=== PATIENT | female | born 1935 | race Caucasian/White ===

== ENCOUNTER → 2016-11-08 | Outpatient (CLI) | payer OTHER, BC ==
[~2016-11-08] MED LIST: ACET325T96 PO; ALBUAER19 INH; ALLO100T PO; AMLO-110 PO; ASPEC81 PO; ERGO500037 PO; FURO-85 PO; IPRASOL4 INH; ISOS30TA35 PO; LISI10TA PO; MAGN400T5 PO; METO25TA56 PO; MULT-506 PO; NITR0.4S UT; OMEP40CA41 PO; OXGN; PANT40TA PO; [UNRECOGNIZED DRUG - OTHER] OTB
[2016-11-08 12:26] LABS: BASO % 0.4 %; BASO ABS # 0.03 K/uL (0-0.2); COMPLETE YES; EOS % 1.2 %; HEMATOCRIT 40.9 % (37-47); IG% 0.4 %; LYMPH % 33.6 %; LYMPH ABS # 2.53 K/uL (1.2-3.4); MEAN CORPUSCULAR HEMOGLOBIN 32.2 pg (25-34); MEAN CORPUSCULAR HGB CONC 33.5 g/dl (32-36); MEAN PLATELET VOLUME 9.4 fL (7.4-10.4); MONO % 6.5 %; NEUT % 57.9 %; PLATELET COUNT 225 K/uL (130-400); RED BLOOD COUNT 4.26 M/uL (4.2-5.4); WHITE BLOOD COUNT 7.54 K/uL (4.8-10.8)
[2016-11-08 12:36] LABS: PROTHROMBIN TIME (PATIENT) 10.6 SECONDS (9.0-12.0)
[2016-11-08 12:55] LABS: BLOOD UREA NITROGEN 41 mg/dl (7-18); BUN/CREATININE RATIO 21.5 (10-20); CALCIUM 8.7 mg/dl (8.5-10.1); CARBON DIOXIDE 29 mmol/L (21-32); CHLORIDE 107 mmol/L (98-107); GLUCOSE 155 mg/dl (70-99); SODIUM 143 mmol/L (136-145)
[2016-11-08 13:06] LABS: ALB/GLOB RATIO 0.9 (0.9-2); ALKALINE PHOSPHATASE 129 U/L (45-117); ALT/SGPT 19 U/L (12-78); AST/SGOT 17 U/L (15-37); TOTAL IRON BINDING CAPACITY 279 mcg/dl (250-450)
== END | disposition home or self-care (01) ==
LOC: C.LABBFT 10:35
PROVIDERS: ATTEND Internal Medicine Pulmonary Disease
DX: L30.9 Dermatitis, unspecified (principal)

== ENCOUNTER → 2016-12-21 | Outpatient (CLI) | payer OTHER, BC ==
--- NOTE | 2016-12-21 12:17 | DIAGNOSTIC IMAGING REPORT ---
LEFT KNEE 1 OR 2 VIEWS ROUTINE CLINICAL HISTORY: Left knee pain COMPARISON: None. DISCUSSION: The bones are osteopenic. There are moderate osteoarthritic changes with medial joint compartment narrowing. There are medial joint compartment osteophytes. There are small lateral joint compartment osteophytes. There are tiny dorsal patellar spurs. No acute fractures are visualized. IMPRESSION: 1. No acute fracture 2. Osteopenia 3. Moderate osteoarthritic changes most pronounced within the medial joint compartment Electronically signed by: Nate Ribeiro M.D. 12/21/2016 12:15 PM Dictated Date/Time: 12/21/2016 12:15 PM
--- NOTE | 2016-12-21 12:18 | DIAGNOSTIC IMAGING REPORT ---
L-SPINE MIN 4 VIEWS ROUTINE CLINICAL HISTORY: M54.9 Back [id number] COMPARISON STUDY: No previous studies for comparison. FINDINGS: There is a mild spinal curvature convex to the right. There are no acute fractures. There are moderate multilevel degenerative changes most pronounced at the L1-2 and L2-3 levels. IMPRESSION: Moderate multilevel degenerative change. No acute fractures are visualized. Electronically signed by: Nate Ribeiro M.D. 12/21/2016 12:17 PM Dictated Date/Time: 12/21/2016 12:16 PM
[2016-12-21 12:23] LABS: BASO % 0.6 %; BASO ABS # 0.05 K/uL (0-0.2); COMPLETE YES; EOS % 0.7 %; HEMATOCRIT 37.9 % (37-47); IG% 0.5 %; LYMPH % 36.4 %; LYMPH ABS # 2.98 K/uL (1.2-3.4); MEAN CELL VOLUME 94.3 fL (80-100); MEAN CORPUSCULAR HEMOGLOBIN 31.6 pg (25-34); MEAN CORPUSCULAR HGB CONC 33.5 g/dl (32-36); MEAN PLATELET VOLUME 9.7 fL (7.4-10.4); MONO % 11.4 %; NEUT % 50.4 %; PLATELET COUNT 197 K/uL (130-400); RED BLOOD COUNT 4.02 M/uL (4.2-5.4); WHITE BLOOD COUNT 8.18 K/uL (4.8-10.8)
[2016-12-21 12:38] LABS: BLOOD UREA NITROGEN 34 mg/dl (7-18); BUN/CREATININE RATIO 17.2 (10-20); CALCIUM 9.1 mg/dl (8.5-10.1); CARBON DIOXIDE 28 mmol/L (21-32); CHLORIDE 106 mmol/L (98-107); GLUCOSE 181 mg/dl (70-99); POTASSIUM 5.2 mmol/L (3.5-5.1); SODIUM 140 mmol/L (136-145); URIC ACID 8.9 mg/dl (2.6-7.2)
== END | disposition home or self-care (01) ==
LOC: C.RAD 11:18
PROVIDERS: ATTEND Physician Assistant
DX: M47.816 Spondylosis without myelopathy or radiculopathy, lumbar region (principal); M25.562 Pain in left knee; M85.862 Other specified disorders of bone density and structure, left lower leg; M1A.00X0 Idiopathic chronic gout, unspecified site, without tophus (tophi)

== ENCOUNTER → 2016-12-29 | Outpatient (CLI) | payer OTHER, BC ==
--- NOTE | 2016-12-29 16:11 | DIAGNOSTIC IMAGING REPORT ---
THORACIC SPINE 3 VIEWS ROUTINE CLINICAL HISTORY: Back pain. COMPARISON STUDY: Chest radiograph February 20, 2013. FINDINGS: Alignment of the thoracic spine is anatomic. Vertebral body heights are maintained. No fracture. There is mild multilevel degenerative disc disease. IMPRESSION: 1. No acute thoracic spine fracture. 2. Mild multilevel degenerative disc disease of the thoracic spine. Electronically signed by: Mahad Ribeiro M.D. 12/29/2016 4:08 PM Dictated Date/Time: 12/29/2016 4:01 PM
== END | disposition home or self-care (01) ==
LOC: C.RAD 15:11
PROVIDERS: ATTEND Physician Assistant
DX: R30.0 Dysuria (principal); M51.34 Other intervertebral disc degeneration, thoracic region

== ENCOUNTER → 2017-01-03 | Outpatient (CLI) | payer OTHER, BC ==
[2017-01-03 18:39] LABS: URINE APPEARANCE CLEAR (CLEAR); URINE BILIRUBIN NEG (NEG); URINE COLOR YELLOW; URINE EPITHELIAL CELL AUTO 20-30 /lpf (0-5); URINE NITRITE NEG (NEG); URINE PH 5.5 (4.5-7.5); URINE SPECIFIC GRAVITY 1.017 (1.000-1.030); UROBILINOGEN NEG (NEG)
[2017-01-03 18:44] LABS: MANUAL MICROSCOPIC REQUIRED? NO; REVIEW REQ? NO
== END | disposition home or self-care (01) ==
LOC: C.LABSPEC 18:11
PROVIDERS: ATTEND Physician Assistant
DX: R30.0 Dysuria (principal)

== ENCOUNTER 2017-01-20 17:21 | Emergency (ER) | payer OTHER, BC ==
[~2017-01-20] VITALS: Ht 162.6 cm; Wt 105.0 kg
[~2017-01-20 17:21] MED LIST changes: -AMLO-110 PO; -ERGO500037 PO; -MULT-506 PO; -OMEP40CA41 PO
[2017-01-20 17:29] VITALS: TEMP 36.6; Ht 162.6 cm; Wt 105.0 kg
[2017-01-20] MEDS ORDERED: SODIUM CHLORIDE 0.9% 1000ML 500 ML IV STA (18:12)
[2017-01-20] MEDS ORDERED: SODIUM CHLORIDE 0.9% 1000ML 1,000 ML IV ONE (18:12)
--- NOTE | 2017-01-20 18:28 | EMERGENCY ROOM VISIT NOTE ---
History Report prepared by Florentino: Ale Anne Under the Supervision of: Dr. Kingston Baker M.D. First contact with patient: 18:00 Chief Complaint: DEHYDRATION Stated Complaint: DR PRESCRIBED FLUIDS & ABDOMEN CHECK Nursing Triage Summary: Triage note: Pt reports she has had abd bloating x 2 weeks and had x-rays done today and was called and told to come to ed for further eval. pt reports "he said it might be a partial blockage." pt reports she had bm last night. pt reports generalized abd pain. History of Present Illness The patient is an 81 year old female who presents to the Emergency Room with complaints of persistent abdominal pain and bloating that started two weeks ago. She rates her pain a 4/10. This pain worsens with eating and drinking. Associated symptoms include decreased urination, burning with urinating, intermittent chest pain, worsening lower back pain, and chronic pain in legs. The patient was examined by [facility] today who recommended she come in to the ED after x ray review showed constipation. The patient states that she was sent here for fluids and constipation. She reports having loose stools and frequent bowel movements. Her last bowel movement was last evening. The patient is currently being treated for a UTI and kidney failure. She denies fevers, numbness/weakness of legs, hematochezia, any any additional associated symptoms. The patient reports undergoing a recent chest x- ray, abdomen/pelvis x-ray, and blood work. Source of History: patient, transfer records, family Onset: Two weeks ago Position: abdomen Symptom Intensity: 4/10 Timing: other (Persistent ) Modifying Factors (Worsening): eating, drinking Associated Symptoms: + back pain, + chest pain, + urinary symptoms, No fevers, No hematochezia, No melena, No numbness, No weakness Review of Systems See HPI for pertinent positives & negatives. A total of 10 systems reviewed and were otherwise negative. 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 Nurse's notes were reviewed and I agree with. Family History FH: kidney disease Social History Smoking Status: Never Smoker Alcohol Use: none Drug Use: none Marital Status: Occupation Status: retired Current/Historical Medications Scheduled Albuterol Inhaler (Ventolin Inhaler), 2 PUFFS INH Q4HR PRN Allopurinol (Zyloprim), 100 MG PO DAILY Amlodipine (Norvasc), 5 MG PO QAM Aspirin Enteric Coated (Ecotrin Or Generic *), 81 MG PO DAILY Dexamethasone (Dexamethasone Sodium Phos), 3 DROP OTB 2XWK Ergocalciferol (Vitamin D 70234 Unit), 50,000 UNIT PO MONTHLY Furosemide (Lasix), 20 MG PO DAILY Isosorbide Mononitrate Ext Rel (Imdur Ext Rel), 60 MG PO QAM Lisinopril (Prinivil), 10 MG PO DAILY Magnesium Oxide (Mag-Ox), 400 MG PO DAILY Metoprolol Tartrate (Lopressor) (Lopressor), 12.5 MG PO BID Multivitamin (Multivitamin), 1 TAB PO DAILY Nitroglycerin (Nitrostat), 0.4 MG UT PRN Omeprazole (Prilosec), 40 MG PO QAM Oxygen (Oxygen), 2 LITERS NA HS Scheduled PRN Ipratropium-Albuterol (Duoneb), 1 TREATMENT INH Q4H PRN for SOB/Wheezing Allergies Coded Allergies: Cortisone (Verified Allergy, Intermediate, SWELLING, CHILLS, SHAKINESS, 01/20/17) Levofloxacin (Verified Allergy, Intermediate, SHORTNESS OF BREATH, 01/20/17) shakiness, flushed Aminoglycosides (Verified Allergy, Mild, 01/20/17) Azithromycin (Verified Allergy, Mild, 01/20/17) Bacitracin (Verified Allergy, Mild, 01/20/17) Benzonatate (Verified Allergy, Mild, 01/20/17) Cephalexin (Verified Allergy, Mild, RASH, 01/20/17) Neomycin (Verified Allergy, Mild, 01/20/17) Polymyxin B (Verified Allergy, Mild, 01/20/17) Acetaminophen (Unverified Allergy, Unknown, UNKNOWN, 01/20/17) Atorvastatin (Unverified Allergy, Unknown, UNKNOWN, 01/20/17) Febuxostat (Unverified Allergy, Unknown, UNKNOWN, 01/20/17) Indomethacin (Unverified Allergy, Unknown, UNKNOWN, 01/20/17) Methylprednisolone (Unverified Allergy, Unknown, UNKNOWN, 01/20/17) Oxycodone (Unverified Allergy, Unknown, UNKNOWN, 01/20/17) Prednisone (Unverified Allergy, Unknown, UNKNOWN, 01/20/17) Rosuvastatin (Unverified Allergy, Unknown, UNKNOWN, 01/20/17) Statins (Unverified Allergy, Unknown, UNKNOWN, 01/20/17) Physical Exam Vital Signs Date Time Temp Pulse Resp B/P Pulse Ox O2 Delivery O2 Flow Rate FiO2 01/20/17 20:53 63 18 177/56 93 01/20/17 20:15 63 18 161/54 95 Room Air 01/20/17 18:25 56 18 156/64 96 Room Air 01/20/17 17:29 36.6 62 18 157/79 96 Room Air Physical Exam General: Non ill appearing, older female, in no acute distress. HEENT: Normal cephalic atraumatic. Pupils are equal round and reactive to light. Extraocular movements are intact. Oropharynx is pink with moist mucous membranes. No swelling of the mouth lips or tongue. Neck: Supple with a midline trachea. No meningeal signs or stiffness, no JVD or bruits. No Stridor. Chest: Clear to auscultation bilaterally. No wheezes or rhonchi. No increased work of breathing. Heart: regular rate and rhythm. Abdomen: Soft nontender, nondistended without rebound guarding or rigidity. Extremities: No cyanosis clubbing or edema. No calf tenderness or assymetry Spine/Back. Tenderness to left lower back. Skin: Good turgor without rashes. Neurologic exam: Cranial nerves two through 12 are intact. Motor and sensation are intact and symmetrical throughout. Medical Decision & Procedures ER Provider Diagnostic Interpretation: Radiology results as stated below per my review and radiologist interpretation: MRI LUMBAR SPINE W/O CONTRAST CLINICAL HISTORY: Back pain with left leg radiculopathy. TECHNIQUE: Sagittal and axial T1, T2 and STIR images were obtained. COMPARISON STUDY: No previous studies for comparison. OBSERVATIONS: There is a 1 cm area of marrow replacement involving the inferior L3 vertebral body abutting the L3-4 disc. This lesion is indeterminate, but possibly represents a Schmorl's node. L1-2: There is a mild circumferential disc bulge. There is facet joint arthropathy. There is very minor spinal canal narrowing. There is no significant foraminal stenosis L2-3: There is a circumferential disc bulge. There is facet joint arthropathy. There is mild spinal canal narrowing. L3-4: There is a mild circumferential disc bulge. There is facet joint arthropathy. There is mild spinal canal narrowing. L4-5: There is a mild circumferential disc bulge. There is facet joint arthropathy. There is no significant spinal or foraminal stenosis. L5-S1: No disc protrusions or extrusions. No evidence of spinal canal or neural foraminal compromise. The conus medullaris and cauda equina appear normal. IMPRESSION: 1. Multilevel spondylitic changes with multilevel disc bulges and multilevel facet joint arthropathy. This results in mild spinal stenosis the L1-2, L2-3, and L3-4 levels. 2. 1 cm area of marrow replacement involving the inferior L2-3 vertebral body. While indeterminate, a Schmorl's node is favored Electronically signed by: Nate Ribeiro M.D. 01/20/2017 7:50 PM Dictated Date/Time: 01/20/2017 7:[address] SCAN OF THE ABDOMEN AND PELVIS WITHOUT CONTRAST CLINICAL HISTORY: Generalized abdominal pain COMPARISON STUDY: 11/24/2014 TECHNIQUE: CT scan of the abdomen and pelvis was performed from the lung bases to the proximal femurs. Images are reviewed in the axial, sagittal, and coronal planes. IV contrast was not administered for this examination. CT DOSE: 1891.80 mGy.cm FINDINGS: Lower chest: There are bibasal atelectatic changes. There is subpleural interstitial thickening. There is a 5 mm left lower lobe pulmonary nodule, unchanged the preceding study. There is a small hiatal hernia Liver: The unenhanced liver is normal in size, contour, and attenuation. There is no intrahepatic biliary ductal dilatation. Gallbladder: Surgically absent Spleen: Normal in size and attenuation. Pancreas: Unremarkable. Adrenal glands: Unremarkable. Kidneys: There is a 15 mm left renal cyst. No renal calculi are visualized. No ureteral or bladder calculi are visualized Bowel: There are no transition zones indicate bowel obstruction. There is no acute diverticulitis. The appendix appears normal. Peritoneum: There is no intraperitoneal free air or abdominal ascites. There is a tiny fat-containing umbilical hernia. There is a tiny fat-containing superior ventral hernia. Vasculature: The abdominal aorta is normal in course and caliber. Adenopathy: None. Pelvic viscera: The uterus appears surgically absent. Skeletal structures: No destructive osseous lesions are seen. IMPRESSION: 1. Stable 5 mm left lower lobe pulmonary nodule 2. No evidence of bowel obstruction. No evidence of free air 3. No renal, ureteral, or bladder calculi identified 4. No evidence of acute diverticulitis. Normal appendix. Electronically signed by: Nate Ribeiro M.D. 01/20/2017 7:13 PM Dictated Date/Time: 01/20/2017 7:09 PM Laboratory Results Test 01/20/17 18:42 Total Bilirubin 0.3 mg/dl (0.2-1) Direct Bilirubin 0.1 mg/dl (0-0.2) Aspartate Amino Transf (AST/SGOT) 22 U/L (15-37) Alanine Aminotransferase (ALT/SGPT) 30 U/L (12-78) Alkaline Phosphatase 124 U/L (45-117) Total Creatine Kinase 20 U/L (26-192) Creatine Kinase MB < 0.5 ng/ml (0.5-3.6) Creatine Kinase MB Ratio (0-3.0) Total Protein 6.8 gm/dl (6.4-8.2) Albumin 3.2 gm/dl (3.4-5.0) Lipase 113 U/L (73-393) Laboratory studies as stated above per my review. Medications Administered Medications (Trade) Dose Ordered Sig/Jabier Route Start Time Stop Time Status Last Admin Dose Admin Sodium Chloride 500 ml @ 999 mls/hr Q31M STAT IV 01/20/17 18:12 01/20/17 18:42 DC 01/20/17 18:12 999 MLS/HR Sodium Chloride (Nss 1000ml) 1,000 ml @ 150 mls/hr Q6H40M ONCE IV 01/20/17 18:12 01/20/17 21:19 DC 01/20/17 20:19 150 MLS/HR ECG Indication: back/shoulder pain Rate (beats per minute): 61 Rhythm: normal sinus Findings: 1st degree AV block, no acute ischemic change Comparison ECG Date: December 02, 2015 Change: no significant change ED Course 1801: Past medical records reviewed. The patient was evaluated in room C7, and a complete history and physical examination were performed. 1903: Upon reevaluation, the patient is doing well. She will be going to CT soon. 1946: Patient is at MRI. 2005: Upon reevaluation, the patient is resting comfortably. 2045: Upon reevaluation, the patient had relief of her symptoms. I discussed the results and treatment plan with the patient. She verbalized agreement of the treatment plan. The patient was discharged home. Medical Decision Differentials include, but are not limited to; Constipation, infection, dehydration, cardiac disease, Cauda Equina syndrome, spinal process, bowel obstruction. This patient was sent over by primary care doctor. She was placed in room C7. She had extensive workup done including blood work which shows baseline renal insufficiency. She was found to have constipation on a x-ray. She's been having back pain rating to her leg she also has a bowel or bladder issues in light of this, I did a a lumbar's MRI. I also did a CAT scan of her abdomen there is no evidence of obstruction. She was gently hydrated and was reassessed frequently. She has remained stable she did receive some hydration. Her EKG and cardiac workup does not suggest acute cardiac event nor do her symptoms. CAT scan of the abdomen shows no acute findings or obstruction. MRI does not reveal any evidence of cauda equina syndrome. She has a some degenerative changes that could be causing her back pain but she has no evidence to suggest acute neurologic or cord compromise. She feels good and would like to go home. She does not use a stool softener or MiraLAX. She should return if : increasing pain, worsening of symptoms, fever or chills, any new problems or concerns. She was happy with the plan and discharged to home. Impression Primary Impression: Back pain Additional Impressions: Constipation Lumbar degenerative disc disease Scribe Attestation The scribe's documentation has been prepared under my direction and personally reviewed by me in its entirety. I confirm that the note above accurately reflects all work, treatment, procedures, and medical decision making performed by me. Departure Information Dispostion Home / Self-Care Referrals Cal Birmingham PA-C (PCP) Forms HOME CARE DOCUMENTATION FORM, IMPORTANT VISIT INFORMATION, WORK / SCHOOL INSTRUCTIONS Patient Instructions My [facility] Additional Instructions Rest Drink plenty of fluids May use a stool softener like MiraLAX if needed Return if: Increasing pain, worsening of symptoms, fever or chills, any new problems or concerns. Follow-up with your doctor Monday for recheck Problem Qualifiers
--- NOTE | 2017-01-20 19:14 | DIAGNOSTIC IMAGING REPORT ---
CT SCAN OF THE ABDOMEN AND PELVIS WITHOUT CONTRAST CLINICAL HISTORY: Generalized abdominal pain COMPARISON STUDY: 11/24/2014 TECHNIQUE: CT scan of the abdomen and pelvis was performed from the lung bases to the proximal femurs. Images are reviewed in the axial, sagittal, and coronal planes. IV contrast was not administered for this examination. CT DOSE: 1891.80 mGy.cm FINDINGS: Lower chest: There are bibasal atelectatic changes. There is subpleural interstitial thickening. There is a 5 mm left lower lobe pulmonary nodule, unchanged the preceding study. There is a small hiatal hernia Liver: The unenhanced liver is normal in size, contour, and attenuation. There is no intrahepatic biliary ductal dilatation. Gallbladder: Surgically absent Spleen: Normal in size and attenuation. Pancreas: Unremarkable. Adrenal glands: Unremarkable. Kidneys: There is a 15 mm left renal cyst. No renal calculi are visualized. No ureteral or bladder calculi are visualized Bowel: There are no transition zones indicate bowel obstruction. There is no acute diverticulitis. The appendix appears normal. Peritoneum: There is no intraperitoneal free air or abdominal ascites. There is a tiny fat-containing umbilical hernia. There is a tiny fat-containing superior ventral hernia. Vasculature: The abdominal aorta is normal in course and caliber. Adenopathy: None. Pelvic viscera: The uterus appears surgically absent. Skeletal structures: No destructive osseous lesions are seen. IMPRESSION: 1. Stable 5 mm left lower lobe pulmonary nodule 2. No evidence of bowel obstruction. No evidence of free air 3. No renal, ureteral, or bladder calculi identified 4. No evidence of acute diverticulitis. Normal appendix. Electronically signed by: Nate Ribeiro M.D. 01/20/2017 7:13 PM Dictated Date/Time: 01/20/2017 7:09 PM
[2017-01-20 19:30] LABS: ALKALINE PHOSPHATASE 124 U/L (45-117); ALT/SGPT 30 U/L (12-78); AST/SGOT 22 U/L (15-37)
--- NOTE | 2017-01-20 19:51 | DIAGNOSTIC IMAGING REPORT ---
MRI LUMBAR SPINE W/O CONTRAST CLINICAL HISTORY: Back pain with left leg radiculopathy. TECHNIQUE: Sagittal and axial T1, T2 and STIR images were obtained. COMPARISON STUDY: No previous studies for comparison. OBSERVATIONS: There is a 1 cm area of marrow replacement involving the inferior L3 vertebral body abutting the L3-4 disc. This lesion is indeterminate, but possibly represents a Schmorl's node. L1-2: There is a mild circumferential disc bulge. There is facet joint arthropathy. There is very minor spinal canal narrowing. There is no significant foraminal stenosis L2-3: There is a circumferential disc bulge. There is facet joint arthropathy. There is mild spinal canal narrowing. L3-4: There is a mild circumferential disc bulge. There is facet joint arthropathy. There is mild spinal canal narrowing. L4-5: There is a mild circumferential disc bulge. There is facet joint arthropathy. There is no significant spinal or foraminal stenosis. L5-S1: No disc protrusions or extrusions. No evidence of spinal canal or neural foraminal compromise. The conus medullaris and cauda equina appear normal. IMPRESSION: 1. Multilevel spondylitic changes with multilevel disc bulges and multilevel facet joint arthropathy. This results in mild spinal stenosis the L1-2, L2-3, and L3-4 levels. 2. 1 cm area of marrow replacement involving the inferior L2-3 vertebral body. While indeterminate, a Schmorl's node is favored Electronically signed by: Nate Ribeiro M.D. 01/20/2017 7:50 PM Dictated Date/Time: 01/20/2017 7:44 PM
[2017-01-20] MEDS ORDERED: MULT-506 PO (20:17)
[2017-01-20] MEDS ORDERED: ERGO500037 PO (20:17)
[2017-01-20] MEDS ORDERED: AMLO-110 PO (20:17)
[2017-01-20] MEDS ORDERED: OMEP40CA41 PO (20:17)
[2017-01-20 20:53] VITALS: BP 177/56; PULSE 63; O2SAT 93
== END 2017-01-20 20:51 | disposition home or self-care (01) ==
LOC: C.EDB 17:23 → C.EDC 20:51
DX: M54.5 Low back pain (principal); K59.00 Constipation, unspecified; M51.26 Other intervertebral disc displacement, lumbar region; I44.0 Atrioventricular block, first degree; I25.10 Atherosclerotic heart disease of native coronary artery without angina pectoris; E11.22 Type 2 diabetes mellitus with diabetic chronic kidney disease; K21.9 Gastro-esophageal reflux disease without esophagitis; E78.5 Hyperlipidemia, unspecified; J45.909 Unspecified asthma, uncomplicated; R19.7 Diarrhea, unspecified; N83.209 Unspecified ovarian cyst, unspecified side; Z86.718 Personal history of other venous thrombosis and embolism; Z90.49 Acquired absence of other specified parts of digestive tract; Z98.890 Other specified postprocedural states; Z79.82 Long term (current) use of aspirin; Z79.899 Other long term (current) drug therapy; Z88.1 Allergy status to other antibiotic agents; Z88.5 Allergy status to narcotic agent; Z88.6 Allergy status to analgesic agent; Z88.8 Allergy status to other drugs, medicaments and biological substances; I12.9 Hypertensive chronic kidney disease with stage 1 through stage 4 chronic kidney disease, or unspecified chronic kidney disease; N18.3 Chronic kidney disease, stage 3 (moderate); E55.9 Vitamin D deficiency, unspecified; R60.9 Edema, unspecified; R30.0 Dysuria; R51 Headache; R06.02 Shortness of breath

== ENCOUNTER → 2017-01-20 | Outpatient (CLI) | payer OTHER, BC ==
[2017-01-20 13:51] LABS: BASO % 0.5 %; BASO ABS # 0.04 K/uL (0-0.2); COMPLETE YES; EOS % 2.1 %; HEMATOCRIT 38.3 % (37-47); IG% 0.6 %; LYMPH ABS # 4.25 K/uL (1.2-3.4); MEAN CELL VOLUME 94.8 fL (80-100); MEAN CORPUSCULAR HEMOGLOBIN 31.4 pg (25-34); MEAN CORPUSCULAR HGB CONC 33.2 g/dl (32-36); MEAN PLATELET VOLUME 8.7 fL (7.4-10.4); MONO % 7.6 %; NEUT % 41.2 %; PLATELET COUNT 242 K/uL (130-400); RED BLOOD COUNT 4.04 M/uL (4.2-5.4); WHITE BLOOD COUNT 8.85 K/uL (4.8-10.8)
--- NOTE | 2017-01-20 14:01 | DIAGNOSTIC IMAGING REPORT ---
PA CHEST WITH ABDOMINAL SERIES CLINICAL HISTORY: Constipation. Bloating. FINDINGS: A PA chest radiograph is compared to study dated 03/17/2016. The examination is degraded by patient rotation. The heart is top normal for projection. There is atherosclerotic calcification of the thoracic aorta. Chronic interstitial thickening is unchanged. No airspace consolidation, large pleural effusion, or pneumothorax is seen. The skeletal structures are osteopenic. Degenerative changes noted throughout the thoracic spine. Supine and erect abdominal radiographs are correlated with abdominal CT dated 11/24/2014 and compared to study dated 12/02/2015. There is a nonobstructed abdominal bowel gas pattern. No evidence of intraperitoneal free air is seen. Cholecystectomy clips are identified in the right upper quadrant. There is moderate colonic fecal retention. Calcified phleboliths are observed in the pelvis. There is moderate lumbosacral spondylosis. The bony pelvis appears intact. IMPRESSION: 1. No active disease in the chest. 2. Moderate constipation. Electronically signed by: Dale Parra M.D. 01/20/2017 1:59 PM Dictated Date/Time: 01/20/2017 1:57 PM
[2017-01-20 14:11] LABS: BLOOD UREA NITROGEN 53 mg/dl (7-18); CALCIUM 8.9 mg/dl (8.5-10.1); CARBON DIOXIDE 31 mmol/L (21-32); CHLORIDE 108 mmol/L (98-107); GLUCOSE 216 mg/dl (70-99); MAGNESIUM 2.1 mg/dl (1.8-2.4); PHOSPHORUS 3.3 mg/dl (2.5-4.9); POTASSIUM 4.7 mmol/L (3.5-5.1); SODIUM 144 mmol/L (136-145)
[2017-01-20 14:29] LABS: ALB/GLOB RATIO 0.9 (0.9-2); ALKALINE PHOSPHATASE 130 U/L (45-117); ALT/SGPT 31 U/L (12-78); AST/SGOT 24 U/L (15-37); BLOOD UREA NITROGEN 52 mg/dl (7-18); BUN/CREATININE RATIO 22.7 (10-20); CARBON DIOXIDE 31 mmol/L (21-32); CHLORIDE 109 mmol/L (98-107); GLUCOSE 211 mg/dl (70-99); POTASSIUM 4.6 mmol/L (3.5-5.1); SODIUM 145 mmol/L (136-145)
[2017-01-20 14:54] LABS: URINE APPEARANCE CLEAR (CLEAR); URINE BILIRUBIN NEG (NEG); URINE COLOR YELLOW; URINE EPITHELIAL CELL AUTO >30 /lpf (0-5); URINE NITRITE NEG (NEG); URINE SPECIFIC GRAVITY 1.015 (1.000-1.030); UROBILINOGEN NEG (NEG)
[2017-01-20 15:01] LABS: URINE PROTIEN/CREAT RATIO 0.1 (0-0.2); URINE TOTAL PROTEIN 11.7 mg/dl (0-11.9)
[2017-01-20 15:05] LABS: MANUAL MICROSCOPIC REQUIRED? NO; REVIEW REQ? NO
== END | disposition home or self-care (01) ==
LOC: C.RAD 13:13
PROVIDERS: ATTEND Physician Assistant
DX: I12.9 Hypertensive chronic kidney disease with stage 1 through stage 4 chronic kidney disease, or unspecified chronic kidney disease (principal); N18.3 Chronic kidney disease, stage 3 (moderate); E55.9 Vitamin D deficiency, unspecified; R60.9 Edema, unspecified; R30.0 Dysuria; R51 Headache; K59.00 Constipation, unspecified; R06.02 Shortness of breath

== ENCOUNTER → 2017-02-02 | Outpatient (CLI) | payer OTHER, BC ==
[~2017-02-02] MED LIST changes: -ACET325T96 PO; +AMLO-110 PO; +ERGO500037 PO; +MULT-506 PO; +OMEP40CA41 PO; -PANT40TA PO
--- NOTE | 2017-02-02 14:17 | DIAGNOSTIC IMAGING REPORT ---
ABDOMEN 2VIEW W/PA CHEST RTN CLINICAL HISTORY: K59.00 [id number] Abdominal [id number] COMPARISON STUDY: 01/20/2017 FINDINGS: The heart is at the upper limits of normal in size. A lower lip paraspinal opacity, likely represents a summation of vascular markings and osteophytes. There is no free air. There is no focal pulmonary consolidation. Erect and supine views the abdomen reveal surgical clips within the right upper quadrant. There are no transition zones indicate bowel obstruction. There is scattered stool within the colon. There is a thoracolumbar scoliosis. There are scattered air-fluid levels present. IMPRESSION: No evidence of bowel obstruction. No evidence of free air. Electronically signed by: Nate Ribeiro M.D. 02/02/2017 2:15 PM Dictated Date/Time: 02/02/2017 2:14 PM
== END | disposition home or self-care (01) ==
LOC: C.RAD 12:55
PROVIDERS: ATTEND Physician Assistant
DX: R14.0 Abdominal distension (gaseous) (principal); K59.00 Constipation, unspecified

== ENCOUNTER → 2017-02-24 | Outpatient (CLI) | payer OTHER, BC ==
[2017-02-24 12:40] LABS: URINE APPEARANCE CLEAR (CLEAR); URINE BILIRUBIN NEG (NEG); URINE COLOR YELLOW; URINE EPITHELIAL CELL AUTO >30 /lpf (0-5); URINE NITRITE NEG (NEG); URINE PH 5.5 (4.5-7.5); URINE SPECIFIC GRAVITY 1.016 (1.000-1.030); UROBILINOGEN NEG (NEG)
[2017-02-24 12:45] LABS: MANUAL MICROSCOPIC REQUIRED? NO; REVIEW REQ? NO
== END | disposition home or self-care (01) ==
LOC: C.LABBFT 10:55
PROVIDERS: ATTEND Physician Assistant
DX: R30.0 Dysuria (principal)

== ENCOUNTER → 2017-03-09 | Outpatient (CLI) | payer OTHER, BC ==
--- NOTE | 2017-03-09 11:42 | DIAGNOSTIC IMAGING REPORT ---
RIGHT KNEE 1 OR 2 VIEWS ROUTINE CLINICAL HISTORY: Right knee pain status post trauma COMPARISON: None. DISCUSSION: No acute fractures are visualized. There are degenerative changes most pronounced involving the medial joint compartment. There is no radiographic evidence of significant joint effusion. Vascular calcifications are evident IMPRESSION: Moderate osteoarthritic change. No acute fractures. Electronically signed by: Nate Ribeiro M.D. 03/09/2017 11:41 AM Dictated Date/Time: 03/09/2017 11:40 AM
== END | disposition home or self-care (01) ==
LOC: C.RAD 11:14
PROVIDERS: ATTEND Physician Assistant
DX: M25.561 Pain in right knee (principal); Z91.81 History of falling; M17.11 Unilateral primary osteoarthritis, right knee

== ENCOUNTER → 2017-03-14 | Outpatient (CLI) | payer OTHER, BC ==
--- NOTE | 2017-03-14 11:46 | DIAGNOSTIC IMAGING REPORT ---
GI W/AIR SMALL BOWEL ROUTINE CLINICAL HISTORY: R14.0 Abdominal [id number] COMPARISON STUDY: Chest and abdominal series 03/08/2017. FLUOROSCOPY TIME: 1.6 minutes. 27 images submitted. FINDINGS: The patient swallowed barium without difficulty. The esophagus is normal and course and caliber. No gastroesophageal reflux. Small sliding hiatal hernia. No gastric ulcerations. The duodenal bulb and duodenal C sweep are within normal limits. Multiple additional fluoroscopic spot and overhead images of the abdomen were performed to evaluate the small bowel. The small bowel is normal in course and caliber. No evidence for bowel obstruction. The terminal ileum is normally distensible. Contrast extended into the colon at 20 minutes. Moderate well-formed stool seen within the colon. IMPRESSION: 1. Small hiatus hernia. 2. Small bowel follow-through is within normal limits. 3. Moderate well-formed stool seen within the colon. Electronically signed by: Tr Velásquez M.D. 03/14/2017 11:17 AM Dictated Date/Time: 03/14/2017 11:12 AM
== END | disposition home or self-care (01) ==
LOC: C.RAD 09:19
PROVIDERS: ATTEND Registered Nurse
DX: R14.0 Abdominal distension (gaseous) (principal); K44.9 Diaphragmatic hernia without obstruction or gangrene

== ENCOUNTER → 2017-04-21 | Outpatient (CLI) | payer OTHER, BC ==
[2017-04-21 12:30] LABS: BASO % 0.4 %; BASO ABS # 0.04 K/uL (0-0.2); COMPLETE YES; EOS % 2.2 %; HEMATOCRIT 42.7 % (37-47); IG% 0.2 %; LYMPH % 36.2 %; LYMPH ABS # 3.31 K/uL (1.2-3.4); MEAN CELL VOLUME 94.5 fL (80-100); MEAN CORPUSCULAR HEMOGLOBIN 31.4 pg (25-34); MEAN CORPUSCULAR HGB CONC 33.3 g/dl (32-36); MEAN PLATELET VOLUME 9.9 fL (7.4-10.4); MONO % 7.8 %; NEUT % 53.2 %; PLATELET COUNT 213 K/uL (130-400); RED BLOOD COUNT 4.52 M/uL (4.2-5.4); WHITE BLOOD COUNT 9.14 K/uL (4.8-10.8)
[2017-04-21 12:48] LABS: ALT/SGPT 24 U/L (12-78); AMYLASE 44 U/L (25-115); AST/SGOT 20 U/L (15-37); BLOOD UREA NITROGEN 53 mg/dl (7-18); CALCIUM 9.1 mg/dl (8.5-10.1); CARBON DIOXIDE 28 mmol/L (21-32); CHLORIDE 108 mmol/L (98-107); GLUCOSE 154 mg/dl (70-99); POTASSIUM 4.7 mmol/L (3.5-5.1); SODIUM 141 mmol/L (136-145)
[2017-04-21 12:51] LABS: ALB/GLOB RATIO 0.9 (0.9-2); ALKALINE PHOSPHATASE 111 U/L (45-117); C-REACTIVE PROTEIN < 0.29 mg/dl (0-0.29)
== END | disposition home or self-care (01) ==
LOC: C.LABBFT 09:45
PROVIDERS: ATTEND Internal Medicine
DX: R14.0 Abdominal distension (gaseous) (principal)

== ENCOUNTER → 2017-05-31 | Outpatient (CLI) | payer OTHER, BC ==
[2017-05-31 17:19] LABS: BASO % 0.4 %; BASO ABS # 0.04 K/uL (0-0.2); COMPLETE YES; EOS % 1.5 %; HEMATOCRIT 42.5 % (37-47); IG% 0.5 %; LYMPH % 38.1 %; LYMPH ABS # 3.95 K/uL (1.2-3.4); MEAN CELL VOLUME 92.4 fL (80-100); MEAN CORPUSCULAR HEMOGLOBIN 31.1 pg (25-34); MEAN CORPUSCULAR HGB CONC 33.6 g/dl (32-36); MEAN PLATELET VOLUME 9.8 fL (7.4-10.4); MONO % 6.7 %; NEUT % 52.8 %; PLATELET COUNT 221 K/uL (130-400); WHITE BLOOD COUNT 10.38 K/uL (4.8-10.8)
[2017-05-31 17:29] LABS: URINE APPEARANCE CLEAR (CLEAR); URINE BILIRUBIN NEG (NEG); URINE COLOR YELLOW; URINE EPITHELIAL CELL AUTO 20-30 /lpf (0-5); URINE NITRITE NEG (NEG); URINE SPECIFIC GRAVITY 1.019 (1.000-1.030); UROBILINOGEN NEG (NEG)
[2017-05-31 17:34] LABS: MANUAL MICROSCOPIC REQUIRED? NO; REVIEW REQ? NO
[2017-05-31 17:44] LABS: ALT/SGPT 20 U/L (12-78); AST/SGOT 16 U/L (15-37); BLOOD UREA NITROGEN 40 mg/dl (7-18); BUN/CREATININE RATIO 23.6 (10-20); CARBON DIOXIDE 33 mmol/L (21-32); CHLORIDE 107 mmol/L (98-107); GLUCOSE 154 mg/dl (70-99); POTASSIUM 5.2 mmol/L (3.5-5.1); SODIUM 144 mmol/L (136-145)
[2017-05-31 17:48] LABS: ALB/GLOB RATIO 0.9 (0.9-2); ALKALINE PHOSPHATASE 122 U/L (45-117); TOTAL IRON BINDING CAPACITY 299 mcg/dl (250-450)
[2017-06-01 06:18] LABS: ESTIMATED AVERAGE GLUCOSE 180 mg/dl; HA1C FLAG Normal (Normal)
--- NOTE | 2017-06-12 12:13 | CODING QUERY MEDICAL NECESSITY ---
CQSUPPORTING DIAGNOSIS NEEDED A supporting diagnosis is required for the test/procedure performed on this patient in order for us to be reimbursed by the patient's insurance. Please provide a supporting diagnosis for the following test/procedure listed below next to the test name along with your signature. *If there is no additional diagnosis for this patient that would support the following test/procedure please document that below next to the test/procedure. Test(s)/Procedure(s) that require a supporting diagnosis: DOS 05/31/17 URINE CULTURE TEST GLYCATED HEMOGLOBIN SERUM IRON TESTS TESTS ORDERED BY AKIN ENGLE Provider Signature: Date: Thank you Radha Scott Health Information Management Once completed, please kindly fax back to [phone] For questions please call [phone]
== END | disposition home or self-care (01) ==
LOC: C.LAB1850 16:03
PROVIDERS: ATTEND Physician Assistant
DX: I95.1 Orthostatic hypotension (principal); G47.33 Obstructive sleep apnea (adult) (pediatric)

== ENCOUNTER → 2017-07-12 | Outpatient (CLI) | payer OTHER, BC ==
[2017-07-12 16:41] LABS: BASO % 0.5 %; BASO ABS # 0.04 K/uL (0-0.2); COMPLETE YES; EOS % 2.1 %; HEMATOCRIT 38.7 % (37-47); IG% 0.2 %; LYMPH % 39.7 %; LYMPH ABS # 3.46 K/uL (1.2-3.4); MEAN CELL VOLUME 92.8 fL (80-100); MEAN CORPUSCULAR HEMOGLOBIN 31.2 pg (25-34); MEAN CORPUSCULAR HGB CONC 33.6 g/dl (32-36); MEAN PLATELET VOLUME 9.5 fL (7.4-10.4); MONO % 6.2 %; NEUT % 51.3 %; PLATELET COUNT 209 K/uL (130-400); RED BLOOD COUNT 4.17 M/uL (4.2-5.4); WHITE BLOOD COUNT 8.72 K/uL (4.8-10.8)
[2017-07-12 17:10] LABS: ALT/SGPT 16 U/L (12-78); AST/SGOT 15 U/L (15-37); BLOOD UREA NITROGEN 41 mg/dl (7-18); CALCIUM 9.2 mg/dl (8.5-10.1); CARBON DIOXIDE 30 mmol/L (21-32); CHLORIDE 107 mmol/L (98-107); CREATININE 1.62 mg/dl (0.60-1.20); GLUCOSE 150 mg/dl (70-99); POTASSIUM 4.6 mmol/L (3.5-5.1); SODIUM 143 mmol/L (136-145)
[2017-07-12 17:14] LABS: ALB/GLOB RATIO 0.9 (0.9-2); ALKALINE PHOSPHATASE 108 U/L (45-117); TOTAL IRON BINDING CAPACITY 286 mcg/dl (250-450)
== END | disposition home or self-care (01) ==
LOC: C.LAB1850 15:03
PROVIDERS: ATTEND Physician Assistant
DX: M62.81 Muscle weakness (generalized) (principal)

== ENCOUNTER 2017-08-01 17:37 | Emergency (ER) | payer OTHER, BC ==
[~2017-08-01] VITALS: Ht 162.6 cm; Wt 103.0 kg
[2017-08-01 17:43] VITALS: TEMP 36.8; Ht 162.6 cm; Wt 103.0 kg
[2017-08-01 18:21] LABS: BASO % 0.7 %; BASO ABS # 0.06 K/uL (0-0.2); COMPLETE YES; EOS % 2.8 %; HEMATOCRIT 38.7 % (37-47); IG% 0.2 %; LYMPH % 44.5 %; LYMPH ABS # 3.86 K/uL (1.2-3.4); MEAN CELL VOLUME 93.3 fL (80-100); MEAN CORPUSCULAR HEMOGLOBIN 31.6 pg (25-34); MEAN CORPUSCULAR HGB CONC 33.9 g/dl (32-36); MEAN PLATELET VOLUME 9.1 fL (7.4-10.4); NEUT % 43.8 %; PLATELET COUNT 198 K/uL (130-400); RED BLOOD COUNT 4.15 M/uL (4.2-5.4); WHITE BLOOD COUNT 8.67 K/uL (4.8-10.8)
[2017-08-01 18:31] LABS: PARTIAL THROMBOPLASTIN RATIO 0.9; PROTHROMBIN TIME (PATIENT) 10.3 SECONDS (9.0-12.0)
[2017-08-01 18:37] LABS: BUN/CREATININE RATIO 23.7 (10-20); CALCIUM 8.9 mg/dl (8.5-10.1); CREATININE 1.64 mg/dl (0.60-1.20); POTASSIUM 4.1 mmol/L (3.5-5.1)
--- NOTE | 2017-08-01 19:46 | DIAGNOSTIC IMAGING REPORT ---
R ART DOP DUP UPPER EXT UNI CLINICAL HISTORY: 82 years-old Female presenting with right first digit dusky. TECHNIQUE: Real-time grayscale and color and spectral Doppler ultrasound imaging of the bilateral carotid arteries was performed. NASCET criteria was used in evaluating this study. COMPARISON: None. FINDINGS: Right: Subclavian artery: Patent. Peak systolic velocity 114 cm/s. Brachial artery: Patent. Peak systolic velocity 215 cm/s. Radial artery: Patent. Peak systolic velocity 78 cm/s. Ulnar artery: Patent. Peak systolic velocity 63 cm/s. Normal peripheral arterial waveforms and color Doppler flow also visualized in the first and second digits in the area of clinical interest. IMPRESSION: No evidence of arterial occlusion in the right upper extremity arteries. Electronically signed by: Byron Mccrary M.D. 08/01/2017 7:44 PM Dictated Date/Time: 08/01/2017 7:42 PM
--- NOTE | 2017-08-01 19:57 | EMERGENCY ROOM VISIT NOTE ---
ED Visit Note First contact with patient: 19:55 I have seen and examined this patient with Josee Ledezma and generally agree with the treatment plan as discussed. 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 (11) Mass of ovary Status: Resolved (12) OVARIAN CYST NEC/NOS Status: Resolved (13) Pneumonia Status: Resolved Surgical Problems: (1) Appendectomy Status: Resolved (2) Cholecystectomy Status: Resolved (3) Removal of ovarian cyst Status: Resolved (4) Tonsillectomy Status: Resolved Current/Historical Medications Scheduled Albuterol Inhaler (Ventolin Inhaler), 2 PUFFS INH Q4HR PRN Allopurinol (Zyloprim), 100 MG PO DAILY Amlodipine (Norvasc), 5 MG PO QAM Aspirin Enteric Coated (Ecotrin Or Generic *), 81 MG PO DAILY Dexamethasone (Dexamethasone Sodium Phos), 3 DROP OTB 2XWK Ergocalciferol (Vitamin D 65880 Unit), 50,000 UNIT PO MONTHLY Furosemide (Lasix), 20 MG PO DAILY Home O2 Therapy (Oxygen), 2 LITERS NA HS Isosorbide Mononitrate Ext Rel (Imdur Ext Rel), 60 MG PO QAM Lisinopril (Prinivil), 10 MG PO DAILY Magnesium Oxide (Mag-Ox), 400 MG PO DAILY Metoprolol Tartrate (Lopressor) (Lopressor), 12.5 MG PO BID Multivitamin (Multivitamin), 1 TAB PO DAILY Nitroglycerin (Nitrostat), 0.4 MG UT PRN Omeprazole (Prilosec), 40 MG PO QAM Scheduled PRN Ipratropium-Albuterol (Duoneb), 1 TREATMENT INH Q4H PRN for SOB/Wheezing Allergies Coded Allergies: Cortisone (Verified Allergy, Intermediate, SWELLING, CHILLS, SHAKINESS, 01/20/17) Levofloxacin (Verified Allergy, Intermediate, SHORTNESS OF BREATH, 01/20/17) shakiness, flushed Aminoglycosides (Verified Allergy, Mild, 01/20/17) Azithromycin (Verified Allergy, Mild, 01/20/17) Bacitracin (Verified Allergy, Mild, 01/20/17) Benzonatate (Verified Allergy, Mild, 01/20/17) Cephalexin (Verified Allergy, Mild, RASH, 01/20/17) Neomycin (Verified Allergy, Mild, 01/20/17) Polymyxin B (Verified Allergy, Mild, 01/20/17) Acetaminophen (Unverified Allergy, Unknown, UNKNOWN, 01/20/17) Atorvastatin (Unverified Allergy, Unknown, UNKNOWN, 01/20/17) Febuxostat (Unverified Allergy, Unknown, UNKNOWN, 01/20/17) Indomethacin (Unverified Allergy, Unknown, UNKNOWN, 01/20/17) Methylprednisolone (Unverified Allergy, Unknown, UNKNOWN, 01/20/17) Oxycodone (Unverified Allergy, Unknown, UNKNOWN, 01/20/17) Prednisone (Unverified Allergy, Unknown, UNKNOWN, 01/20/17) Rosuvastatin (Unverified Allergy, Unknown, UNKNOWN, 01/20/17) Statins (Unverified Allergy, Unknown, UNKNOWN, 01/20/17) Vital Signs Date Time Temp Pulse Resp B/P (MAP) Pulse Ox O2 Delivery O2 Flow Rate FiO2 08/01/17 17:43 36.8 70 16 165/85 96 Room Air Laboratory Results 08/01/17 18:02 Red Blood Count 4.15, Mean Corpuscular Volume 93.3, Mean Corpuscular Hemoglobin 31.6, Mean Corpuscular Hemoglobin Concent 33.9, Mean Platelet Volume 9.1, Neutrophils (%) (Auto) 43.8, Lymphocytes (%) (Auto) 44.5, Monocytes (%) (Auto) 8.0, Eosinophils (%) (Auto) 2.8, Basophils (%) (Auto) 0.7, Neutrophils # (Auto) 3.80, Lymphocytes # (Auto) 3.86, Monocytes # (Auto) 0.69, Eosinophils # (Auto) 0.24, Basophils # (Auto) 0.06 08/01/17 18:02 Test 08/01/17 18:02 White Blood Count 8.67 K/uL (4.8-10.8) Red Blood Count 4.15 M/uL (4.2-5.4) Hemoglobin 13.1 g/dL (12.0-16.0) Hematocrit 38.7 % (37-47) Mean Corpuscular Volume 93.3 fL (80-100) Mean Corpuscular Hemoglobin 31.6 pg (25-34) Mean Corpuscular Hemoglobin Concent 33.9 g/dl (32-36) Platelet Count 198 K/uL (130-400) Mean Platelet Volume 9.1 fL (7.4-10.4) Neutrophils (%) (Auto) 43.8 % Lymphocytes (%) (Auto) 44.5 % Monocytes (%) (Auto) 8.0 % Eosinophils (%) (Auto) 2.8 % Basophils (%) (Auto) 0.7 % Neutrophils # (Auto) 3.80 K/uL (1.4-6.5) Lymphocytes # (Auto) 3.86 K/uL (1.2-3.4) Monocytes # (Auto) 0.69 K/uL (0.11-0.59) Eosinophils # (Auto) 0.24 K/uL (0-0.5) Basophils # (Auto) 0.06 K/uL (0-0.2) RDW Standard Deviation 45.6 fL (36.4-46.3) RDW Coefficient of Variation 13.5 % (11.5-14.5) Immature Granulocyte % (Auto) 0.2 % Immature Granulocyte # (Auto) 0.02 K/uL (0.00-0.02) Prothrombin Time 10.3 SECONDS (9.0-12.0) Prothromb Time International Ratio 1.0 (0.9-1.1) Activated Partial Thromboplast Time 23.8 SECONDS (21.0-31.0) Partial Thromboplastin Ratio 0.9 Anion Gap 5.0 mmol/L (3-11) Est Creatinine Clear Calc Drug Dose 30.4 ml/min Estimated GFR () 33.2 Estimated GFR (Non- 28.6 BUN/Creatinine Ratio 23.7 (10-20) Calcium Level 8.9 mg/dl (8.5-10.1) Departure Information Referrals Cal Birmingham PA-C (PCP) Patient Instructions [facility]
--- NOTE | 2017-08-01 20:07 | EMERGENCY ROOM VISIT NOTE ---
History First contact with patient: 17:49 Chief Complaint: FINGER PAIN Stated Complaint: RT HAND, BLACK 2ND DIGIT History of Present Illness The patient is a 82 year old female who presents to the Emergency Room with complaints of discoloration of her right second digit. The patient states that she woke up yesterday morning and noticed that the finger was dark in color. She denies any numbness or pain in the finger. She denies any known trauma to the finger. She denies any history of similar symptoms. The patient is not a smoker. She denies any history of VTE. She denies history of atrial fibrillation. Review of Systems A complete 10 point review of systems was reviewed with the patient with pertinent positives and negatives as per history of present illness. All else were negative. 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 (11) Mass of ovary (12) OVARIAN CYST NEC/NOS (13) Pneumonia Surgical Problems: (1) Appendectomy (2) Cholecystectomy (3) Removal of ovarian cyst (4) Tonsillectomy Family History FH: kidney disease Social History Smoking Status: Never Smoker Alcohol Use: none Drug Use: none Marital Status: Occupation Status: retired Current/Historical Medications Scheduled Albuterol Inhaler (Ventolin Inhaler), 2 PUFFS INH Q4HR PRN Allopurinol (Zyloprim), 100 MG PO DAILY Amlodipine (Norvasc), 5 MG PO QAM Aspirin Enteric Coated (Ecotrin Or Generic *), 81 MG PO DAILY Dexamethasone (Dexamethasone Sodium Phos), 3 DROP OTB 2XWK Ergocalciferol (Vitamin D 80159 Unit), 50,000 UNIT PO MONTHLY Furosemide (Lasix), 20 MG PO DAILY Home O2 Therapy (Oxygen), 2 LITERS NA HS Isosorbide Mononitrate Ext Rel (Imdur Ext Rel), 60 MG PO QAM Lisinopril (Prinivil), 10 MG PO DAILY Magnesium Oxide (Mag-Ox), 400 MG PO DAILY Metoprolol Tartrate (Lopressor) (Lopressor), 12.5 MG PO BID Multivitamin (Multivitamin), 1 TAB PO DAILY Nitroglycerin (Nitrostat), 0.4 MG UT PRN Omeprazole (Prilosec), 40 MG PO QAM Scheduled PRN Ipratropium-Albuterol (Duoneb), 1 TREATMENT INH Q4H PRN for SOB/Wheezing Physical Exam Vital Signs Date Time Temp Pulse Resp B/P (MAP) Pulse Ox O2 Delivery O2 Flow Rate FiO2 08/01/17 20:24 66 18 132/62 97 08/01/17 19:50 66 18 132/62 97 Room Air 08/01/17 17:43 36.8 70 16 165/85 96 Room Air Physical Exam VITALS: Vitals are noted on the nurse's note and reviewed by myself. Vital signs stable. GENERAL: This is an 82-year-old female, in no acute distress, nondiaphoretic, well-developed well-nourished. SKIN: The second finger of the right hand is slightly dusky in color compared to the other fingers. Normal temperature. No tenderness to palpation. Capillary refill within 2 seconds. HEART: Regular rate and rhythm without murmurs gallops or rubs. LUNGS: Clear to auscultation bilaterally without wheezes, rales or rhonchi. NEURO: Patient was alert and oriented to person place and time. Normal sensation to light and sharp touch. Medical Decision & Procedures ER Provider Diagnostic Interpretation: R ART DOP DUP UPPER EXT UNI CLINICAL HISTORY: 82 years-old Female presenting with right first digit dusky. TECHNIQUE: Real-time grayscale and color and spectral Doppler ultrasound imaging of the bilateral carotid arteries was performed. NASCET criteria was used in evaluating this study. COMPARISON: None. FINDINGS: Right: Subclavian artery: Patent. Peak systolic velocity 114 cm/s. Brachial artery: Patent. Peak systolic velocity 215 cm/s. Radial artery: Patent. Peak systolic velocity 78 cm/s. Ulnar artery: Patent. Peak systolic velocity 63 cm/s. Normal peripheral arterial waveforms and color Doppler flow also visualized in the first and second digits in the area of clinical interest. IMPRESSION: No evidence of arterial occlusion in the right upper extremity arteries. Laboratory Results 08/01/17 18:02 Red Blood Count 4.15, Mean Corpuscular Volume 93.3, Mean Corpuscular Hemoglobin 31.6, Mean Corpuscular Hemoglobin Concent 33.9, Mean Platelet Volume 9.1, Neutrophils (%) (Auto) 43.8, Lymphocytes (%) (Auto) 44.5, Monocytes (%) (Auto) 8.0, Eosinophils (%) (Auto) 2.8, Basophils (%) (Auto) 0.7, Neutrophils # (Auto) 3.80, Lymphocytes # (Auto) 3.86, Monocytes # (Auto) 0.69, Eosinophils # (Auto) 0.24, Basophils # (Auto) 0.06 08/01/17 18:02 Test 08/01/17 18:02 White Blood Count 8.67 K/uL (4.8-10.8) Red Blood Count 4.15 M/uL (4.2-5.4) Hemoglobin 13.1 g/dL (12.0-16.0) Hematocrit 38.7 % (37-47) Mean Corpuscular Volume 93.3 fL (80-100) Mean Corpuscular Hemoglobin 31.6 pg (25-34) Mean Corpuscular Hemoglobin Concent 33.9 g/dl (32-36) Platelet Count 198 K/uL (130-400) Mean Platelet Volume 9.1 fL (7.4-10.4) Neutrophils (%) (Auto) 43.8 % Lymphocytes (%) (Auto) 44.5 % Monocytes (%) (Auto) 8.0 % Eosinophils (%) (Auto) 2.8 % Basophils (%) (Auto) 0.7 % Neutrophils # (Auto) 3.80 K/uL (1.4-6.5) Lymphocytes # (Auto) 3.86 K/uL (1.2-3.4) Monocytes # (Auto) 0.69 K/uL (0.11-0.59) Eosinophils # (Auto) 0.24 K/uL (0-0.5) Basophils # (Auto) 0.06 K/uL (0-0.2) RDW Standard Deviation 45.6 fL (36.4-46.3) RDW Coefficient of Variation 13.5 % (11.5-14.5) Immature Granulocyte % (Auto) 0.2 % Immature Granulocyte # (Auto) 0.02 K/uL (0.00-0.02) Prothrombin Time 10.3 SECONDS (9.0-12.0) Prothromb Time International Ratio 1.0 (0.9-1.1) Activated Partial Thromboplast Time 23.8 SECONDS (21.0-31.0) Partial Thromboplastin Ratio 0.9 Anion Gap 5.0 mmol/L (3-11) Est Creatinine Clear Calc Drug Dose 30.4 ml/min Estimated GFR () 33.2 Estimated GFR (Non- 28.6 BUN/Creatinine Ratio 23.7 (10-20) Calcium Level 8.9 mg/dl (8.5-10.1) ECG Rate (beats per minute): 71 Rhythm: normal sinus Findings: no acute ischemic change, no ectopy Medical Decision The patient was evaluated as above. The finger is slightly dusky compared to the other fingers. There is normal capillary refill. There is no pain or numbness of the finger. Labs are unremarkable. No evidence of infection. Arterial ultrasound was performed and does not show any blood clots. The patient is not in atrial fibrillation. She may need further workup for this, however I do feel this can safely be performed as an outpatient. Her symptoms may be secondary to Raynaud syndrome. She was advised to follow-up closely with her primary care provider. She verbalized understanding of my assessment and treatment plan and was discharged home in good condition. The patient was independently evaluated by Dr. Koch, ED attending physician , who agreed with my assessment and treatment plan. Medication Reconcilliation Current Medication List: was personally reviewed by me Blood Pressure Screening Patient's blood pressure: Normal blood pressure Impression Primary Impression: Discoloration of skin of finger Departure Information Dispostion Home / Self-Care Condition GOOD Referrals Cal Birmingham PA-C (PCP) Patient Instructions My [facility] [employer] Additional Instructions Follow-up with your primary care provider within 48 hours for a recheck. He may need more testing as an outpatient. Return here for any worsening symptoms or any pain of the finger.
[2017-08-01 20:24] VITALS: BP 132/62; PULSE 66; O2SAT 97
== END 2017-08-01 20:20 | disposition home or self-care (01) ==
LOC: C.EDB 17:38 → C.EDD 20:20
DX: R23.8 Other skin changes (principal); J45.909 Unspecified asthma, uncomplicated; I25.10 Atherosclerotic heart disease of native coronary artery without angina pectoris; I12.9 Hypertensive chronic kidney disease with stage 1 through stage 4 chronic kidney disease, or unspecified chronic kidney disease; E11.22 Type 2 diabetes mellitus with diabetic chronic kidney disease; N18.9 Chronic kidney disease, unspecified; K21.9 Gastro-esophageal reflux disease without esophagitis; Z87.01 Personal history of pneumonia (recurrent); Z86.718 Personal history of other venous thrombosis and embolism; Z90.49 Acquired absence of other specified parts of digestive tract; Z90.89 Acquired absence of other organs; Z98.890 Other specified postprocedural states; Z79.82 Long term (current) use of aspirin; Z79.899 Other long term (current) drug therapy

== ENCOUNTER → 2017-08-14 | Outpatient (CLI) | payer OTHER, BC ==
[2017-08-14 12:11] LABS: HEMATOCRIT 40.5 % (37-47); MEAN CELL VOLUME 95.7 fL (80-100); MEAN CORPUSCULAR HGB CONC 32.3 g/dl (32-36); MEAN PLATELET VOLUME 9.9 fL (7.4-10.4); PLATELET COUNT 212 K/uL (130-400); RED BLOOD COUNT 4.23 M/uL (4.2-5.4)
[2017-08-14 12:22] LABS: BLOOD UREA NITROGEN 48 mg/dl (7-18); BUN/CREATININE RATIO 24.7 (10-20); CALCIUM 8.8 mg/dl (8.5-10.1); CARBON DIOXIDE 27 mmol/L (21-32); CHLORIDE 106 mmol/L (98-107); CREATININE 1.95 mg/dl (0.60-1.20); GLUCOSE 222 mg/dl (70-99); POTASSIUM 4.5 mmol/L (3.5-5.1); SODIUM 142 mmol/L (136-145)
[2017-08-14 12:23] LABS: PHOSPHORUS 3.2 mg/dl (2.5-4.9)
[2017-08-14 17:39] LABS: URINE APPEARANCE CLEAR (CLEAR); URINE BILIRUBIN NEG (NEG); URINE COLOR YELLOW; URINE EPITHELIAL CELL AUTO >30 /lpf (0-5); URINE NITRITE NEG (NEG); UROBILINOGEN NEG (NEG)
[2017-08-14 17:53] LABS: MANUAL MICROSCOPIC REQUIRED? NO; REVIEW REQ? NO
[2017-08-14 17:57] LABS: URINE PROTIEN/CREAT RATIO 0.1 (0-0.2); URINE TOTAL PROTEIN 8.1 mg/dl (0-11.9)
== END | disposition home or self-care (01) ==
LOC: C.LABBFT 10:25
PROVIDERS: ATTEND Internal Medicine Nephrology
DX: I10 Essential (primary) hypertension (principal); N18.3 Chronic kidney disease, stage 3 (moderate); E55.9 Vitamin D deficiency, unspecified

== ENCOUNTER → 2017-12-11 | Outpatient (CLI) | payer OTHER, BC ==
[~2017-12-11] MED LIST changes: -ALLO100T PO; -AMLO-110 PO; -MAGN400T5 PO; -OMEP40CA41 PO; +RANI150T3 PO
[2017-12-11 16:33] LABS: HEMATOCRIT 40.9 % (37-47); MEAN CELL VOLUME 95.8 fL (80-100); MEAN CORPUSCULAR HEMOGLOBIN 30.4 pg (25-34); MEAN CORPUSCULAR HGB CONC 31.8 g/dl (32-36); MEAN PLATELET VOLUME 9.8 fL (7.4-10.4); PLATELET COUNT 256 K/uL (130-400); RED CELL DISTRIBUTION WIDTH CV 13.5 % (11.5-14.5); RED CELL DISTRIBUTION WIDTH SD 46.3 fL (36.4-46.3); WHITE BLOOD COUNT 10.09 K/uL (4.8-10.8)
[2017-12-11 16:50] LABS: ALBUMIN 3.5 gm/dl (3.4-5.0); BLOOD UREA NITROGEN 52 mg/dl (7-18); CALCIUM 9.4 mg/dl (8.5-10.1); CARBON DIOXIDE 29 mmol/L (21-32); CREATININE 1.78 mg/dl (0.60-1.20); GLUCOSE 169 mg/dl (70-99); PHOSPHORUS 3.2 mg/dl (2.5-4.9); SODIUM 143 mmol/L (136-145)
== END | disposition home or self-care (01) ==
LOC: C.LABBFT 12:27
PROVIDERS: ATTEND Internal Medicine Nephrology
DX: I10 Essential (primary) hypertension (principal); R60.9 Edema, unspecified; E55.9 Vitamin D deficiency, unspecified; N18.3 Chronic kidney disease, stage 3 (moderate)

== ENCOUNTER → 2018-04-12 | Outpatient (CLI) | payer OTHER, BC ==
[~2018-04-12] MED LIST changes: +IPRA-64 INH; -IPRASOL4 INH
[2018-04-12 12:29] LABS: HEMATOCRIT 39.4 % (37-47); MEAN CELL VOLUME 95.2 fL (80-100); MEAN CORPUSCULAR HEMOGLOBIN 31.4 pg (25-34); MEAN PLATELET VOLUME 9.7 fL (7.4-10.4); PLATELET COUNT 233 K/uL (130-400); RED CELL DISTRIBUTION WIDTH CV 13.1 % (11.5-14.5); RED CELL DISTRIBUTION WIDTH SD 45.5 fL (36.4-46.3); WHITE BLOOD COUNT 8.36 K/uL (4.8-10.8)
[2018-04-12 12:40] LABS: ALBUMIN 3.4 gm/dl (3.4-5.0); BLOOD UREA NITROGEN 51 mg/dl (7-18); CALCIUM 9.1 mg/dl (8.5-10.1); CARBON DIOXIDE 29 mmol/L (21-32); GLUCOSE 197 mg/dl (70-99); PHOSPHORUS 3.7 mg/dl (2.5-4.9); POTASSIUM 5.6 mmol/L (3.5-5.1); SODIUM 141 mmol/L (136-145)
== END | disposition home or self-care (01) ==
LOC: C.LABBFT 10:23
PROVIDERS: ATTEND Internal Medicine Nephrology
DX: I12.9 Hypertensive chronic kidney disease with stage 1 through stage 4 chronic kidney disease, or unspecified chronic kidney disease (principal); R60.9 Edema, unspecified; N18.3 Chronic kidney disease, stage 3 (moderate); E55.9 Vitamin D deficiency, unspecified

== ENCOUNTER → 2018-04-18 | Outpatient (CLI) | payer OTHER, BC ==
[2018-04-18 13:00] LABS: ALBUMIN 3.5 gm/dl (3.4-5.0); BLOOD UREA NITROGEN 48 mg/dl (7-18); CARBON DIOXIDE 27 mmol/L (21-32); CREATININE 2.03 mg/dl (0.60-1.20); GLUCOSE 177 mg/dl (70-99); PHOSPHORUS 3.2 mg/dl (2.5-4.9); POTASSIUM 4.6 mmol/L (3.5-5.1); SODIUM 143 mmol/L (136-145)
== END | disposition home or self-care (01) ==
LOC: C.LABBFT 11:07
PROVIDERS: ATTEND Internal Medicine Nephrology
DX: N18.3 Chronic kidney disease, stage 3 (moderate) (principal)

== ENCOUNTER 2019-07-16 16:23 | Inpatient (IN) ==
[2019-07-16 17:08] LABS: Basophils # (auto) 0.02 K/uL (0-0.2); Basophils % (auto) 0.2 %; Eosinophils # (auto) 0.13 K/uL (0-0.5); Eosinophils % (auto) 1.4 %; Hematocrit (blood only) 37.9 % (37-47); Immature Granulocytes # (auto) 0.02 K/uL (0.00-0.02); Immature Granulocytes % (auto) 0.2 %; Lymphocytes # (auto) 2.89 K/uL (1.2-3.4); Lymphocytes % (auto) 31.4 %; Mean Corpuscular Hemoglobin 31.2 pg (25-34); Mean Corpuscular Hgb Conc 34.3 g/dL (32-36); Mean Corpuscular Volume 90.9 fL (80-100); Monocytes % (auto) 6.5 %; Neutrophils # (auto) 5.55 K/uL (1.4-6.5); Neutrophils % (auto) 60.3 %; Platelet Count 247 K/uL (130-400); RDW Coefficient of Variation 13.2 % (11.5-14.5); RDW Standard Deviation 43.7 fL (36.4-46.3); Red Blood Count 4.17 M/uL (4.2-5.4); White Blood Count 9.21 K/uL (4.8-10.8)
[2019-07-16 17:25] LABS: Alanine Aminotransferase 19 U/L (12-78); Albumin Level 3.4 gm/dl (3.4-5.0); Aspartate Aminotransferase 19 U/L (15-37); BUN Creatinine Ratio 19.3 (10-20); Blood Urea Nitrogen 44 mg/dl (7-18); Calcium 9.5 mg/dl (8.5-10.1); Carbon Dioxide 26 mmol/L (21-32); Chloride 106 mmol/L (98-107); Est GFR (African American) 22.1; Est GFR (Non-African American) 19.1; Glucose 191 mg/dl (70-99); Magnesium 1.9 mg/dl (1.8-2.4); Potassium 4.4 mmol/L (3.5-5.1); Sodium 139 mmol/L (136-145)
[2019-07-16 17:26] LABS: Partial Thromboplastin Ratio 0.9; Partial Thromboplastin Time 23.9 Seconds (21.0-31.0); Prothrombin Time 10.2 Seconds (9.0-12.0)
[2019-07-16 17:28] LABS: Albumin Globulin Ratio 0.8 (0.9-2); Alkaline Phosphatase 133 U/L (45-117); Bilirubin,Total 0.5 mg/dl (0.2-1); Globulin 4.3 gm/dl (2.5-4.0); Total Protein 7.7 gm/dl (6.4-8.2)
--- NOTE | 2019-07-16 18:48 | History & Physical Report ---
Date of Service July 16, 2019 Assessment & Plan (1) CVA (cerebral vascular accident): Admit telemetry CT head in ED showed subacute infarct Will follow up with MR brain, MRA brain, carotid doppler, LE US ASA suppository - npo until seen by speech due to dysphagia Consult neurology Trop, echo with bubble study CBC, prp am PT/OT (2) Hypertension: hold antihypertensives for permissive hypertension (3) GERD (gastroesophageal reflux disease): change po pantoprazole to famotine IV bid until no longer npo (4) Chronic kidney disease, stage 4 (severe): baseline creat around 2.5 avoid nephrotoxins where possible (5) Osteoarthritis: Patient lumbar MRI 07/14 showing moderate multilevel degenerative disc disease and facet arthrosis. Mild multilevel central canal and neural foraminal stenosis. (6) Chronic obstructive pulmonary disease: wears 2L NC at night does not appear to be on inhalers (7) DVT prophylaxis: heparin subq bid SCDs Code: DNR History of Present Illness Ms Olvera presents today for weakness, slurred speech and facial droop. She initially presented to the ED on 07/14 due to fall following sudden weakness in her legs. She was discharged to [facility] for rehab from the ED. Per patient's son who is bedside, he noticed some slurred speech at that time in the ED which appeared to be worsening yesterday along with some facial droop. She noticed during therapy at [facility] yesterday that she was having a difficult time holding herself up with the walker with the right arm. Today her son felt she should come back to the emergency department for worsening symptoms. She reports some baseline sob, lower back pain, and dizziness at times. She denies, chest pain, palpitations, nausea, vomiting, changes in bowels, dysuria or frequency. Ms. Olvera has been having ongoing lower back pain. She denies any loss of bowel or bladder or saddle anesthesia. Pmhx: [place], CAD, htn, GI bleed due to ulcer, hyperlipidemia Social: lives alone, no alcohol, never smoker, has two children Family: stroke Primary Care Provider: Elbert Birmingham PA-C Allergies Allergy/AdvReac Type Severity Reaction Status Date / Time adhesive tape Allergy Severe BLISTER Verified 07/16/19 18:53 SKIN doxycycline Allergy Severe trouble Verified 07/16/19 18:53 breathing Iodinated Contrast Media Allergy Severe ON PT LIST Verified 07/16/19 18:53 [Iodinated Contrast- Oral and IV Dye] cortisone Allergy Intermediate SWELLING, Verified 07/16/19 18:53 CHILLS, SHAKINESS levofloxacin Allergy Intermediate SHORTNESS Verified 07/16/19 18:53 OF BREATH cephalexin Allergy Mild RASH Verified 07/16/19 18:53 latex Allergy Mild Redness of Verified 07/16/19 18:53 Skin acetaminophen Allergy Unknown UNKNOWN Verified 07/16/19 18:53 Aminoglycosides Allergy Unknown ON PT LIST Verified 07/16/19 18:53 atorvastatin Allergy Unknown ON PT LIST Verified 07/16/19 18:53 bacitracin Allergy Unknown ON PT LIST Verified 07/16/19 18:53 benzonatate Allergy Unknown ON PT LIST Verified 07/16/19 18:53 febuxostat Allergy Unknown ON PT LIST Verified 07/16/19 18:53 indomethacin Allergy Unknown ON PT LIST Verified 07/16/19 18:53 methylprednisolone Allergy Unknown ON PT LIST Verified 07/16/19 18:53 mivacurium Allergy Unknown Unknown Verified 07/16/19 18:53 neomycin Allergy Unknown ON PT LIST Verified 07/16/19 18:53 oxycodone Allergy Unknown ON PT LIST Verified 07/16/19 18:53 polymyxin B Allergy Unknown ON PT LIST Verified 07/16/19 18:53 prednisone Allergy Unknown ON PT LIST Verified 07/16/19 18:53 rosuvastatin Allergy Unknown ON PT LIST Verified 07/16/19 18:53 Dzkbffb-Edi-Igl Reductase Allergy Unknown ON PT LIST Verified 07/16/19 18:53 Inhibitor azithromycin AdvReac Intermediate Flushed Verified 07/16/19 18:53 Skin diphenhydramine AdvReac Intermediate Short of Verified 07/16/19 18:53 [From Benadryl] Breath, Puffiness, Redness Home Medications Home Medications Medication Instructions Recorded Confirmed Type amlodipine 2.5 mg PO QAM 01/29/19 07/16/19 History aspirin 81 mg PO QAM 01/29/19 07/16/19 History isosorbide mononitrate 60 mg PO QAM 01/29/19 07/16/19 History nitroglycerin [Nitrostat] 0.4 mg SUBLINGUAL DIRECTED PRN 01/29/19 07/16/19 History lisinopril 10 mg tablet 10 mg PO QAM #30 tab 05/16/19 07/16/19 Rx metoprolol tartrate 25 mg tablet 12.5 mg PO BID #60 tab 05/16/19 07/16/19 Rx pantoprazole 40 mg tablet,delayed 40 mg PO QAM #90 tab 07/01/19 07/16/19 Rx release [id number]-wcp-CX-lycopen-lutein 1 tab PO DAILY 07/14/19 07/16/19 History [Centrum Silver] acetaminophen [Tylenol Extra 500 mg PO Q4 PRN 07/16/19 07/16/19 History Strength] bisacodyl 10 mg [place] DAILY PRN 07/16/19 07/16/19 History docusate sodium 100 mg PO BID 07/16/19 07/16/19 History duloxetine [Cymbalta] 20 mg PO DAILY 07/16/19 07/16/19 History polyethylene glycol 3350 [Miralax] 17 g PO DAILYBL PRN 07/16/19 07/16/19 History sennosides-docusate sodium [Senna 1 tab-cap PO DAILYBL PRN 07/16/19 07/16/19 History with Docusate Sodium] Past Med/Surg History Social History Preferred Language: Tajik Communication Ability: Effective 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 Beliefs That Will Affect Care: None marital status: / Current Living Situation: Alone Current Living Situation Comment: family checks in on pt daily current occupational status: retired Feels Safe at Home: Yes Smoking Status: Never smoker Second Hand Exposure: No ; Hx Alcohol Use: No Hx Substance Use: No Review of Systems Review of Systems: All systems reviewed & are unremarkable except as noted in HPI & below Physical Exam Physical Exam: General: no distress Eyes: normal inspection, PERLL Respiratory: chest non tender, clear to auscultation, normal breath sounds, no respiratory distress, no accessory muscle use Cardiac: regular rate and rhythm, no rub or gallop, no murmur, no edema, no jvd GI/: active bowel sounds, no abd pain or tenderness, soft, non distended Extremities: normal range of motion, lower extremity weakness Neuro/Psych: alert and oriented x 3, normal mood and affect, dysarthric, right facial droop, right arm drift and weakness, unable to lift either leg off of bed Skin: normal color, dry, small area of erythema right lang Results & Data Vital Signs (Past 12 Hours) Vital Signs Temp Pulse Pulse Resp BP BP Pulse Ox 07/16/19 18:25 64 20 179/59 H 97 07/16/19 16:26 36.2 C L 70 20 178/111 H 94 Code Status & VTE Plan Code Status DNR Supervising Physician Co-Signing Physician Notes I have seen and examined pt with RAJAT Brian and I agree with the assessment and plan. PG Care Time/CCT Total # of Minutes Spent Total Time Spent with Patient: Total time spent is greater than 50% in coordination of care (as documented) at patient's floor/unit and/or counseling patient:
[2019-07-16] MEDS ORDERED: NITROGLYCERIN SL 0.4 MG/TAB TAB SL PRN (21:20)
[2019-07-16] MEDS ORDERED: POLYETHYLENE (MIRALAX) 17 GM PACK PO PRN (21:20)
[2019-07-16] MEDS ORDERED: ERGOCALCIFEROL 50,000 UNITS CAP PO SCH (21:20)
[2019-07-16] MEDS ORDERED: PHARMACIST DISCHARGE MED REC CONSULT PRN (21:20)
[2019-07-16] MEDS ORDERED: BISACODYL 10 MG SUPP PR PRN (21:20)
[2019-07-16] MEDS ORDERED: ASPIRIN 300 MG SUPP PR ONE (21:20)
[2019-07-16] MEDS ORDERED: ONDANSETRON INJ 2 MG/ML 2 ML VIAL IV PRN (21:20)
[2019-07-16] MEDS ORDERED: DOCUSATE SODIUM/SENNA 50/8.6MG TAB PO PRN (21:20)
--- NOTE | 2019-07-16 21:54 | Emergency Department Note ---
Entered by Jennifer Abel acting as a scribe for History of Present Illness General Chief complaint: Stroke/CVA Symptoms Stated complaint: STROKE LIKE SX History of Present Illness Provider complaint: stroke like symptoms Onset (ago): hour(s) 7 Pain Consistency: + other (episode) Maximum Pain Intensity: 10 Quality: + other (stroke like symptoms) Associated symptoms: + other (woke up with right sided numbness this morning which she believe started during the night, severe back pain, fell 2 days ago secondary to weakness in legs, slurred speech, more emotional than usual) Treatments prior to arrival: none The patient is an 84 year old female who presents to the ED with complaints of an episode of stroke-like symptoms that started 7 hours ago. The patient states that she was scheduled for a CT today, but woke up with right-sided numbness. The patient states that she believes these symptoms started during the night. The patient states that she also has severe back pain. Per daughter, the patient fell 2 days ago secondary to weakness in her legs. The patient states that she came to the ED following this episode and was discharged home afterwards. Per daughter, the patients speech is more slurred and she is more emotional than usual. The patient denies receiving any treatments prior to arrival. Home Medications Home Medications Medication Instructions Recorded Confirmed Type amlodipine 2.5 mg PO QAM 01/29/19 07/16/19 History aspirin 81 mg PO QAM 01/29/19 07/16/19 History isosorbide mononitrate 60 mg PO QAM 01/29/19 07/16/19 History nitroglycerin [Nitrostat] 0.4 mg SUBLINGUAL DIRECTED PRN 01/29/19 07/16/19 History lisinopril 10 mg tablet 10 mg PO QAM #30 tab 05/16/19 07/16/19 Rx metoprolol tartrate 25 mg tablet 12.5 mg PO BID #60 tab 05/16/19 07/16/19 Rx pantoprazole 40 mg tablet,delayed 40 mg PO QAM #90 tab 07/01/19 07/16/19 Rx release igcdfyot-vei-LD-lycopen-lutein 1 tab PO DAILY 07/14/19 07/16/19 History [Centrum Silver] acetaminophen [Tylenol Extra 500 mg PO Q4 PRN 07/16/19 07/16/19 History Strength] bisacodyl 10 mg AL DAILY PRN 07/16/19 07/16/19 History docusate sodium 100 mg PO BID 07/16/19 07/16/19 History duloxetine [Cymbalta] 20 mg PO DAILY 07/16/19 07/16/19 History polyethylene glycol 3350 [Miralax] 17 g PO DAILYBL PRN 07/16/19 07/16/19 History sennosides-docusate sodium [Senna 1 tab-cap PO DAILYBL PRN 07/16/19 07/16/19 History with Docusate Sodium] Allergies Allergy/AdvReac Type Severity Reaction Status Date / Time adhesive tape Allergy Severe BLISTER Verified 07/16/19 18:53 SKIN doxycycline Allergy Severe trouble Verified 07/16/19 18:53 breathing Iodinated Contrast Media Allergy Severe ON PT LIST Verified 07/16/19 18:53 [Iodinated Contrast- Oral and IV Dye] cortisone Allergy Intermediate SWELLING, Verified 07/16/19 18:53 CHILLS, SHAKINESS levofloxacin Allergy Intermediate SHORTNESS Verified 07/16/19 18:53 OF BREATH cephalexin Allergy Mild RASH Verified 07/16/19 18:53 latex Allergy Mild Redness of Verified 07/16/19 18:53 Skin acetaminophen Allergy Unknown UNKNOWN Verified 07/16/19 18:53 Aminoglycosides Allergy Unknown ON PT LIST Verified 07/16/19 18:53 atorvastatin Allergy Unknown ON PT LIST Verified 07/16/19 18:53 bacitracin Allergy Unknown ON PT LIST Verified 07/16/19 18:53 benzonatate Allergy Unknown ON PT LIST Verified 07/16/19 18:53 febuxostat Allergy Unknown ON PT LIST Verified 07/16/19 18:53 indomethacin Allergy Unknown ON PT LIST Verified 07/16/19 18:53 methylprednisolone Allergy Unknown ON PT LIST Verified 07/16/19 18:53 mivacurium Allergy Unknown Unknown Verified 07/16/19 18:53 neomycin Allergy Unknown ON PT LIST Verified 07/16/19 18:53 oxycodone Allergy Unknown ON PT LIST Verified 07/16/19 18:53 polymyxin B Allergy Unknown ON PT LIST Verified 07/16/19 18:53 prednisone Allergy Unknown ON PT LIST Verified 07/16/19 18:53 rosuvastatin Allergy Unknown ON PT LIST Verified 07/16/19 18:53 Huyrian-Mru-Mfo Reductase Allergy Unknown ON PT LIST Verified 07/16/19 18:53 Inhibitor azithromycin AdvReac Intermediate Flushed Verified 07/16/19 18:53 Skin diphenhydramine AdvReac Intermediate Short of Verified 07/16/19 18:53 [From Benadryl] Breath, Puffiness, Redness Past Med/Surg History Social History Preferred Language: Wolof Communication Ability: Effective Candlemaker Required: No Beliefs That Will Affect Care: None marital status: / Current Living Situation: Alone Current Living Situation Comment: family checks in on pt daily current occupational status: retired Feels Safe at Home: Yes Smoking Status: Never smoker Second Hand Exposure: No ; Hx Alcohol Use: No Hx Substance Use: No Review of Systems See HPI for pertinent positives & negatives. and A total of 10 systems reviewed and were otherwise negative Physical Exam Vital Signs Vital Signs - 24 hr 07/16/19 16:26 07/16/19 17:14 07/16/19 18:00 Temperature 36.2 C L Temperature Source Oral Sepsis Recent Fever Within 48 Hours No Sepsis New/Unexplained Change in Mental Status No Sepsis Action Taken by Nursing No Action Required Pulse Rate 70 65 61 Pulse Rate [Apical] Pulse Rhythm Regular Pulse Rhythm [Apical] Pulse Strength Normal Respiratory Rate 20 14 20 Respiratory Effort / Characteristics Non-Labored Spontaneous Respiratory Depth Normal Respiratory Pattern Regular Blood Pressure 178/111 H Blood Pressure [Right Radial Artery] Blood Pressure Mean 133 Blood Pressure Mean [Right Radial Artery] Blood Pressure Position Sitting Pulse Oximetry 94 Oxygen Delivery Method Room Air 07/16/19 18:24 07/16/19 18:25 Temperature Temperature Source Sepsis Recent Fever Within 48 Hours Sepsis New/Unexplained Change in Mental Status Sepsis Action Taken by Nursing Pulse Rate 62 Pulse Rate [Apical] 64 Pulse Rhythm Pulse Rhythm [Apical] Regular Pulse Strength Respiratory Rate 20 20 Respiratory Effort / Characteristics Non-Labored Spontaneous Respiratory Depth Normal Respiratory Pattern Regular Blood Pressure 179/59 H Blood Pressure [Right Radial Artery] 179/59 H Blood Pressure Mean 99 Blood Pressure Mean [Right Radial Artery] 99 Blood Pressure Position Pulse Oximetry 97 Oxygen Delivery Method Room Air GENERAL: Awake, alert, well-appearing, tearful HENT: Normocephalic, atraumatic. EYES: Normal conjunctiva. Sclera non-icteric. PERRL. NECK: Supple. No nuchal rigidity. RESPIRATORY: Clear to auscultation. No wheezes. Normal respiratory effort. CARDIAC: Normal rate. Irregular rhythm. Extremities warm and well perfused. GI: Soft, non-distended. No tenderness to palpation. LOWER EXTREMITIES: Calves are equal size bilaterally and non-tender. No edema NEURO: No slurred speech but speech is somewhat slow, no aphasia. Perhaps a mild facial droop. No significant pronator drift. 4/5 right hand drawer in hand compared to 5/5 on left. Difficulty with straight leg raise bilaterally secondary to back pain. SKIN: Warm and dry. No rash or jaundice noted. Course 163: Past medical records reviewed. The patient was evaluated in room A12A. A complete history and physical exam was performed. 1738: I discussed the patient's case with Dr. Oates [facility] Hospitalist. He will evaluate the patient for further management. Consultations Consultation #1: I discussed the patient's case with Dr. Oates [facility] Hospitalist. He will evaluate the patient for further management. Time: 17:38 Medical Decision Making Differential Diagnosis Differential diagnosis: Etiologies such as muscular strain, fracture, metastatic disease, disc hernia tion, sciatica, epidural abscess, vertebral osteomyelitis, discitis, spinal epidural hematoma, cord compression, cauda equina/conus medullaris syndrome, aortic disease, infection, shingles, renal colic, gastrointestinal, acute exacerbation of chronic back pain, as well as others were entertained. Medical Records Attestation: I reviewed the patient's medical records. Home Medications Current Medication List: was personally reviewed by me Laboratory Data Attestation: I reviewed the patient's lab results. Result diagrams: 07/16/19 16:54 07/16/19 16:54 Lab Results 07/16/19 07/16/19 07/16/19 Range/Units 16:53 16:54 16:54 WBC 9.21 (4.8-10.8) K/uL RBC 4.17 L (4.2-5.4) M/uL Hgb 13.0 (12.0-16.0) g/dL Hct 37.9 (37-47) % MCV 90.9 (80-100) fL MCH 31.2 (25-34) pg MCHC 34.3 (32-36) g/dL RDW Std Deviation 43.7 (36.4-46.3) fL RDW Coeff of Ramiro 13.2 (11.5-14.5) % Plt Count 247 (130-400) K/uL MPV 9.0 (7.4-10.4) fL Immature Gran % (Auto) 0.2 % Neut % (Auto) 60.3 % Lymph % (Auto) 31.4 % [facility] % (Auto) 6.5 % Eos % (Auto) 1.4 % Baso % (Auto) 0.2 % Immature Gran # (Auto) 0.02 (0.00-0.02) K/uL Neut # (Auto) 5.55 (1.4-6.5) K/uL Lymph # (Auto) 2.89 (1.2-3.4) K/uL [facility] # (Auto) 0.60 H (0.11-0.59) K/uL Eos # (Auto) 0.13 (0-0.5) K/uL Baso # (Auto) 0.02 (0-0.2) K/uL PT 10.2 (9.0-12.0) Seconds INR 1.0 (0.9-1.1) APTT 23.9 (21.0-31.0) Seconds PTT Ratio 0.9 Sodium (136-145) mmol/L Potassium (3.5-5.1) mmol/L Chloride (98-107) mmol/L Carbon Dioxide (21-32) mmol/L Anion Gap (3-11) BUN (7-18) mg/dl Creatinine (0.6-1.2) mg/dl Est Cr Clr Drug Dosing Est GFR ( Amer) Est GFR (Non-Af Amer) BUN/Creatinine Ratio (10-20) Glucose (70-99) mg/dl POC Glucose 194 H (70-99) Calcium (8.5-10.1) mg/dl Magnesium (1.8-2.4) mg/dl Total Bilirubin (0.2-1) mg/dl AST (15-37) U/L ALT (12-78) U/L Alkaline Phosphatase (45-117) U/L Total Protein (6.4-8.2) gm/dl Albumin (3.4-5.0) gm/dl Globulin (2.5-4.0) gm/dl Albumin/Globulin Ratio (0.9-2) 07/16/19 Range/Units 16:54 WBC (4.8-10.8) K/uL RBC (4.2-5.4) M/uL Hgb (12.0-16.0) g/dL Hct (37-47) % MCV (80-100) fL MCH (25-34) pg MCHC (32-36) g/dL RDW Std Deviation (36.4-46.3) fL RDW Coeff of Ramiro (11.5-14.5) % Plt Count (130-400) K/uL MPV (7.4-10.4) fL Immature Gran % (Auto) % Neut % (Auto) % Lymph % (Auto) % [facility] % (Auto) % Eos % (Auto) % Baso % (Auto) % Immature Gran # (Auto) (0.00-0.02) K/uL Neut # (Auto) (1.4-6.5) K/uL Lymph # (Auto) (1.2-3.4) K/uL [facility] # (Auto) (0.11-0.59) K/uL Eos # (Auto) (0-0.5) K/uL Baso # (Auto) (0-0.2) K/uL PT (9.0-12.0) Seconds INR (0.9-1.1) APTT (21.0-31.0) Seconds PTT Ratio Sodium 139 (136-145) mmol/L Potassium 4.4 (3.5-5.1) mmol/L Chloride 106 (98-107) mmol/L Carbon Dioxide 26 (21-32) mmol/L Anion Gap 7.0 (3-11) BUN 44 H (7-18) mg/dl Creatinine 2.27 H (0.6-1.2) mg/dl Est Cr Clr Drug Dosing Not Reportable Est GFR ( Amer) 22.1 Est GFR (Non-Af Amer) 19.1 BUN/Creatinine Ratio 19.3 (10-20) Glucose 191 H (70-99) mg/dl POC Glucose (70-99) Calcium 9.5 (8.5-10.1) mg/dl Magnesium 1.9 (1.8-2.4) mg/dl Total Bilirubin 0.5 (0.2-1) mg/dl AST 19 (15-37) U/L ALT 19 (12-78) U/L Alkaline Phosphatase 133 H (45-117) U/L Total Protein 7.7 (6.4-8.2) gm/dl Albumin 3.4 (3.4-5.0) gm/dl Globulin 4.3 H (2.5-4.0) gm/dl Albumin/Globulin Ratio 0.8 L (0.9-2) ECG Data Attestation: I personally reviewed and interpreted this ECG as follows: Indication: back/shoulder pain Rate (beats per minute): 63 Rhythm: sinus rhythm ECG Intervals/blocks: First degree AV block ECG ST segments: Normal ST segments ECG Findings: Other (No ischemic changes) Comparison ECG Date: from (07/14/2019) Change: the following changes noted (more ectopy) Blood Pressure Blood Pressure Findings: Elevated blood pressure Blood Pressure Disposition: further management by hospitalist [facility] Narrative Patient is a 84-year-old female with a history of COPD, hyperlipidemia, CHF, GERD, lumbar pain presenting from [facility] today after an outpatient CT showed concerning findings for possible subacute stroke. The patient developed o vernight right-sided weakness per the patient. Noted by staff at 9am. Had some worsening slurring and worsening with the right upper extremity although better than in earlier in the day. Debilitating lower extremity secondary to back issues so hard to evaluate here. Does have some objective decrease in strength in right hand drawer in hand. According to family members things were worse earlier in the day. Outside of any window for TPA at this point. Given her chronic kidney disease no indication for CT angiograms. Lower suspicion this represents acute LVO. Given her multiple comorbidities and chronic kidney disease I doubt should be an acute thrombectomy candidate even if I were to believe this. Basic labs and EKG were obtained. Discussed with the hospitalist for admission for concerns for stroke. Impression & Plan Stroke, Acute right-sided weakness Discharge Plan Visit Data *Final* Discharge Date/Time: 07/16/19 21:08 Chief Complaint: Stroke/CVA Symptoms Stated Complaint: STROKE LIKE SX ED Provider: Jacek Minor Discharge Problem: Stroke, Acute right-sided weakness Patient Disposition: Admitted As Inpatient Discharge Instructions Interventions: ED Discharge Assessment Last Done: 07/16/19 21:08 Discharge Problem: Stroke Qualifiers: CVA mechanism: unspecified Qualified Code(s): I63.9 - Cerebral infarction, unspecified The scribe's documentation has been prepared under my direction and personally reviewed by me in its entirety. I confirm that the note above accurately reflects all work, treatment, procedures, and medical decision making performed by me.
[2019-07-16] MEDS: METOPROLOL TARTRATE 25 MG TAB PO SCH (23:11)
[2019-07-16] MEDS: SODIUM CHLORIDE 0.9% 1000ML 1,000 ML IV SCH (23:11)
[2019-07-16] MEDS: FAMOTIDINE 20 MG in SYRINGE 3 ML IV SCH (23:12)
[2019-07-16] MEDS: DOCUSATE SODIUM 100 MG CAP PO SCH (23:12)
[2019-07-16] MEDS: HEPARIN SOD 5,000 UNIT/0.5 ML VIAL SQ SCH (23:12)
[2019-07-16] MEDS ORDERED: ASPIRIN 81 MG ECTAB PO STA (23:43)
[2019-07-17 00:53] LABS: Appearance Urine Cloudy (Clear); Bilirubin Urine Negative (Negative); Blood Urine Negative (Negative); Color Urine Yellow; Epithelial Cell Urine Auto >30 /lpf (0-5); Glucose Urine UA Negative (Negative); Ketones Urine Negative (Negative); Leukocyte Esterase Urine 1+ (Negative); Nitrite Urine Negative (Negative); Protein Urine Negative (Negative); Specific Gravity Urine 1.014 (1.000-1.030); Urobilinogen Urine Negative (Negative); pH Urine 5.5 (4.5-7.5)
[2019-07-17 02:29] LABS: RBC Urine Automated 0-4 /hpf (0-4)
[2019-07-17 02:31] LABS: Bacteria Urine Automated 1+ (Negative)
[2019-07-17] MEDS ORDERED: CLOPIDOGREL BISULFATE 75 MG TAB PO ONE (04:12)
[2019-07-17 06:11] LABS: Estimated Average Glucose 169 mg/dl; Hemoglobin A1C 7.5 % (4.5-5.6)
--- NOTE | 2019-07-17 06:32 | Ultrasound Report ---
BILATERAL LOWER EXTREMITY VENOUS DOPPLER HISTORY: Acute pain and swelling of the lower extremities rule out dvt COMPARISON STUDY: None. FINDINGS: Limited exam secondary to patient unable to tolerate compression due to lower extremity nimo n and tenderness. Limited evaluation of the calf vessels. There is normal flow and augmentation withi n the bilateral lower extremity deep venous systems. IMPRESSION: No DVT within the right or left lower extremity. Electronically signed by: Micky Gooden M.D. 07/17/2019 6:31 AM
--- NOTE | 2019-07-17 06:35 | Magnetic Resonance Report ---
MRA OF THE INTRACRANIAL CIRCULATION WITHOUT CONTRAST CLINICAL HISTORY: Cerebrovascular accident. COMPARISON STUDY: CT of the head July 16, 2019. TECHNIQUE: Utilizing a 1.5 Nicolasa magnet and 3-D [id number] technique, unenhanced MRA of the intra cranial circulation was obtained. FINDINGS: The bilateral M1, M2, A1 and A2 segments are patent. The intracranial portion of left verte bral artery is patent. There are severe multifocal stenoses of the right vertebral artery as well as severe multifocal stenoses within the left posterior cerebral artery. There are moderate multifocal s tenoses within the right posterior cerebral artery. No abrupt vessel cut off is identified. There is no intracranial aneurysm. There is no evidence for dissection. IMPRESSION: 1. 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 2. No abrupt vessel cutoff. Electronically signed by: Mahad Ribeiro M.D. 07/17/2019 6:34 AM
--- NOTE | 2019-07-17 06:53 | Magnetic Resonance Report ---
MRI OF THE BRAIN WITHOUT CONTRAST CLINICAL HISTORY: Acute stroke. COMPARISON STUDY: 01/21/2011 FINDINGS: Sagittal T1, axial diffusion, proton density and T2 weighted axial, coronal FLAIR, and axial T1-weigh rae images were acquired. No intra or extra-axial mass lesions are visualized There is a 16 mm focus of restricted water diffusion within the left central raphael. The findings are i ndicative of acute/subacute infarct. There is no evidence of ventricular dilatation. Proton density T2-weighted and FLAIR images reveal scattered foci of increased T2 signal within the w gopi matter, likely on a small vessel basis. There is also a focus of increased T2 signal within the left central raphael consistent with the above-described infarct. There are no abnormal flow voids. There are foci of increased T2 signal within the mastoids consistent with an inflammatory etiology IMPRESSION: 1. Acute/subacute left central pontine infarct measuring approximately 16 mm. Electronically signed by: Nate Ribeiro M.D. 07/17/2019 6:52 AM
--- NOTE | 2019-07-17 06:59 | Ultrasound Report ---
ULTRASOUND OF THE CAROTID ARTERIES CLINICAL HISTORY: Acute stroke COMPARISON STUDY: None. TECHNIQUE: Real-time, grayscale, and color Doppler sonography of the carotid arteries was performed. Imaging reviewed in the transverse and longitudinal planes. NASCET criteria was utilized for stenosis calcification. FINDINGS: There is mild to moderate atherosclerotic plaque present . The peak systolic velocity within the right internal carotid artery is 81 cm/sec. The systolic velocity ratio of right internal to common carotid artery is 0.8. The peak systolic velocity within the left internal carotid artery is 109 cm/sec. The systolic velocity ratio left internal to common carotid artery is 1.0. Antegrade flow is seen in the vertebral arteries. The external carotid arteries are patent. IMPRESSION: No evidence of hemodynamically significant carotid stenosis. Electronically signed by: Nate Ribeiro M.D. 07/17/2019 6:58 AM
[2019-07-17 07:58] LABS: Basophils # (auto) 0.03 K/uL (0-0.2); Basophils % (auto) 0.4 %; Eosinophils # (auto) 0.31 K/uL (0-0.5); Eosinophils % (auto) 3.7 %; Hematocrit (blood only) 33.8 % (37-47); Hemoglobin 11.6 g/dL (12.0-16.0); Immature Granulocytes # (auto) 0.02 K/uL (0.00-0.02); Immature Granulocytes % (auto) 0.2 %; Lymphocytes # (auto) 3.17 K/uL (1.2-3.4); Lymphocytes % (auto) 37.5 %; Mean Corpuscular Hgb Conc 34.3 g/dL (32-36); Mean Corpuscular Volume 90.4 fL (80-100); Mean Platelet Volume 8.8 fL (7.4-10.4); Monocytes % (auto) 8.3 %; Neutrophils # (auto) 4.22 K/uL (1.4-6.5); Neutrophils % (auto) 49.9 %; Platelet Count 221 K/uL (130-400); RDW Coefficient of Variation 13.1 % (11.5-14.5); RDW Standard Deviation 43.1 fL (36.4-46.3); Red Blood Count 3.74 M/uL (4.2-5.4); White Blood Count 8.45 K/uL (4.8-10.8)
[2019-07-17] MEDS: METOPROLOL TARTRATE 25 MG TAB PO SCH ×2 (08:01→20:25)
[2019-07-17] MEDS: CLOPIDOGREL BISULFATE 75 MG TAB PO SCH (08:02)
[2019-07-17] MEDS: FUROSEMIDE 20 MG TAB PO SCH (08:02)
[2019-07-17] MEDS: DULOXETINE HCL 20 MG CAP PO SCH (08:02)
[2019-07-17] MEDS: CEROVITE ADV FORMULA TAB PO SCH (08:02)
[2019-07-17] MEDS: DOCUSATE SODIUM 100 MG CAP PO SCH ×2 (08:02→20:25)
[2019-07-17 08:15] LABS: BUN Creatinine Ratio 20.5 (10-20); Blood Urea Nitrogen 41 mg/dl (7-18); Calcium 9.3 mg/dl (8.5-10.1); Carbon Dioxide 26 mmol/L (21-32); Chloride 109 mmol/L (98-107); Creatinine Clr Calc Pharmacy 23.1 ml/min; Est GFR (African American) 25.9; Est GFR (Non-African American) 22.3; Glucose 159 mg/dl (70-99); Potassium 4.3 mmol/L (3.5-5.1); Sodium 142 mmol/L (136-145)
[2019-07-17 08:20] LABS: Chol HDL Ratio 6; Cholesterol 225 mg/dl (0-200); HDL Cholesterol 37 mg/dl; LDL Cholesterol Calculated 140 mg/dl; Triglycerides 238 mg/dl (0-150); Troponin I < 0.015 ng/ml (0-0.045); VLDL Cholesterol 48 mg/dl
[2019-07-17] MEDS: FAMOTIDINE 20 MG in SYRINGE 3 ML IV SCH (09:11)
[2019-07-17] MEDS: ASPIRIN 81 MG ECTAB PO SCH (09:11)
[2019-07-17] MEDS: HEPARIN SOD 5,000 UNIT/0.5 ML VIAL SQ SCH ×2 (10:09→20:27)
--- NOTE | 2019-07-17 10:40 | Neurology Consultation ---
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 The timing of the stroke is possibly the evening of July 14, but perhaps more likely sometime during the morning or afternoon of July 15. Clinically she has dysarthria, right hand greater than leg weakness and left facial droop on presentation (not current presently). Etiology of the stroke is likely hypertensive small vessel ischemic disease. Her blood pressure is not been adequately controlled on admission. She has a history of dyslipidemia as well (and can't take statins due to allergies). The patient has chronic cerebral ischemia, as well as multifocal stenoses in major vessels as noted in the MRA of the head, as well as the new stroke, despite being on aspirin long-term. Patient has a history of lumbar spinal stenosis diffusely with radicular symptoms left greater than right leg improved with recent lumbar injection procedure 1 week ago. She has chronic lower extremity weakness and gait problems because of this. The right lower extremities likely little bit worse because of her stroke compared to baseline. Recommendations: 1. Continue clopidogrel 75 milligrams daily +80 1 milligram aspirin tablet daily for 3 weeks then drop the aspirin and stay on clopidogrel alone. 2. Control blood pressure a meeting for a mean arterial pressure of 95-100. 3. Treat the patient's dyslipidemia with another medication besides statin (in lieu of her allergies). 4. PT, OT, and speech therapy consults. She would be a rehabilitation hospital candidate when she is stable medically. 5. There is no need for additional neurologic testing or treatment at this time. I could do EMG and nerve conduction studies of the legs, if necessary/indicated, as an outpatient Overall, I spent a total of 110 minutes with this case including review of records, review of MRI films, direct evaluation patient bedside, discussion the case with the patient at bedside, her son and daughter at bedside, the RN, and Dr. Wilson, and Agueda EARL, including differential diagnosis and treatment options. History of Present Illness Reason for Consultation: patient is a 84 year old who I was asked to see at the request of Agueda EARL Requesting Physician: Agueda EARL Attending Physician: Junaid Wilson MD History of Present Illness This patient has a history of hypertension for over 20 years as well as some dyslipidemia and coronary artery disease. She has chronic kidney disease stage 4 for at least 5 years. The patient has been on 81 milligram aspirin tablet daily for many years. She has had problems with her lumbar spine with radicular symptomatology left greater than right leg, occurring for at least a year. She has received nerve ablation is an injections from [facility]. One week ago she had a left sided lumbar spine procedure which really helped decrease the pain down her left leg. On July 14, around 7 o'clock in the evening she was walking with her walker in the house when her legs buckled and she fell. She landed on her knees. There was no head trauma or loss of consciousness. She called her son and daughter who noticed some slurred speech and trouble getting up off the ground but she did not have hand or arm weakness or a facial droop. She read the emergency room on July 14 with a blood pressure of 183/113. An MRI of the lumbar spine was performed because of her bilateral lower extremity weakness and inability to walk. There was no acute process and was not changed compared to the previous MRI of May 31. There was moderate multilevel degenerative changes of disc and bone with mild multilevel canal and foraminal stenosis. After discussion and the inability to go home she was sent to the rehabilitation hospital early in the morning of July 15. At the rehab hospital she felt that she had leg weakness and was tired in general. Her speech was still slurred and she had the onset of right hand weakness sometime in the late morning or early afternoon that day. She participated in therapy and family members noted her speech problem, right hand problem, some left face weakness and her leg weakness. The next morning she had some trouble swallowing but she was not choking. She had the same symptoms as the day before. She was sent to the emergency room. On July 16 she arrived at 1626 with a temperature of 36.2, pulse 70, blood pressure 178/111, respiratory rate 70, and O2 saturation 94 percent. She was described as having slow speech and right-sided weakness. There is a questionable facial weakness. CBC was unremarkable as was a urinalysis. BUN was elevated at 44 and creatinine 2.2. Glucose was 191 and hemoglobin A1c was 7.5. Alk-phos was 133. CT scan of the head showed no acute changes. MRI of the brain showed a 1.6 centimeter left pontine ischemic infarct. There was mild diffuse old small vessel ischemic changes and atrophy noted in general. I reviewed these films. MR angiography of the head revealed right vertebral, left [facility] [employer], and right [facility] [employer] [facility] moderate stenoses. Carotid ultrasound was largely unremarkable bilaterally. Total cholesterol was 225 and triglycerides 238. Echocardiogram was largely unremarkable. This morning, blood pressure is 201/64. She has mild anemia on CBC. She feels that her speech is a little bit better as is her right hand but is still not normal. She has no pain in her legs or arms today. Allergies Allergy/AdvReac Type Severity Reaction Status Date / Time adhesive tape Allergy Severe BLISTER Verified 07/16/19 18:53 SKIN doxycycline Allergy Severe trouble Verified 07/16/19 18:53 breathing Iodinated Contrast Media Allergy Severe ON PT LIST Verified 07/16/19 18:53 [Iodinated Contrast- Oral and IV Dye] cortisone Allergy Intermediate SWELLING, Verified 07/16/19 18:53 CHILLS, SHAKINESS levofloxacin Allergy Intermediate SHORTNESS Verified 07/16/19 18:53 OF BREATH cephalexin Allergy Mild RASH Verified 07/16/19 18:53 latex Allergy Mild Redness of Verified 07/16/19 18:53 Skin acetaminophen Allergy Unknown UNKNOWN Verified 07/16/19 18:53 Aminoglycosides Allergy Unknown ON PT LIST Verified 07/16/19 18:53 atorvastatin Allergy Unknown ON PT LIST Verified 07/16/19 18:53 bacitracin Allergy Unknown ON PT LIST Verified 07/16/19 18:53 benzonatate Allergy Unknown ON PT LIST Verified 07/16/19 18:53 febuxostat Allergy Unknown ON PT LIST Verified 07/16/19 18:53 indomethacin Allergy Unknown ON PT LIST Verified 07/16/19 18:53 methylprednisolone Allergy Unknown ON PT LIST Verified 07/16/19 18:53 mivacurium Allergy Unknown Unknown Verified 07/16/19 18:53 neomycin Allergy Unknown ON PT LIST Verified 07/16/19 18:53 oxycodone Allergy Unknown ON PT LIST Verified 07/16/19 18:53 polymyxin B Allergy Unknown ON PT LIST Verified 07/16/19 18:53 prednisone Allergy Unknown ON PT LIST Verified 07/16/19 18:53 rosuvastatin Allergy Unknown ON PT LIST Verified 07/16/19 18:53 Hshcadu-Mli-Nja Reductase Allergy Unknown ON PT LIST Verified 07/16/19 18:53 Inhibitor azithromycin AdvReac Intermediate Flushed Verified 07/16/19 18:53 Skin diphenhydramine AdvReac Intermediate Short of Verified 07/16/19 18:53 [From [facility]] Breath, Puffiness, Redness Home Medications Home Medications Medication Instructions Recorded Confirmed Type amlodipine 2.5 mg PO QAM 01/29/19 07/16/19 History aspirin 81 mg PO QAM 01/29/19 07/16/19 History isosorbide mononitrate 60 mg PO QAM 01/29/19 07/16/19 History nitroglycerin [Nitrostat] 0.4 mg SUBLINGUAL DIRECTED PRN 01/29/19 07/16/19 History lisinopril 10 mg tablet 10 mg PO QAM #30 tab 05/16/19 07/16/19 Rx metoprolol tartrate 25 mg tablet 12.5 mg PO BID #60 tab 05/16/19 07/16/19 Rx pantoprazole 40 mg tablet,delayed 40 mg PO QAM #90 tab 07/01/19 07/16/19 Rx release betuzccg-cpm-JF-lycopen-lutein 1 tab PO DAILY 07/14/19 07/16/19 History [Centrum Silver] acetaminophen [Tylenol Extra 500 mg PO Q4 PRN 07/16/19 07/16/19 History Strength] bisacodyl 10 mg WI DAILY PRN 07/16/19 07/16/19 History docusate sodium 100 mg PO BID 07/16/19 07/16/19 History duloxetine [Cymbalta] 20 mg PO DAILY 07/16/19 07/16/19 History polyethylene glycol 3350 [Miralax] 17 g PO DAILYBL PRN 07/16/19 07/16/19 History sennosides-docusate sodium [Senna 1 tab-cap PO DAILYBL PRN 07/16/19 07/16/19 History with Docusate Sodium] Patient History Medical History Chronic obstructive pulmonary disease Sleep apnea does not tolerate CPAP - wears oxygen at night 2 lpm Hypertension Hyperlipidemia Deep vein thrombosis (Resolved) > 10 years ago - LLE after injury - treated w/ AC therapy Congestive heart failure History of depression History of anxiety Hearing deficit [place] History of stomach ulcers Borderline diabetes GERD (gastroesophageal reflux disease) Diverticular disease Chronic kidney disease, stage 4 (severe) follows w/ dr. mosley History of benign breast biopsy Osteoarthritis Osteoporosis On home oxygen therapy 2 lpm @ night. daytime PRN. Lumbar degenerative disc disease (Chronic) Surgical History History of cardiac cath 10 years ago - [facility] - - no stents/angioplasty - follows w/ Dr. Rodriguez History of tonsillectomy History of cholecystectomy History of tooth extraction History of colonoscopy History of esophagogastroduodenoscopy (EGD) History of total abdominal hysterectomy and bilateral salpingo-oophorectomy History of cataract surgery LEFT on 02/18/19: was given 1mg of Versed Removal of ovarian cyst (Resolved 08/01/12) Family History Mother , of liver disease Family history of diabetes mellitus Brother Family history of diabetes mellitus Daughter Family history of diabetes mellitus Sister Family history of diabetes mellitus Father , of an PA Myocardial infarction Social History Preferred Language: Romanian Communication Ability: Effective Bottom Turning Lathe Turner Required: No Beliefs That Will Affect Care: None marital status: / Current Living Situation: Family Current Living Situation Comment: family checks in on pt daily current occupational status: retired current occupation: Retired in the late 80s Other Information That Helps Us Care for You: No other: 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 [employer] Feels Safe at Home: Yes Safety Concerns: Feels Safe At This Time Smoking Status: Never smoker Second Hand Exposure: No ; Hx Alcohol Use: No Hx Substance Use: No Review of Systems Constitutional: + fatigue and + weakness; no fever Eyes: no diplopia, no eye pain and no worsening vision Ear, Nose, Mouth, Throat: + hearing loss; no ear pain, no tinnitus, no dizziness, no snoring, no hoarseness and no dysphagia Respiratory: no cough and no dyspnea Cardiovascular: no chest pain, no palpitations and no lightheadedness Gastrointestinal: no abdominal pain, no nausea and no vomiting Genitourinary: no dysuria, no urinary frequency and no urinary incontinence Musculoskeletal: + back pain; no neck pain, no radicular pain, no joint pain and no myalgia Integumentary: no rash and no lesions Neurologic: + gait abnormality, + localized weakness and + abnormal speech; no generalized weakness, no tingling, no numbness, no tremor(s), no abnormal movements, no headache(s), no confusion and no memory loss Psychiatric: no depression, no irritability, no anxiety, no difficulty concentrating, no confusion and no hallucinations Endocrine: + fatigue; no flushing Hematologic / Lymphatic: no easy bleeding and no easy bruising Allergy / Immunological: no urticaria and no problem reported Physical Exam Physical Exam: The patient is right-handed. The patient is awake, alert, and attentive. Speech is normal without any aphasia but she does have a mild dysarthria. She can name objects, repeat phrases, and has normal spontaneous speech. Mentation and thought processes are intact, with orientation to person, place and time, and normal fund of knowledge. Attention and concentration are normal. Mood and affect are normal and appropriate. General appearance and grooming are normal. Short and long-term memory are basically intact to conversation. The discs are sharp with positive venous pulsations bilaterally. There are no exudates, hemorrhages, or blood vessel changes seen. Pupils are 3 mm bilaterally and reactive to light. Extraocular eye muscles are intact without nystagmus. Visual acuity and visual mclain seem normal grossly to confrontation. There are no deficits to sensation in the face in all 3 distributions of the fifth cranial nerve bilaterally. Corneal reflexes are positive bilaterally. Facial strength and symmetry was normal bilaterally. Cannot appreciate a facial droop bilaterally. Hearing seems mildly decreased to conversation bilaterally. Palate moves well without asymmetry. There is normal sternocleidomastoid and trapezius (shoulder shrug) strength bilaterally. Tongue is midline with good strength bilaterally. Neck has a full range of motion without discomfort. There are no cervical bruits bilaterally. There are no cranial or ocular bruits. Heart is without murmur. There is a regular rhythm and rate. Cervical, thoracic, and lumbar spine are nontender to palpation. Gait was not tested but stance sitting up in bed is good With outstretched arms there is a drift on the right. There are no resting, postural, or action tremors. There is no ataxia with finger to nose testing. There is decreased facility in the right hand compared to the left. No other abnormal involuntary movements are noted. Motor strength is 4/5 diffusely in the right upper extremity both proximally distally and closer to 5/5 in the left upper extremity diffusely. Leg strength is 4/5 in the hip flexors, quadriceps, and hamstring muscles bilaterally. Strength is 4+/5 in the tibialis anterior and gastrocnemius muscles bilaterally. The right foot may be a little clumsier than the left. The limbs have good tone without rigidity or spasticity. There is no atrophy noted in the muscles. Muscle bulk is normal, there is no tenderness to palpation, no myotonia to percussion, and no fasciculations seen. Sensory examination is intact to touch and pin throughout all 4 limbs diffusely. Reflexes are 1/4 in the biceps, triceps, brachioradialis, quadriceps, and Achilles tendons bilaterally. There is no clonus bilaterally. Toes are downgoing with plantar stimulation bilaterally. Peripheral pulses are present and of normal quality distally in all 4 limbs. There is no peripheral edema noted in the limbs. Results & Data Vital Signs (Past 12 Hours) Vital Signs Temp Pulse Pulse Resp BP BP Pulse Ox 07/17/19 09:31 201/64 H 95 07/17/19 08:00 36.8 C 71 16 203/75 H 94 07/17/19 07:31 70 07/17/19 03:19 36.7 C 59 L 20 171/68 H 96 07/17/19 00:00 70 07/16/19 23:50 36.7 C 61 20 154/55 H 96 Diagnostic Findings MRI OF THE BRAIN WITHOUT CONTRAST CLINICAL HISTORY: Acute stroke. COMPARISON STUDY: 01/21/2011 FINDINGS: Sagittal T1, axial diffusion, proton density and T2 weighted axial, coronal FLAIR, and axial T1-weighted images were acquired. No intra or extra-axial mass lesions are visualized There is a 16 mm focus of restricted water diffusion within the left central raphael. The findings are indicative of acute/subacute infarct. There is no evidence of ventricular dilatation. Proton density T2-weighted and FLAIR images reveal scattered foci of increased T2 signal within the white matter, likely on a small vessel basis. There is also a focus of increased T2 signal within the left central raphael consistent with the above-described infarct. There are no abnormal flow voids. There are foci of increased T2 signal within the mastoids consistent with an inflammatory etiology IMPRESSION: 1. Acute/subacute left central pontine infarct measuring approximately 16 mm. Electronically signed by: Nate Ribeiro M.D. 07/17/2019 6:52 AM PG Care Time/CCT Total # of Minutes Spent Total Time Spent with Patient: Total time spent is greater than 50% in coordination of care (as documented) at patient's floor/unit and/or counseling patient:
--- NOTE | 2019-07-17 13:13 | Hospitalist Progress Note ---
Date of Service July 17, 2019 Assessment & Plan (1) CVA (cerebral vascular accident): MRI showing left central pontine acute/subacute infarct 16mm. Neurology feels this most likely began 07/15 as that was when patient developed right arm weakness MRA with severe multifocal stenosis of the right vertebral and left posterior cerebral arteries Carotid doppler without significant stenosis Trop wnl, echo with normal EF, no WMA, no shunt PT/OT, speech A1c 7.5% Consulted neurology, they recommend: -Continue clopidogrel 75 milligrams daily +80 1 milligram aspirin tablet daily for 3 weeks then drop the aspirin and stay on clopidogrel alone. - Control blood pressure a meeting for a mean arterial pressure of 95-100. - Treat the patient's dyslipidemia with another medication besides statin (in lieu of her allergies). -There is no need for additional neurologic testing or treatment at this time. Could do EMG and nerve conduction studies of the legs, if necessary/indicated, as an outpatient (2) Hypertension: resume olmesartan, amlodipine, continue metoprolol and furosemide (3) GERD (gastroesophageal reflux disease): resume pantoprazole (4) Chronic kidney disease, stage 4 (severe): baseline creat around 2.5 avoid nephrotoxins where possible (5) Osteoarthritis: Patient lumbar MRI 07/14 showing moderate multilevel degenerative disc disease and facet arthrosis. Mild multilevel central canal and neural foraminal stenosis. PT/OT (6) Chronic obstructive pulmonary disease: wears 2L NC at night does not appear to be on inhalers (7) Hyperlipidemia: Triglycerides 238, LDL 140, HDL 37 allergies to statins Will start on Zetia and check pricing of Repatha with nurse navigator (8) DVT prophylaxis: heparin subq bid SCDs Code: DNR Supervising Physician Co-Signing Physician Notes I have seen and examined pt with RAJAT Brian and I agree with the assessment and plan. Subjective Ms. Olvera's dysarthria has improved but is still present. She has some back pain at times. Continues to have right arm weakness and weakness in both legs. ROS Constitutional: no chills, aches, sweats or fever Respiratory: no sob,cough, sputum, or wheezing Cardiac: no chest pain, palpitations, edema, orthopnea or lightheadedness GI: no abdominal pain, nausea, vomiting, diarrhea or constipation : no dysuria or hesitancy Extremities: see HPI Skin: no rash All other systems reviewed and negative Physical Exam Physical Exam: General: no distress Eyes: normal inspection, PERLL Respiratory: chest non tender, clear to auscultation, normal breath sounds, no respiratory distress, no accessory muscle use Cardiac: regular rate and rhythm, no rub or gallop, no murmur, no edema, no jvd GI/: active bowel sounds, no abd pain or tenderness, soft, non distended Extremities: normal range of motion, right arm and bilateral leg weakness, right leg weaker than left , non tender Neuro/Psych: alert and oriented x 3, normal mood and affect, dysarthric, right arm drift/weakness, Skin: normal color, dry Results & Data Vital Signs (Past 12 Hours) Vital Signs Temp Pulse Pulse Resp BP BP Pulse Ox 07/17/19 11:48 36.8 C 59 L 20 167/69 H 94 07/17/19 09:31 201/64 H 95 07/17/19 08:00 36.8 C 71 16 203/75 H 94 07/17/19 07:31 70 07/17/19 03:19 36.7 C 59 L 20 171/68 H 96 PG Care Time/CCT Total # of Minutes Spent Total Time Spent with Patient: Total time spent is greater than 50% in coordination of care (as documented) at patient's floor/unit and/or counseling patient:
[2019-07-17] MEDS: OMEGA-3 (PURIFIED FISH OIL) 1 GM CAP PO SCH ×2 (13:35→20:26)
[2019-07-17] MEDS: SODIUM CHLORIDE 0.9% 1000ML 1,000 ML IV SCH (14:33)
--- NOTE | 2019-07-17 16:02 | Pharmacy Report ---
Pharmacy Progress Note - Date of Service July 17, 2019 - Progress Note Stroke Medications Background * CT and MRI both with acute/subacute infarct * Patient is a who lives alone, but with family who checks on her daily. Prior to this visit, she was at [facility] since 07/14 for fall 2nd weakness * PMH: LA, CAD, HTN, HLD, CKD IV, GERD, GIB 2nd culer Home stroke medications * Aspirin 81 mg po daily Inpatient/possible discharge medications * Antiplatelet agent(s) * Clopidogrel added to home aspirin * Anticoagulation * On heparin prophylaxis * No noted history of Afib * Recent fall noted * Cholesterol * Despite hx of HLD, patient not on any medications for cholesterol at home, per outpatient medication list * LDL 140 this admission * Allergy to rosuvastatin/Statins noted (reaction unknown) - likely the reason patient not currently receiving * Diabetes * No documented history of diabetes, but A1c this admission 7.5% and admitting BSG >180 mg/dL * Goal A1c may be either <8% or <7%. Although some patients with CVA may benefit from more rigid goal, sometimes less aggressive goals are indicated in elderly patients. Therefore A1c may or may not be at goal and therefore intervention may or may not be indicated * CKD IV complicates initiation of diabetes medication - cannot use metformin or SGLT2 inhibitors * Thiazolidinediones (pioglitazone specifically) - while administered orally, this increases risk for heart failure which is not desirable especially for a patient with hx LA/CAD/HTN. * GLP-1 agonist may be best option for this patient, but there are also multiple possible limitations. This is administered SQ (dulaglutide = wee kly admin) which patient/family may or may not be able to accommodate. Tolerability (nausea especially) may be an issue. Cost may also be an issue depending on insurance coverage * While there are other medications for diabetes, no other medications/classes have demonstrated proven decrease in major adverse cardiovascular events (including stroke) Recommendations * Await neurology recommendations * Follow-up on reaction to rosuvastatin, and consider risk/benefit of initiation of statin. If initiation of statin is desired, consider high-intensity atorvastatin (40 mg po daily) * Consider risk/benefit of initiating antihyperglycemic medication. If outpatient medication for diabetes is desired, best choice is likely dulaglutide 0.75 mg SC weekly Please let us know if we can be of further assistance.
[2019-07-17] MEDS ORDERED: PHARMACY GLYCEMIC MGMT CONSULT PRN (17:47)
[2019-07-17] MEDS ORDERED: AMLODIPINE BESYLATE 5 MG TAB PO ONE (18:16)
[2019-07-17] MEDS: INSULIN ASPART 100 UNITS/ML 3 ML PEN SC SCH ×2 (18:19→21:15)
[2019-07-17] MEDS: HydrALAZINE 10 MG TAB PO PRN ×2 (18:23→20:26)
[2019-07-18 06:01] LABS: Basophils # (auto) 0.07 K/uL (0-0.2); Eosinophils # (auto) 0.19 K/uL (0-0.5); Eosinophils % (auto) 2.6 %; Hematocrit (blood only) 33.9 % (37-47); Hemoglobin 11.4 g/dL (12.0-16.0); Immature Granulocytes # (auto) 0.01 K/uL (0.00-0.02); Immature Granulocytes % (auto) 0.1 %; Lymphocytes # (auto) 2.78 K/uL (1.2-3.4); Lymphocytes % (auto) 38.1 %; Mean Corpuscular Hemoglobin 30.7 pg (25-34); Mean Corpuscular Hgb Conc 33.6 g/dL (32-36); Mean Corpuscular Volume 91.4 fL (80-100); Monocytes # (auto) 0.67 K/uL (0.11-0.59); Monocytes % (auto) 9.2 %; Neutrophils # (auto) 3.58 K/uL (1.4-6.5); Platelet Count 241 K/uL (130-400); RDW Coefficient of Variation 13.3 % (11.5-14.5); RDW Standard Deviation 44.4 fL (36.4-46.3); Red Blood Count 3.71 M/uL (4.2-5.4)
[2019-07-18 06:28] LABS: BUN Creatinine Ratio 17.8 (10-20); Creatinine Clr Calc Pharmacy 23.3 ml/min; Est GFR (African American) 25.7; Est GFR (Non-African American) 22.2; Potassium 4.1 mmol/L (3.5-5.1)
[2019-07-18] MEDS ORDERED: PANTOprazole 40 MG TAB PO SCH (09:00)
[2019-07-18] MEDS ORDERED: CLOPIDOGREL BISULFATE 75 MG TAB PO SCH (09:00)
[2019-07-18] MEDS ORDERED: AMLODIPINE BESYLATE 5 MG TAB PO SCH (09:00)
[2019-07-18] MEDS: INSULIN ASPART 100 UNITS/ML 3 ML PEN SC SCH ×4 (09:19→21:31)
--- NOTE | 2019-07-18 09:41 | Pharmacy Report ---
Pharmacy Glycemic Short Note 2 - Date of Service July 18, 2019 - Glycemic Short BSG Results (Last 24 hours): 07/17/19 07/17/19 07/18/19 17:50 20:37 05:34 Glucose 144 H POC Glucose 129 H 141 H OUTPATIENT ANTIDIABETIC REGIMEN: * None * A1c = 7.5% ASSESSMENT: * Patient admitted for weakness, slurred speech and facial droop on 07/16, dx with CVA. * A1c and observed BSGs this admission suggest possible new dx of DM * BSGs have been well controlled thus far and patient has only received 2 units of correctional insulin * Fasting BSG elevated this AM (FBS 163), basal insulin may be needed. Will initiate per scale this evening * Will add prandial insulin to current Novolog order should pt's diet advance today. PLAN FOR INPATIENT GLYCEMIC CONTROL: * Basal insulin * Lantus Q HS per the following scale: * 0 units if BSG less than 120 * 10 units if BSG 120-180 * 15 units if BSG above 180 * Bolus insulin * NovoLog per scale ACHS or Q6hrs while NPO * Goal Range: Low 110 mg/dL - High 140 mg/dL * Correction Factor: 25 mg/dL/unit * Nutritional / Prandial insulin per carb ratio of 1 unit per 10 grams CHO consumed PLAN FOR DISCHARGE: * A1c of 7.5% may be acceptable for this patient given comorbidities. Given her h/o CKD4 her outpt treatment options are limited. One option my be sitagliptin 25mg po daily (renally dosed) as this carries a low risk of hypoglycemia and her A1c is not greatly elevated.
[2019-07-18] MEDS: DULOXETINE HCL 20 MG CAP PO SCH (10:17)
[2019-07-18] MEDS: ASPIRIN 81 MG ECTAB PO SCH (10:17)
[2019-07-18] MEDS: DOCUSATE SODIUM 100 MG CAP PO SCH ×2 (10:17→21:33)
[2019-07-18] MEDS: ISOSORBIDE MONO EXTENDED REL 60 MG TABCR PO SCH (10:17)
[2019-07-18] MEDS: FUROSEMIDE 20 MG TAB PO SCH (10:18)
[2019-07-18] MEDS: METOPROLOL TARTRATE 25 MG TAB PO SCH ×2 (10:18→23:48)
[2019-07-18] MEDS: CEROVITE ADV FORMULA TAB PO SCH (10:19)
[2019-07-18] MEDS: OMEGA-3 (PURIFIED FISH OIL) 1 GM CAP PO SCH ×2 (10:20→21:30)
[2019-07-18] MEDS: FAMOTIDINE 20 MG TAB PO SCH (10:21)
[2019-07-18] MEDS: HEPARIN SOD 5,000 UNIT/0.5 ML VIAL SQ SCH ×2 (10:21→21:30)
[2019-07-18] MEDS: CLOPIDOGREL BISULFATE 75 MG TAB PO SCH (10:21)
[2019-07-18] MEDS: LISINOPRIL 10 MG TAB PO SCH (10:21)
[2019-07-18] MEDS: EZETIMIBE 10 MG TABLET PO SCH (10:21)
[2019-07-18] MEDS ORDERED: ACETAMINOPHEN 500 MG TAB ONE (13:28)
--- NOTE | 2019-07-18 15:15 | Hospitalist Progress Note ---
Date of Service July 18, 2019 Assessment & Plan (1) CVA (cerebral vascular accident): MRI showing left central pontine acute/subacute infarct 16mm. Likely began 07/15 as that was when patient developed right arm weakness MRA with severe multifocal stenosis of the right vertebral and left posterior cerebral arteries Carotid doppler without significant stenosis Trop wnl, echo with normal EF, no WMA, no shunt PT/OT, speech A1c 7.5% Consulted neurology, they recommend: -Continue clopidogrel 75 milligrams daily +80 1 milligram aspirin tablet daily for 3 weeks then drop the aspirin and stay on clopidogrel alone. - Control blood pressure a meeting for a mean arterial pressure of 95-100. - Treat the patient's dyslipidemia with another medication besides statin (in lieu of her allergies). -There is no need for additional neurologic testing or treatment at this time. Could do EMG and nerve conduction studies of the legs, if necessary/indicated, as an outpatient 07/18 - worsening right arm weakness and dysarthria. Will have patient repeat MRI. Will re-involve neurology if any concerning findings (2) Hypertension: continue olmesartan, amlodipine, metoprolol and furosemide Will increase amlodipine 5 mg as patient's pressures are elevated at times (3) GERD (gastroesophageal reflux disease): resume pantoprazole (4) Chronic kidney disease, stage 4 (severe): baseline creat around 2.5 avoid nephrotoxins where possible (5) Osteoarthritis: Patient lumbar MRI 07/14 showing moderate multilevel degenerative disc disease and facet arthrosis. Mild multilevel central canal and neural foraminal stenosis. PT/OT (6) Chronic obstructive pulmonary disease: wears 2L NC at night does not appear to be on inhalers (7) Hyperlipidemia: Triglycerides 238, LDL 140, HDL 37 allergies to statins - anaphylactic reaction Initiated Zetia. Repatha pricing checked - will be quite expensive for patient. Advised her to discuss with her pcp in follow up. (8) DVT prophylaxis: heparin subq bid SCDs Code: DNR Supervising Physician Co-Signing Physician Notes I have seen and examined pt with RAJAT Brian and I agree with the assessment and plan. Subjective Ms. Olvera's symptoms were worse today with increased right arm weakness and dysarthria. She is also feeling very tearful and cries easily. She has continued pain in her back and foot. She was unable to participate much in therapy ROS Constitutional: no chills, aches, sweats or fever Respiratory: no sob,cough, sputum, or wheezing Cardiac: no chest pain, palpitations, edema, orthopnea or lightheadedness GI: no abdominal pain, nausea, vomiting, diarrhea or constipation : no dysuria or hesitancy Extremities: see HPI Skin: no rash All other systems reviewed and negative Results & Data Vital Signs (Past 12 Hours) Vital Signs Temp Pulse Resp BP BP Pulse Ox 07/18/19 11:00 37.0 C 93 H 16 148/66 H 96 07/18/19 07:01 36.5 C 59 L 22 188/68 H 96 07/18/19 04:40 36.4 C L 61 18 105/68 97 PG Care Time/CCT Total # of Minutes Spent Total Time Spent with Patient: Total time spent is greater than 50% in coordination of care (as documented) at patient's floor/unit and/or counseling patient:
[2019-07-18] MEDS: ACETAMINOPHEN 500 MG TAB PO PRN (18:30)
--- NOTE | 2019-07-18 20:45 | Magnetic Resonance Report ---
MR brain wo con HISTORY: 84 years-old Female worsening CVA symptoms follow-up study in a patient with acute strokeli ke symptoms COMPARISON: Brain MRI 07/17/2019 TECHNIQUE: Multiplanar multisequence MRI of the brain was obtained without the use of IV contrast. FINDINGS: Acute/subacute left-sided central pontine infarction is redemonstrated which measures up to approxima tely 2.1 x 1.1 cm on image 8 of series 4, previously measuring 1.9 x 1.1 cm. The degree of cytotoxic edema within this distribution has not significantly changed. No additional restricted diffusion to s uggest new area of acute or subacute infarction. Corpus callosum, optic chiasm, pituitary and pineal glands appear unremarkable sagittal T1 series. There is no cerebellar tonsillar herniation. Degenerat linda changes noted about the imaged cervical spine. No acute intracranial hemorrhage, midline shift, abnormal extra-axial collection, hydrocephalus or in tracranial mass. Age-related involutional changes. Moderate scattered T2/FLAIR hyperintensities sugge st chronic microvascular ischemic disease. Major flow voids at the level of the skull base appear pat ent. Small bilateral mastoid effusions. Mild mucosal thickening of the nasal turbinates and ethmoid s inuses. Prior bilateral cataract repair. The skull and soft tissues are unremarkable. IMPRESSION: 1. Unchanged size and appearance of the acute/subacute left central pontine infarction. 2. No acute intracranial hemorrhage, midline shift or hydrocephalus. The above report was generated using voice recognition software. It may contain grammatical, syntax o r spelling errors. Electronically signed by: Micky Gooden M.D. 07/18/2019 8:44 PM
[2019-07-18] MEDS ORDERED: LANTUS PER UNIT CHARGE SQ SCH (21:00)
[2019-07-19] MEDS: HydrALAZINE 10 MG TAB PO PRN (04:04)
[2019-07-19 07:44] LABS: Basophils # (auto) 0.04 K/uL (0-0.2); Basophils % (auto) 0.5 %; Eosinophils % (auto) 2.7 %; Hematocrit (blood only) 34.4 % (37-47); Hemoglobin 11.6 g/dL (12.0-16.0); Immature Granulocytes # (auto) 0.02 K/uL (0.00-0.02); Immature Granulocytes % (auto) 0.3 %; Lymphocytes # (auto) 2.83 K/uL (1.2-3.4); Lymphocytes % (auto) 37.9 %; Mean Corpuscular Hemoglobin 31.3 pg (25-34); Mean Corpuscular Hgb Conc 33.7 g/dL (32-36); Mean Corpuscular Volume 92.7 fL (80-100); Mean Platelet Volume 8.8 fL (7.4-10.4); Monocytes # (auto) 0.62 K/uL (0.11-0.59); Monocytes % (auto) 8.3 %; Neutrophils # (auto) 3.75 K/uL (1.4-6.5); Neutrophils % (auto) 50.3 %; Platelet Count 232 K/uL (130-400); RDW Coefficient of Variation 13.4 % (11.5-14.5); RDW Standard Deviation 45.1 fL (36.4-46.3); Red Blood Count 3.71 M/uL (4.2-5.4); White Blood Count 7.46 K/uL (4.8-10.8)
[2019-07-19] MEDS: DULOXETINE HCL 20 MG CAP PO SCH (08:12)
[2019-07-19] MEDS: ASPIRIN 81 MG ECTAB PO SCH (08:14)
[2019-07-19] MEDS: FUROSEMIDE 20 MG TAB PO SCH (08:14)
[2019-07-19] MEDS: FAMOTIDINE 20 MG TAB PO SCH (08:16)
[2019-07-19] MEDS: HEPARIN SOD 5,000 UNIT/0.5 ML VIAL SQ SCH (08:17)
[2019-07-19 08:18] LABS: BUN Creatinine Ratio 18.6 (10-20); Calcium 8.9 mg/dl (8.5-10.1); Creatinine Clr Calc Pharmacy 22.6 ml/min; Est GFR (African American) 26.4; Est GFR (Non-African American) 22.8; Potassium 4.2 mmol/L (3.5-5.1)
[2019-07-19] MEDS: CLOPIDOGREL BISULFATE 75 MG TAB PO SCH (08:21)
[2019-07-19] MEDS: METOPROLOL TARTRATE 25 MG TAB PO SCH (08:23)
[2019-07-19] MEDS: ISOSORBIDE MONO EXTENDED REL 60 MG TABCR PO SCH (08:23)
[2019-07-19] MEDS: LISINOPRIL 10 MG TAB PO SCH (08:25)
[2019-07-19] MEDS: EZETIMIBE 10 MG TABLET PO SCH (08:25)
[2019-07-19] MEDS: OMEGA-3 (PURIFIED FISH OIL) 1 GM CAP PO SCH (08:26)
[2019-07-19] MEDS: DOCUSATE SODIUM 100 MG CAP PO SCH (08:26)
[2019-07-19] MEDS: CEROVITE ADV FORMULA TAB PO SCH (08:27)
[2019-07-19] MEDS: INSULIN ASPART 100 UNITS/ML 3 ML PEN SC SCH ×2 (08:33→12:48)
[2019-07-19] MEDS ORDERED: AMLODIPINE BESYLATE 5 MG TAB PO ONE (08:38)
[2019-07-19] MEDS ORDERED: AMLODIPINE BESYLATE 5 MG TAB PO SCH ×2 (09:00)
--- NOTE | 2019-07-19 09:51 | Neurology Progress Note ---
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 The timing of the stroke is possibly the evening of July 14, but perhaps more likely sometime during the morning or afternoon of July 15. Clinically she had dysarthria, right hand greater than leg weakness and left facial droop on presentation. She was noted by EMS to be flaccid on the right side. When I saw her on July 17, she had mild right tommy paresis arm greater than leg and no significant left facial droop but she did have some dysarthria. Today she is back to a flaccid plegic right upper extremity and severely paretic right lower extremity. She has a facial droop on the left and dysarthria. Repeat MRI of the brain yesterday did not show any change in her stroke. There was no hemorrhage. I suspect edema within the infarct area creating her worsening presentation. Etiology of the stroke is likely hypertensive, small vessel ischemic disease. Her blood pressure was not adequately controlled on admission. She has a history of dyslipidemia as well (and can't take statins due to allergies). The patient has chronic cerebral ischemia, as well as multifocal stenoses in major vessels as noted in the MRA of the head, as well as the new stroke, despite being on aspirin long-term. Patient has a history of lumbar spinal stenosis diffusely with radicular symptoms left greater than right leg improved with recent lumbar injection procedure 1 week ago. She has chronic lower extremity weakness and gait problems because of this. The right lower extremities likely little bit worse because of her stroke compared to baseline. Patient has developed a depression secondary to her realization that she is worse today. This is very appropriate and I do not see any pseudobulbar affect. Recommendations: 1. Continue clopidogrel 75 milligrams daily +81 milligram aspirin tablet daily for 3 weeks, then drop the aspirin and stay on clopidogrel alone. 2. Control blood pressure aiming for a mean arterial pressure of 95-100. 3. Continue Zetia for dyslipidemia 4. PT, OT, and speech therapy consults. She would be a rehabilitation hospital candidate when she is stable medically. 5. There is no need for additional neurologic testing or treatment at this time. I could do EMG and nerve conduction studies of the legs, if necessary/indicated, as an outpatient to evaluate her lumbar spinal stenosis. Overall, I spent a total of 35 minutes with this case including review of records, review of MRI films, direct evaluation patient bedside, discussion the case with the patient at bedside, Dr. Correia, and Agueda EARL, including differential diagnosis and treatment options. Subjective Patient is doing worse today compared to yesterday and the day before. She is weaker on the right side and has a left facial droop as well. She does not have pain or headache. Echocardiogram was unremarkable. CBC showed mild anemia. Chem profile showed elevated BUN and creatinine but these are improved compared to previous studies. MRI of the brain July 18 showed no change with the previous pontine stroke. I reviewed these films. Blood pressure is 151/82. Physical Exam Physical Exam: She is awake and alert. Speech is very dysarthric. She can read and name easily. She does not have an expressive or receptive aphasia. Mood is down and she is tearful. Affect is appropriate. She seems oriented head is otherwise pleasant and cooperative. She has a left facial droop at the corner of the mouth. Extraocular eye muscles are intact without nystagmus. Tongue is midline although the tip points a little bit to the right. She is flaccid in the right upper extremity with no voluntary movement. The right lower extremity is weak at 2-3/5 proximally and 0-1-5 distally. The left side is 5/5 diffusely. Toes are upgoing to plantar stimulation on the right and downgoing on the left. Results & Data Vital Signs (Past 12 Hours) Vital Signs Temp Pulse Resp BP Pulse Ox 07/19/19 08:13 37.1 C 60 19 151/82 H 96 07/19/19 03:35 36.8 C 60 18 180/72 H 97 07/18/19 23:11 37 C 65 18 185/71 H 95 PG Care Time/CCT Total # of Minutes Spent Total Time Spent with Patient: Total time spent is greater than 50% in coordination of care (as documented) at patient's floor/unit and/or counseling patient:
[2019-07-19] MEDS ORDERED: BISACODYL 10 MG SUPP PR STA (10:06)
--- NOTE | 2019-07-19 11:11 | Discharge Summary ---
Date of Service July 19, 2019 Admission Exam Per Admitting Provider Ms Olvera presents today for weakness, slurred speech and facial droop. She initially presented to the ED on 07/14 due to fall following sudden weakness in her legs. She was discharged to [facility] for rehab from the ED. Per patient's son who is bedside, he noticed some slurred speech at that time in the ED which appeared to be worsening yesterday along with some facial droop. She noticed during therapy at [facility] yesterday that she was having a difficult time holding herself up with the walker with the right arm. Today her son felt she should come back to the emergency department for worsening symptoms. She reports some baseline sob, lower back pain, and dizziness at times. She denies, chest pain, palpitations, nausea, vomiting, changes in bowels, dysuria or frequency. Ms. Olvera has been having ongoing lower back pain. She denies any loss of bowel or bladder or saddle anesthesia. Principal Diagnosis CVA Discharge Exam Constitutional WD/WN, vitals as above Respiratory normal respiratory effort, lungs clear to auscultation Cardiovascular RRR, no murmur, no edema Gastrointestinal (Abdomen) Inspection/Auscultation: abdomen normal to inspection and normal bowel sounds; abdomen not distended Percussion/Palpation: abdomen soft; abdomen nontender Musculoskeletal right arm weakness, bilateral lower extremity weakness, normal strength left arm Skin no rashes, warm and dry Neurologic awake weakness as above, right facial droop, right tongue deviation, other breeder service technician intact, dysarthria worsening over the last two days re Psychiatric Orientation: alert and oriented x 3 Affect: + tearful affect Discharge Data Allergies Allergy/AdvReac Type Severity Reaction Status Date / Time adhesive tape Allergy Severe BLISTER Verified 07/16/19 18:53 SKIN doxycycline Allergy Severe trouble Verified 07/16/19 18:53 breathing Iodinated Contrast Media Allergy Severe ON PT LIST Verified 07/16/19 18:53 [Iodinated Contrast- Oral and IV Dye] cortisone Allergy Intermediate SWELLING, Verified 07/16/19 18:53 CHILLS, SHAKINESS levofloxacin Allergy Intermediate SHORTNESS Verified 07/16/19 18:53 OF BREATH cephalexin Allergy Mild RASH Verified 07/16/19 18:53 latex Allergy Mild Redness of Verified 07/16/19 18:53 Skin acetaminophen Allergy Unknown UNKNOWN Verified 07/16/19 18:53 Aminoglycosides Allergy Unknown ON PT LIST Verified 07/16/19 18:53 atorvastatin Allergy Unknown ON PT LIST Verified 07/16/19 18:53 bacitracin Allergy Unknown ON PT LIST Verified 07/16/19 18:53 benzonatate Allergy Unknown ON PT LIST Verified 07/16/19 18:53 febuxostat Allergy Unknown ON PT LIST Verified 07/16/19 18:53 indomethacin Allergy Unknown ON PT LIST Verified 07/16/19 18:53 methylprednisolone Allergy Unknown ON PT LIST Verified 07/16/19 18:53 neomycin Allergy Unknown ON PT LIST Verified 07/16/19 18:53 oxycodone Allergy Unknown ON PT LIST Verified 07/16/19 18:53 polymyxin B Allergy Unknown ON PT LIST Verified 07/16/19 18:53 prednisone Allergy Unknown ON PT LIST Verified 07/16/19 18:53 rosuvastatin Allergy Unknown ON PT LIST Verified 07/16/19 18:53 [id number]-[id number]-Ixz Reductase Allergy Unknown ON PT LIST Verified 07/16/19 18:53 Inhibitor azithromycin AdvReac Intermediate Flushed Verified 07/16/19 18:53 Skin diphenhydramine AdvReac Intermediate Short of Verified 07/16/19 18:53 [From Benadryl] Breath, Puffiness, Redness Consultations 07/16/19 17:38 ED Decision to Admit Stat 07/16/19 21:20 Consult Case Management - Discharge Planning Routine Consult Neurology Routine Ordered Studies 07/17/19 00:00 US carotid doppler BI Routine US venous doppler LE BI Routine 07/17/19 01:23 MR angio head wo con Routine MR brain wo con Routine 07/18/19 12:51 MR brain wo con Routine Hospital Course (1) CVA (cerebral vascular accident): MRI showing left central pontine acute/subacute infarct 16mm. Likely began 07/15 as that was when patient developed right arm weakness MRA with severe multifocal stenosis of the right vertebral and left posterior cerebral arteries Carotid doppler without significant stenosis Trop wnl, echo with normal EF, no WMA, no shunt PT/OT, speech A1c 7.5% Consulted neurology, they recommend: -Continue clopidogrel 75 milligrams daily +80 1 milligram aspirin tablet da ochoa for 3 weeks then drop the aspirin and stay on clopidogrel alone. - Control blood pressure a meeting for a mean arterial pressure of 95-100. - Treat the patient's dyslipidemia with another medication besides statin (in lieu of her allergies). -There is no need for additional neurologic testing or treatment at this time. Could do EMG and nerve conduction studies of the legs, if necessary/ivania cated, as an outpatient 07/18 - worsening right arm weakness and dysarthria. Repeat MRI - no change to stroke, no bleeding or midline shift. Likely worsening symptoms are due to edema. Discussed with Dr. Duffy - agrees with getting patient to rehab today. No steroids - patient is allergic to them and there is not much evidence for their usefulness in ischemic stroke (2) Hypertension: continue olmesartan, amlodipine, metoprolol and furosemide Increased amlodipine to 10 mg as patient's pressures are elevated - sbp 180s at times. Will need to continue adjusting her medication regimen to better control her blood pressures (3) GERD (gastroesophageal reflux disease): continue pantoprazole (4) Chronic kidney disease, stage 4 (severe): baseline creat around 2 - 2.5 avoid nephrotoxins where possible (5) Osteoarthritis: Patient lumbar MRI 07/14 showing moderate multilevel degenerative disc disease and facet arthrosis. Mild multilevel central canal and neural foraminal stenosis. PT/OT (6) Chronic obstructive pulmonary disease: wears 2L NC at night does not appear to be on inhalers (7) Hyperlipidemia: Triglycerides 238, LDL 140, HDL 37 allergies to statins - anaphylactic reaction Initiated Zetia and fish oil. Repatha pricing checked - will be quite expensive for patient. Advised her to discuss with her pcp in follow up. (8) DVT prophylaxis: heparin subq bid SCDs Code: DNR Total Time Total Time Spent Total Time Spent (In Minutes): greater than 30 minutes Discharge Plan Discharge Items Patient Disposition: Transfer Inpatient Rehab Fac Reason For Visit: CVA Discharge Diagnosis: CVA Activity: Resume your previous activity Non-emergency contact: Primary Care Provider Call non-emergency contact if: you have any medication questions and your symptoms worsen Follow-up/Referrals: Elbert Birmingham PA-C [Primary Care Provider] - Diet: Heart Healthy Addtl Attending Provider Instructions: Stroke: An MRI showed a left central pontine acute/subacute infarct measuring 16mm at the time of your admission that had likely started the day or two beforehand based on your description of symptoms. Imaging of the blood vessels of your brain (MRA) showed severe multifocal stenosis of the right vertebral and left posterior cerebral arteries. Carotid (major arteries in the neck) doppler was without significant stenosis. An echo cardiogram showed a normal ejection fracti on (an indication of how well the heart is pumping blood out to the body) and no sign of injury to the heart muscle such as a heart attack, or opening between heart chambers that would be a source for clot to form that could lead to stroke. -Continue clopidogrel 75 milligrams daily and 81 milligram aspirin tablet daily for 3 weeks then drop the aspirin and stay on clopidogrel alone. - Control blood pressure - your amlodipine has been increased to 10 mg daily. You will likely need further adjustments to find the right medication balance to keep your blood pressures under better control. Please work with [facility] and then your primary care provider on this. - Because you are allergic to statins you have been started on Zetia for your cholesterol. Elevated cholesterol plays a role in stroke risk. Please work with your primary care provider on ongoing lipid management -There is no need for additional neurologic testing or treatment at this time. Consider making an appointment with Dr. Duffy for an EMG and nerve conduction studies of the legs as an outpatient Your A1c was 7.5% - This is an indication of your average blood sugars for 3 months. This is an acceptable value for your age range. You should follow up with your primary care provider Hypertension: - continue olmesartan, amlodipine increased to 10 mg from 2.5, metoprolol and furosemide - please continue working with your providers to adjust the medications to better control your blood pressure GERD (gastroesophageal reflux disease): -continue pantoprazole Chronic kidney disease, stage 4: baseline creatinine is 2- 2.5 Osteoarthritis: You had a lumbar spine MRI 07/14 showing arthritis and mild narrowing of the canals that your spinal cord runs through. You may want to consider seeing pain management if you have not in the past if you are not finding relief of your back pain with therapy - continue physical therapy Chronic obstructive pulmonary disease: - continue wearing 2 liters nasal cannula at night Hyperlipidemia: Triglycerides 238, LDL 140, HDL 37 - as discussed above, initiated on Zetia and fish oil Depression and pain - Continue duloxetine - this medication can take 3 weeks or so to start having an effect. You can titrate the dosage up with your primary care provider if you need to. Pending Studies at Discharge: No Stand-Alone Forms: My [facility] Skilled Items Patient informed of condition?: Yes DNR: Yes Discharge Level of Care: Acute rehab Communicable Disease: No Discharge Prognosis: Stable Lines: None Urinary Catheter: No Medications and DC Order Prescriptions: New clopidogrel 75 mg Tablet 75 mg PO QAM Qty: 30 RF: 0 furosemide 20 mg Tablet 20 mg PO QAM Qty: 30 RF: 0 Fish Oil 340-1,000 mg Capsule 1 g PO BID Qty: 60 RF: 0 ezetimibe [Zetia] 10 mg Tablet 10 mg PO QAM Qty: 30 RF: 0 Continued pantoprazole 40 mg tablet,delayed release (DR/EC) 40 mg PO QAM Qty: 90 RF: 1 metoprolol tartrate 25 mg tablet 12.5 mg PO BID Qty: 60 RF: 5 lisinopril 10 mg tablet 10 mg PO QAM Qty: 30 RF: 5 Centrum Silver 0.4-300-250 mg-mcg-mcg Tablet 1 tab PO DAILY RF: 0 polyethylene glycol 3350 [Miralax] 17 gram Powder In Packet 17 g PO DAILYBL PRN (Reason: Constipation) RF: 0 sennosides-docusate sodium [Senna with Docusate Sodium] 8.6-50 mg Tablet 1 tab-cap PO DAILYBL PRN (Reason: Constipation) RF: 0 acetaminophen [Tylenol Extra Strength] 500 mg Tablet 500 mg PO Q4 PRN (Reason: Pain) RF: 0 bisacodyl 10 mg Suppository 10 mg SC DAILY PRN (Reason: Constipation) RF: 0 docusate sodium 100 mg Tablet 100 mg PO BID RF: 0 duloxetine [Cymbalta] 20 mg capsule,delayed release(DR/EC) 20 mg PO DAILY RF: 0 isosorbide mononitrate 30 mg Tablet Extended Release 24 Hr 60 mg PO QAM RF: 0 aspirin 81 mg Tablet,Delayed Release (Dr/Ec) 81 mg PO QAM RF: 0 nitroglycerin [Nitrostat] 0.4 mg Tablet, Sublingual 0.4 mg sublingual DIRECTED PRN (Reason: Chest Pain) RF: 0 Changed amlodipine 2.5 mg Tablet 10 mg PO QAM Qty: 0 RF: 0 Discharge Orders: Discharge Order (Routine); Ordered 07/19/19 Ordered By: Agueda Manning Admission Data Admit Date/Time: 07/16/19 18:46 Attending Provider: Raf Correia Admit Provider: Junaid Wilson Primary Care Provider: Elbert Birmingham Other Providers: Agueda Manning ; Danilo Duffy III ; [facility]
[2019-07-19] MEDS ORDERED: STROKE PATIENT DISCHARGE STA (11:48)
[2019-07-19] MEDS: ACETAMINOPHEN 500 MG TAB PO PRN (12:52)
== END 2019-07-19 13:20 | DRG 65 ==
LOC: ED 16:23 → SUATTDRO 18:46 → 2S 18:46

== ENCOUNTER 2019-10-27 02:04 | Inpatient (IN) ==
[2019-10-27 02:32] LABS: Basophils # (auto) 0.07 K/uL (0-0.2); Basophils % (auto) 0.8 %; Eosinophils # (auto) 0.63 K/uL (0-0.5); Eosinophils % (auto) 6.8 %; Hematocrit (blood only) 38.6 % (37-47); Hemoglobin 13.1 g/dL (12.0-16.0); Immature Granulocytes # (auto) 0.03 K/uL (0.00-0.02); Immature Granulocytes % (auto) 0.3 %; Lymphocytes # (auto) 4.01 K/uL (1.2-3.4); Mean Corpuscular Hgb Conc 33.9 g/dL (32-36); Mean Corpuscular Volume 91.3 fL (80-100); Mean Platelet Volume 8.7 fL (7.4-10.4); Monocytes # (auto) 0.74 K/uL (0.11-0.59); Monocytes % (auto) 7.9 %; Neutrophils # (auto) 3.84 K/uL (1.4-6.5); Neutrophils % (auto) 41.2 %; Platelet Count 380 K/uL (130-400); RDW Coefficient of Variation 15.4 % (11.5-14.5); Red Blood Count 4.23 M/uL (4.2-5.4); White Blood Count 9.32 K/uL (4.8-10.8)
[2019-10-27 02:40] LABS: Albumin Level 2.4 gm/dl (3.4-5.0); BUN Creatinine Ratio 37.5 (10-20); Calcium 9.2 mg/dl (8.5-10.1); Creatinine Clr Calc Pharmacy 23.8 ml/min; Est GFR (African American) 28.3; Est GFR (Non-African American) 24.4; Potassium 3.1 mmol/L (3.5-5.1)
[2019-10-27 02:43] LABS: INR 1.1 (0.9-1.1); Partial Thromboplastin Ratio 0.8; Partial Thromboplastin Time 22.8 Seconds (21.0-31.0); Prothrombin Time 10.9 Seconds (9.0-12.0)
[2019-10-27 02:44] LABS: Albumin Globulin Ratio 0.5 (0.9-2); Bilirubin,Total 0.6 mg/dl (0.2-1); Globulin 4.5 gm/dl (2.5-4.0); Total Protein 6.9 gm/dl (6.4-8.2); Troponin I 0.025 ng/ml (0-0.045)
--- NOTE | 2019-10-27 04:13 | History & Physical Report ---
Date of Service October 27, 2019 Assessment & Plan (1) Substernal chest pain: Anastasia is a 84-year-old female with a past medical history of chronic kidney disease, glucose intolerance without diabetes, chronic cerebral ischemia, CVA, hyperlipidemia, CHF, GERD, osteoarthritis, and depression who is a resident of [facility] who presented with approximately 12 hours of sternal chest pain and several days of right shoulder pain after falling in his bed multiple times. Substernal chest pain ST changes appreciated in leads I, aVL, III. Similar changes were noted from 16 July 2019 EKG in leads III and possibly I, morphology in aVL is new. Right bundle becca block appreciated on both. No improvement following aspirin and nitro x4 administration. Patient is prominently tender to sternal palpation with detectable but negative initial troponin Trend troponin every 6 hours x2 additional. TTE pending. Morphine 2 mg IV every 30 minutes as needed Nitropaste 1 inch every 6 hours Anticoagulation deferred Continue metoprolol 12.5 mg p.o. twice daily Admit to PCU Follow clinically. Patient and her daughter report they would not want "heroic interventions "but would like more information before deciding what to do if her symptoms were cardiac in origin Hypokalemia IVF M LR +20 K at 70 cc/h Potassium p.o. 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 Titrate if needed. Hyperlipidemia Continue Zetia 10 mg every morning Statin intolerant Type 2 diabetes mellitus Medical history reports patient on sliding scale insulin at [facility], patient and her daughter deny this. 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: (3) Stroke: (4) Chronic obstructive pulmonary disease: (5) Sleep apnea: (6) Hypertension: (7) Hyperlipidemia: (8) Congestive heart failure: (9) History of depression: (10) Borderline diabetes: (11) GERD (gastroesophageal reflux disease): (12) Chronic kidney disease, stage 4 (severe): History of Present Illness Chief Complaint: Shoulder pain, substernal chest pain Primary Care Provider: [facility] Anastasia is a 84-year-old female with a past medical history of chronic kidney disease, glucose intolerance without diabetes, chronic cerebral ischemia, CVA, hyperlipidemia, CHF, GERD, osteoarthritis, and depression who is a resident of [facility] who presented with approximately 12 hours of sternal chest pain and several days of right shoulder pain after falling in his bed multiple times. She reports her shoulder pain has been going on for 3 days after she sustained multiple falls when she rolled out of bed. She is paralyzed on her right side from her stroke. This afternoon around 4-5 o'clock she also developed substernal chest pain which was not associated with diaphoresis or shortness of breath. She has had intermittent lightheadedness and dizziness for 1 week. Her chest pain was not improved with aspirin or 4 doses of nitro. She has had mild nausea for the past week, few episodes of emesis. She is currently breathing on 2 L of nasal cannula and is not short of breath, she is on baseline 2 L. She reports she has congestive heart failure which causes swelling in her extremities and for which she is on Lasix, last echo in 06/2019 showed an EF of 55 to 60% with mild to moderate aortic regurgitation and mild concentric LVH. Allergies: Extensive. See EMR Past medical history: Reviewed. Includes prediabetes, CKD, chronic cerebral ischemia, HLD, CVA, CHF, GERD, OA, depression Past surgical history: Cholecystectomy, dental extraction, hysterectomy with concepción pingo-oophorectomy Family history: Diabetes, PR in her father. EMR reviewed. Social history: No current or former tobacco use. No current or former alcohol use. No recreational drug use. Presents from [facility]. CODE STATUS: DNR/DNI Allergies Allergy/AdvReac Type Severity Reaction Status Date / Time adhesive tape Allergy Severe BLISTER Verified 10/27/19 03:21 SKIN doxycycline Allergy Severe trouble Verified 10/27/19 03:21 breathing Iodinated Contrast Media Allergy Severe ON PT LIST Verified 10/27/19 03:21 [Iodinated Contrast- Oral and IV Dye] cortisone Allergy Intermediate SWELLING, Verified 10/27/19 03:21 CHILLS, SHAKINESS levofloxacin Allergy Intermediate SHORTNESS Verified 10/27/19 03:21 OF BREATH cephalexin Allergy Mild RASH Verified 10/27/19 03:21 latex Allergy Mild Redness of Verified 10/27/19 03:21 Skin acetaminophen Allergy Unknown UNKNOWN Verified 10/27/19 03:21 Aminoglycosides Allergy Unknown ON PT LIST Verified 10/27/19 03:21 atorvastatin Allergy Unknown ON PT LIST Verified 10/27/19 03:21 bacitracin Allergy Unknown ON PT LIST Verified 10/27/19 03:21 benzonatate Allergy Unknown ON PT LIST Verified 10/27/19 03:21 febuxostat Allergy Unknown ON PT LIST Verified 10/27/19 03:21 indomethacin Allergy Unknown ON PT LIST Verified 10/27/19 03:21 methylprednisolone Allergy Unknown ON PT LIST Verified 10/27/19 03:21 neomycin Allergy Unknown ON PT LIST Verified 10/27/19 03:21 oxycodone Allergy Unknown ON PT LIST Verified 10/27/19 03:21 polymyxin B Allergy Unknown ON PT LIST Verified 10/27/19 03:21 prednisone Allergy Unknown ON PT LIST Verified 10/27/19 03:21 rosuvastatin Allergy Unknown ON PT LIST Verified 10/27/19 03:21 Caxwkrf-Egr-Mrd Reductase Allergy Unknown ON PT LIST Verified 10/27/19 03:21 Inhibitor azithromycin AdvReac Intermediate Flushed Verified 10/27/19 03:21 Skin diphenhydramine AdvReac Intermediate Short of Verified 10/27/19 03:21 [From Benadryl] Breath, Puffiness, Redness Home Medications Home Medications Medication Instructions Recorded Confirmed Type isosorbide mononitrate 60 mg PO QAM 01/29/19 10/27/19 History nitroglycerin [Nitrostat] 0.4 mg SUBLINGUAL DIRECTED PRN 01/29/19 10/27/19 History metoprolol tartrate 25 mg tablet 12.5 mg PO BID #60 tab 05/16/19 10/27/19 Rx acetaminophen [Tylenol Extra 1,000 mg PO Q12 07/16/19 10/27/19 History Strength] bisacodyl 10 mg W[place] DAILY PRN 07/16/19 10/27/19 History clopidogrel 75 mg PO QAM #30 tab 07/19/19 10/27/19 Rx ezetimibe [Zetia] 10 mg PO QAM #30 tab 07/19/19 10/27/19 Rx omega-3 fatty acids-fish oil [Fish 1 g PO BID #60 cap 07/19/19 10/27/19 Rx Oil] acetaminophen 1,000 mg PO UD PRN MDD 3gm/24hr 10/27/19 10/27/19 History amlodipine 10 mg PO DAILY 10/27/19 10/27/19 History carboxymethylcellulose sodium 2 drp OPHTHALMIC (EYE) BID PRN 10/27/19 10/27/19 History [Refresh Tears] furosemide [Lasix] 40 mg PO 3XWK 10/27/19 10/27/19 History gabapentin 100 mg PO TID 10/27/19 10/27/19 History hydromorphone [Dilaudid] 2 mg PO Q12 PRN 10/27/19 10/27/19 History insulin lispro [Humalog U-100 1 sliding scale dose SUBCUT 10/27/19 10/27/19 History Insulin] USEASDIRECTD menthol-zinc oxide [Calmoseptine] 1 applic TOPICAL BID 10/27/19 10/27/19 History metolazone 5 mg PO 3XWK 10/27/19 10/27/19 History potassium chloride 20 meq PO DAILY 10/27/19 10/27/19 History tramadol 50 mg PO Q12 PRN 10/27/19 10/27/19 History Past Med/Surg History Medical History Borderline diabetes Chronic kidney disease, stage 4 (severe) follows w/ dr. mosley Chronic obstructive pulmonary disease Congestive heart failure Deep vein thrombosis (Resolved) > 10 years ago - LLE after injury - treated w/ AC therapy Diverticular disease GERD (gastroesophageal reflux disease) Hearing deficit EKWOK History of anxiety History of benign breast biopsy History of depression History of stomach ulcers Hyperlipidemia Hypertension Lumbar degenerative disc disease (Chronic) On home oxygen therapy 2 lpm @ night. daytime PRN. Osteoarthritis Osteoporosis Sleep apnea does not tolerate CPAP - wears oxygen at night 2 lpm Surgical History History of cardiac cath 10 years ago - [facility] - - no stents/angioplasty - follows w/ Dr. Rodriguez History of cataract surgery LEFT on 02/18/19: was given 1mg of Versed History of cholecystectomy History of colonoscopy History of esophagogastroduodenoscopy (EGD) History of tonsillectomy History of tooth extraction History of total abdominal hysterectomy and bilateral salpingo-oophorectomy Removal of ovarian cyst (Resolved 08/01/12) Family History Mother , of liver disease Family history of diabetes mellitus Brother Family history of diabetes mellitus Daughter Family history of diabetes mellitus Sister Family history of diabetes mellitus Father , of an PR Myocardial infarction Social History Preferred Language: Occitan Communication Ability: Effective Buttonhole Maker Required: No Beliefs That Will Affect Care: None marital status: / Current Living Situation: Longterm Current Living Situation Comment: family checks in on pt daily current occupational status: retired current occupation: Retired in the late 80s Other Information That Helps Us Care for You: No other: 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 NAD. Cooperative. HEENT: Atraumatic, normocephalic. Oral mucosa very dry, dental caries present Pulm: CTAB A&P. Trace bibasilar crackles,-wheezes, -rales, -rhonchi. Symmetrical chest rise. No increase in work of breathing. No respiratory distress. Cardiac: Trace systolic murmur, -rg. Radial pulses intact and symmetrical. Abdominal: Nontender, nondistended, soft. BS present. CN II: Visual mclain are full to confrontation. Pupils are equal and react to light and accomidation. Visual acuity grossly intact. No diplopia elicited on right or left gaze. CN III, IV, : At primary gaze, there is no eye deviation. EoM intact without nystagmus. No visual field cuts. CN V: Facial sensation is intact to soft touch in all 3 divisions bilaterally. CN VII: Mild resting facial asymmetry CN VII: Hearing is grossly intact. CN IX, X: Palate elevates symmetrically. some dysarthria, at normal baseline per patient and her daughter. CN XI: Head turning and shoulder shrug are intact CN XII: Patient is unable to protrude tongue very far, appears to protrudes midline. Sensory: Light touch, pinprick intact in upper and lower extremities, qualitatively decreased on the right Strength: RUE: Shoulder flexion/extension/internal rotation/external rotation, elbow flexion/extension, finger flexion/extension, financial center manager strength, interosseous 0/5. Flaccid. LUE: Shoulder flexion/extension/internal rotation/external rotation, elbow flexion/extension, finger flexion/extension, financial center manager strength, interosseous 4/5 RLE: Hip flexion, knee flexion/extension, ankle plantar flexion/dorsiflexion 0/5. Flaccid. LLE: Hip flexion, knee flexion/extension, ankle plantar flexion/[id number] Results & Data Vital Signs (Past 12 Hours) Vital Signs Temp Pulse Pulse Resp BP BP Pulse Ox 10/27/19 03:43 77 20 153/84 H 98 10/27/19 02:32 98 10/27/19 02:31 98 10/27/19 02:12 36.4 C L 80 20 167/77 H 96 Supervising Physician Co-Signing Physician Notes Attending addendum: I have physically seen this patient, have supervised the medical residents activities, and agree with the H&P unless as otherwise noted. Assessment and Plan: Substernal chest pain- The patient will be admitted to telemetry for serial cardiac enzymes, serial EKG's, cardiac rhythm monitoring and a 2-D echocardiogram with Dopplers. EKG as noted. Metoprolol tartrate 12.5 mg p.o. twice daily Nitropaste 1 inch to anterior chest wall every 6 hours On clopidogrel 75 mg daily. Morphine sulfate 2 mg IV every 30 minutes as needed. Potassium 3.1 upon admission, replaced orally as noted. Consult cardiology Remainder orders and notations as noted. Resident Activity Tracking Resident Involvement: Resident Care Provided Care Provided: Adult [facility] (1) Stroke CVA mechanism: unspecified Qualified Code(s): I63.9 - Cerebral infarction, unspecified
[2019-10-27] MEDS: MoRPHine SULFATE 2 MG/ML CARP IV PRN ×2 (04:59→07:49)
[2019-10-27] MEDS: NITROGLYCERIN 2% OINTMENT 30GM TUBE EXT SCH ×4 (05:03→23:41)
[2019-10-27] MEDS ORDERED: ONDANSETRON INJ 2 MG/ML 2 ML VIAL IV STA (05:35)
[2019-10-27] MEDS ORDERED: bisacodyL 10 MG SUPP PR PRN (06:49)
[2019-10-27] MEDS ORDERED: NITROGLYCERIN SL 0.4 MG/TAB TAB SL PRN (06:49)
[2019-10-27] MEDS ORDERED: ACETAMINOPHEN 500 MG TAB PO PRN (06:49)
[2019-10-27] MEDS ORDERED: FAMOTIDINE 20MG/5ML IV PUSH IV STA (06:49)
[2019-10-27] MEDS ORDERED: FAMOTIDINE 20 MG in SYRINGE 3 ML IV ONE (07:00)
--- NOTE | 2019-10-27 07:23 | XRay Report ---
XR chest 1V portable CLINICAL HISTORY: Chest Pain COMPARISON STUDY: Chest radiograph July 14, 2019. FINDINGS: Lung volumes are normal. Lungs are clear. There is no pneumothorax or pleural effusion. Car diac size is normal. Mediastinal contours are normal. There is no evidence for pulmonary edema. IMPRESSION: No acute cardiopulmonary findings. ACT 112: Negative or not required by law. Electronically signed by: Mahad Ribeiro M.D. 10/27/2019 7:22 AM
[2019-10-27] MEDS: NSS + 20MEQ KCL 20 MEQ/1,000 ML BAG IV SCH ×2 (07:28→20:35)
[2019-10-27] MEDS: HEPARIN SOD 5,000 UNIT/0.5 ML VIAL SQ SCH ×2 (07:37→20:34)
[2019-10-27] MEDS: PANTOprazole 40 MG TAB PO SCH (07:38)
[2019-10-27] MEDS: ACETAMINOPHEN 500 MG TAB PO SCH ×2 (07:38→20:34)
[2019-10-27] MEDS: CLOPIDOGREL BISULFATE 75 MG TAB PO SCH (07:39)
[2019-10-27] MEDS: METOPROLOL TARTRATE 25 MG TAB PO SCH ×2 (07:39→20:34)
[2019-10-27] MEDS: POTASSIUM CHLORIDE 20 MEQ TABCR PO SCH (07:39)
[2019-10-27] MEDS: GABAPENTIN 100 MG CAP PO SCH ×3 (07:39→20:34)
[2019-10-27] MEDS: ISOSORBIDE MONO EXTENDED REL 60 MG TABCR PO SCH (07:40)
[2019-10-27] MEDS: EZETIMIBE 10 MG TABLET PO SCH (07:40)
[2019-10-27] MEDS: AMLODIPINE BESYLATE 5 MG TAB PO SCH (07:40)
--- NOTE | 2019-10-27 08:10 | Electrocardiogram Report ---
Test Reason : Blood Pressure : / mmHG Vent. Rate : 081 BPM Atrial Rate : 081 BPM P-R Int : 206 ms QRS Dur : 122 ms QT Int : 456 ms P-R-T Axes : 076 -27 023 degrees QTc Int : 529 ms Normal sinus rhythm Right bundle branch block Possible Old Inferior infarct Abnormal ECG When compared with ECG of 16-JUL-2019 17:02, Right bundle branch block is no longer intermittent Borderline criteria for Anterior infarct are no longer Present Confirmed by William Arteaga ([id number]) on 10/27/2019 8:10:03 AM Referred By: [facility] Confirmed By:William Arteaga
--- NOTE | 2019-10-27 09:59 | XRay Report ---
XR shoulder RT min 2V routine CLINICAL HISTORY: Pain, fell out of bed 4 times COMPARISON: Chest radiograph July 14, 2019. FINDINGS: Alignment of the right shoulder is anatomic. There is no acute fracture. There is severe o steoarthritis of the acromioclavicular joint and moderate osteoarthritis of the femoral joint. IMPRESSION: 1. No acute fracture or dislocation within the right shoulder. 2. Moderate to severe right shoulder osteoarthritis. ACT 112: Negative or not required by law. Electronically signed by: Mahad Ribeiro M.D. 10/27/2019 9:58 AM
--- NOTE | 2019-10-27 14:03 | History & Physical Bridge Note ---
Date of Service October 27, 2019 History & Physical Bridge Note I have examined the patient, reviewed the History & Physical and in the interval since the performance of the History & Physical I have noted the following changes of clinical significance: troponin negative x 3 sets no longer has chest pain echo with EF of 65% and no wall motion abnormalities c/o pain in right shoulder, ordered x-ray right shoulder, shows osteoarthritis, no acute fracture or dislocation she has hemiplegia on right side which is chronic from prior stroke recommend keeping patient for today, just admitted early this morning check morning labs, can likely return to [facility] tomorrow since she is a resident there
--- NOTE | 2019-10-27 23:12 | Emergency Department Note ---
Entered by Christen Blake acting as a scribe for History of Present Illness General Chief complaint: Chest Pain Stated complaint: CHEST PAIN Time Seen by Provider: 10/27/19 02:07 Source: patient History of Present Illness Onset (ago): hour(s) less than 1 Location: chest Pain Consistency: + constant Maximum Pain Intensity: 10 Current Pain Intensity: 10 Relieved By: + none Exacerbated By: + none Associated symptoms: + denies other symptoms (denies abdominal pain and bowel issues ), + chest pain and + shortness of breath Treatments prior to arrival: aspirin and other (Nitro, Fentanyl) The patient is a 84 year old female who presents to the Emergency Room with complaints of chest pain that occurred tonight. The patient initially complained of chest pain radiating down her right arm. She was given 3 nitro at [facility] which gave no relief. EMS gave 1 additional nitro with no change. She was then given 50 micrograms of Fentanyl and 324 mg of Aspirin. The patient has never had pain like this before, and states that it woke her up from her sleep. The patient notes that she felt short of breath as well. She was feeling at baseline before she went to bed tonight. The patient denies abdominal pain and bowel issues. The patient suffered from a stroke a few months ago. Home Medications Home Medications Medication Instructions Recorded Confirmed Type isosorbide mononitrate 60 mg PO QAM 01/29/19 10/27/19 History nitroglycerin [Nitrostat] 0.4 mg SUBLINGUAL DIRECTED PRN 01/29/19 10/27/19 History metoprolol tartrate 25 mg tablet 12.5 mg PO BID #60 tab 05/16/19 10/27/19 Rx acetaminophen [Tylenol Extra 1,000 mg PO Q12 07/16/19 10/27/19 History Strength] bisacodyl 10 mg RI DAILY PRN 07/16/19 10/27/19 History clopidogrel 75 mg PO QAM #30 tab 07/19/19 10/27/19 Rx ezetimibe [Zetia] 10 mg PO QAM #30 tab 07/19/19 10/27/19 Rx omega-3 fatty acids-fish oil [Fish 1 g PO BID #60 cap 07/19/19 10/27/19 Rx Oil] acetaminophen 1,000 mg PO UD PRN MDD 3gm/24hr 10/27/19 10/27/19 History amlodipine 10 mg PO DAILY 10/27/19 10/27/19 History carboxymethylcellulose sodium 2 drp OPHTHALMIC (EYE) BID PRN 10/27/19 10/27/19 History [Refresh Tears] furosemide [Lasix] 40 mg PO 3XWK 10/27/19 10/27/19 History gabapentin 100 mg PO TID 10/27/19 10/27/19 History hydromorphone [Dilaudid] 2 mg PO Q12 PRN 10/27/19 10/27/19 History insulin lispro [Humalog U-100 1 sliding scale dose SUBCUT 10/27/19 10/27/19 History Insulin] USEASDIRECTD menthol-zinc oxide [Calmoseptine] 1 applic TOPICAL BID 10/27/19 10/27/19 History metolazone 5 mg PO 3XWK 10/27/19 10/27/19 History potassium chloride 20 meq PO DAILY 10/27/19 10/27/19 History tramadol 50 mg PO Q12 PRN 10/27/19 10/27/19 History Allergies Allergy/AdvReac Type Severity Reaction Status Date / Time adhesive tape Allergy Severe BLISTER Verified 10/27/19 03:21 SKIN doxycycline Allergy Severe trouble Verified 10/27/19 03:21 breathing Iodinated Contrast Media Allergy Severe ON PT LIST Verified 10/27/19 03:21 [Iodinated Contrast- Oral and IV Dye] cortisone Allergy Intermediate SWELLING, Verified 10/27/19 03:21 CHILLS, SHAKINESS levofloxacin Allergy Intermediate SHORTNESS Verified 10/27/19 03:21 OF BREATH cephalexin Allergy Mild RASH Verified 10/27/19 03:21 latex Allergy Mild Redness of Verified 10/27/19 03:21 Skin acetaminophen Allergy Unknown UNKNOWN Verified 10/27/19 03:21 Aminoglycosides Allergy Unknown ON PT LIST Verified 10/27/19 03:21 atorvastatin Allergy Unknown ON PT LIST Verified 10/27/19 03:21 bacitracin Allergy Unknown ON PT LIST Verified 10/27/19 03:21 benzonatate Allergy Unknown ON PT LIST Verified 10/27/19 03:21 febuxostat Allergy Unknown ON PT LIST Verified 10/27/19 03:21 indomethacin Allergy Unknown ON PT LIST Verified 10/27/19 03:21 methylprednisolone Allergy Unknown ON PT LIST Verified 10/27/19 03:21 neomycin Allergy Unknown ON PT LIST Verified 10/27/19 03:21 oxycodone Allergy Unknown ON PT LIST Verified 10/27/19 03:21 polymyxin B Allergy Unknown ON PT LIST Verified 10/27/19 03:21 prednisone Allergy Unknown ON PT LIST Verified 10/27/19 03:21 rosuvastatin Allergy Unknown ON PT LIST Verified 10/27/19 03:21 Zvoxldd-Uqw-Yqu Reductase Allergy Unknown ON PT LIST Verified 10/27/19 03:21 Inhibitor azithromycin AdvReac Intermediate Flushed Verified 10/27/19 03:21 Skin diphenhydramine AdvReac Intermediate Short of Verified 10/27/19 03:21 [From Benadryl] Breath, Puffiness, Redness Past Med/Surg History Medical History Borderline diabetes Chronic kidney disease, stage 4 (severe) follows w/ dr. mosley Chronic obstructive pulmonary disease Congestive heart failure Deep vein thrombosis (Resolved) > 10 years ago - LLE after injury - treated w/ AC therapy Diverticular disease GERD (gastroesophageal reflux disease) Hearing deficit [place] History of anxiety History of benign breast biopsy History of depression History of stomach ulcers Hyperlipidemia Hypertension Lumbar degenerative disc disease (Chronic) On home oxygen therapy 2 lpm @ night. daytime PRN. Osteoarthritis Osteoporosis Sleep apnea does not tolerate CPAP - wears oxygen at night 2 lpm Surgical History History of cardiac cath 10 years ago - [facility] - - no stents/angioplasty - follows w/ Dr. Rodriguez History of cataract surgery LEFT on 02/18/19: was given 1mg of Versed History of cholecystectomy History of colonoscopy History of esophagogastroduodenoscopy (EGD) History of tonsillectomy History of tooth extraction History of total abdominal hysterectomy and bilateral salpingo-oophorectomy Removal of ovarian cyst (Resolved 08/01/12) Family History Mother , of liver disease Family history of diabetes mellitus Brother Family history of diabetes mellitus Daughter Family history of diabetes mellitus Sister Family history of diabetes mellitus Father , of an [place] Myocardial infarction Social History (Reviewed 10/27/19 @ 02:26 by Christen Fagan Preferred Language: Iranian Communication Ability: Effective Financial Services Technician Required: No Beliefs That Will Affect Care: None marital status: / Current Living Situation: Residential Current Living Situation Comment: family checks in on pt daily current occupational status: retired current occupation: Retired in the late 80s Other Information That Helps Us Care for You: No other: 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 and A total of 10 systems reviewed and were otherwise negative Physical Exam Vital Signs Vital Signs - 24 hr 10/27/19 02:12 10/27/19 02:31 10/27/19 02:32 Temperature 36.4 C L Temperature Source Oral Pulse Rate 80 Pulse Rate [Right Finger] Pulse Rhythm Regular Pulse Strength Normal Respiratory Rate 20 Respiratory Depth Normal Blood Pressure 167/77 H Blood Pressure [Right Arm] Blood Pressure Mean 107 Blood Pressure Mean [Right Arm] Blood Pressure Position Lying Blood Pressure Position [Right Arm] Pulse Oximetry 96 98 98 Oxygen Delivery Method Nasal Cannula Nasal Cannula Nasal Cannula Oxygen Flow Rate 2 2 2 Sepsis Recent Fever Within 48 Hours No Sepsis New/Unexplained Change in Mental Status No Sepsis Action Taken by Nursing No Action Required 10/27/19 03:43 10/27/19 05:06 10/27/19 05:35 Temperature Temperature Source Pulse Rate Pulse Rate [Right Finger] 77 70 67 Pulse Rhythm Pulse Strength Respiratory Rate 20 18 16 Respiratory Depth Normal Normal Normal Blood Pressure Blood Pressure [Right Arm] 153/84 H 158/79 H 169/87 H Blood Pressure Mean Blood Pressure Mean [Right Arm] 107 105 114 Blood Pressure Position Blood Pressure Position [Right Arm] Lying Lying Lying Pulse Oximetry 98 98 98 Oxygen Delivery Method Nasal Cannula Nasal Cannula Nasal Cannula Oxygen Flow Rate 2 2 2 Sepsis Recent Fever Within 48 Hours Sepsis New/Unexplained Change in Mental Status Sepsis Action Taken by Nursing HEENT: Head - normocephalic and atraumatic Pupils are equal, round, and reactive to light. Extraocular eye muscles are intact, and sclera are anicteric. Nose - moist nasal mucosa without discharge. Mouth - dry buccal mucosa. Oropharynx is nonerythematous and there is no tonsillar exudate or edema noted. Neck: Supple; no JVD, nuchal rigidity, cervical lymphadenopathy. Heart: Regular rate and rhythm. There is a normal S1 and S2 with no murmurs, clicks, or gallops appreciated. Lungs: Clear to auscultation bilaterally with no wheezes, rales, or rhonchi. Abdomen: Soft, completely nontender, nondistended, with good bowel sounds. There are no palpable pulsatile masses or hepatosplenomegaly. There is no guarding, rigidity, or rebound noted. Extremities: Trace pedal edema bilateral lower extremities. No evidence of cyanosis or clubbing. There are easily palpable peripheral pulses. Skin: warm and dry with good turgor and no rashes. Course Course 0215: Past medical records reviewed. The patient was evaluated in room B10. A complete history and physical exam was performed. An order was placed for continuous cardiac monitoring. The patient remained in a normal sinus rhythm at 80. A twelve-lead EKG was obtained. She had a chest x-ray performed. 0319: The patient is now chest pain free. I discussed staying in the hospital for further evaluation. She was agreeable to this. 0326: Dr. Puri, [facility] hospitalist, agreed to take over care of the patient. The patient understands and is agreeable to the treatment plan. She will be evaluated for further treatment. Administered Medications Acetaminophen (Tylenol) 1,000 mg PO Q12 [facility] Stop: 11/26/19 08:59 Last Admin: 10/27/19 20:34 Dose: 1,000 mg Documented by: [id number] Admin: 10/27/19 07:38 Dose: 1,000 mg Documented by: [id number] Amlodipine Besylate (Norvasc) 10 mg PO DAILY [facility] Stop: 11/26/19 08:59 Last Admin: 10/27/19 07:40 Dose: 10 mg Documented by: [id number] Clopidogrel Bisulfate (Plavix) 75 mg PO QAM [facility] Stop: 11/26/19 08:59 Last Admin: 10/27/19 07:39 Dose: 75 mg Documented by: [id number] Ezetimibe (Zetia) 10 mg PO QAM [facility] Stop: 11/26/19 08:59 Last Admin: 10/27/19 07:40 Dose: 10 mg Documented by: [id number] Gabapentin (Neurontin) 100 mg PO TID [facility] Stop: 11/26/19 08:59 Last Admin: 10/27/19 20:34 Dose: 100 mg Documented by: [id number] Admin: 10/27/19 13:32 Dose: 100 mg Documented by: [id number] Admin: 10/27/19 07:39 Dose: 100 mg Documented by: [id number] Heparin Sodium (Porcine) (Heparin Sodium (Porcine)) 5,000 units SQ Q12 [facility] Stop: 11/26/19 08:59 Last Admin: 10/27/19 20:34 Dose: 5,000 units Documented by: [id number] Cosigned by: [id number] Admin: 10/27/19 07:37 Dose: 5,000 units Documented by: [id number] Cosigned by: [id number] Potassium Chloride/Sodium Chloride (Normal Saline W/20 Meq Kcl) 20 meq in 1,000 mls @ 70 mls/hr IV .[id number] [facility] Stop: 11/26/19 06:48 Last Admin: 10/27/19 20:35 Dose: 70 mls/hr Documented by: [id number] Infusion: 10/27/19 20:35 Dose: 70 mls/hr Documented by: [id number] Admin: 10/27/19 07:28 Dose: 70 mls/hr Documented by: [id number] Isosorbide Mononitrate (Imdur Extended Rel) 60 mg PO QAM [facility] Stop: 11/26/19 08:59 Last Admin: 10/27/19 07:40 Dose: 60 mg Documented by: [id number] Metoprolol Tartrate (Lopressor) 12.5 mg PO BID [facility] Stop: 11/26/19 08:59 Last Admin: 10/27/19 20:34 Dose: 12.5 mg Documented by: [id number] Admin: 10/27/19 07:39 Dose: 12.5 mg Documented by: [id number] Morphine Sulfate (Morphine Sulfate) 2 mg IV Q30M PRN PRN Reason: Pain Stop: 11/10/19 04:25 Last Admin: 10/27/19 07:49 Dose: 2 mg Documented by: [id number] Admin: 10/27/19 04:59 Dose: 2 mg Documented by: [id number] Nitroglycerin (Nitro-Bid 2%) 1 inch EXT Q6H [facility] Stop: 11/26/19 04:29 Last Admin: 10/27/19 16:51 Dose: 1 inch Documented by: [id number] Admin: 10/27/19 10:58 Dose: 1 inch Documented by: [id number] Admin: 10/27/19 05:03 Dose: 1 inch Documented by: [id number] Pantoprazole Sodium (Protonix) 40 mg PO DAILY [facility] Stop: 11/26/19 08:59 Last Admin: 10/27/19 07:38 Dose: 40 mg Documented by: [id number] Potassium Chloride (Klor-Con M20) 20 meq PO DAILY [facility] Stop: 11/26/19 08:59 Last Admin: 10/27/19 07:39 Dose: 20 meq Documented by: [id number] Discontinued Medications Famotidine 20 mg/ Syringe 5 mls @ 2.5 mls/min IV ONE ONE Stop: 10/27/19 07:01 Last Admin: 10/27/19 07:29 Dose: 2.5 mls/min Documented by: [id number] Ondansetron HCl (Zofran) 4 mg IV NOW STA Stop: 10/27/19 05:36 Last Admin: 10/27/19 05:39 Dose: 4 mg Documented by: [id number] Medical Decision Making Differential Diagnosis Differential diagnosis includes: GERD, STEMI, acute coronary syndrome, anxiety, and others were considered. Medical Records Attestation: I reviewed the patient's medical records. Home Medications Current Medication List: was personally reviewed by me Laboratory Data Attestation: I reviewed the patient's lab results. Result diagrams: 10/27/19 01:55 10/27/19 01:55 Lab Results 10/27/19 10/27/19 10/27/19 Range/Units 01:55 01:55 01:55 WBC 9.32 (4.8-10.8) K/uL RBC 4.23 (4.2-5.4) M/uL Hgb 13.1 (12.0-16.0) g/dL Hct 38.6 (37-47) % MCV 91.3 (80-100) fL MCH 31.0 (25-34) pg MCHC 33.9 (32-36) g/dL RDW Std Deviation 52.0 H (36.4-46.3) fL RDW Coeff of Ramiro 15.4 H (11.5-14.5) % Plt Count 380 (130-400) K/uL MPV 8.7 (7.4-10.4) fL Immature Gran % (Auto) 0.3 % Neut % (Auto) 41.2 % Lymph % (Auto) 43.0 % [place] % (Auto) 7.9 % Eos % (Auto) 6.8 % Baso % (Auto) 0.8 % Immature Gran # (Auto) 0.03 H (0.00-0.02) K/uL Neut # (Auto) 3.84 (1.4-6.5) K/uL Lymph # (Auto) 4.01 H (1.2-3.4) K/uL [place] # (Auto) 0.74 H (0.11-0.59) K/uL Eos # (Auto) 0.63 H (0-0.5) K/uL Baso # (Auto) 0.07 (0-0.2) K/uL PT 10.9 (9.0-12.0) Seconds INR 1.1 (0.9-1.1) APTT 22.8 (21.0-31.0) Seconds PTT Ratio 0.8 Sodium 142 (136-145) mmol/L Potassium 3.1 L (3.5-5.1) mmol/L Chloride 106 (98-107) mmol/L Carbon Dioxide 25 (21-32) mmol/L Anion Gap 11.0 (3-11) BUN 69 H (7-18) mg/dl Creatinine 1.85 H (0.6-1.2) mg/dl Est Cr Clr Drug Dosing 23.8 ml/min Est GFR ( Amer) 28.3 Est GFR (Non-Af Amer) 24.4 BUN/Creatinine Ratio 37.5 H (10-20) Glucose 115 H (70-99) mg/dl Calcium 9.2 (8.5-10.1) mg/dl Total Bilirubin 0.6 (0.2-1) mg/dl AST 19 (15-37) U/L ALT 12 (12-78) U/L Alkaline Phosphatase 129 H (45-117) U/L Troponin I 0.025 (0-0.045) ng/ml Total Protein 6.9 (6.4-8.2) gm/dl Albumin 2.4 L (3.4-5.0) gm/dl Globulin 4.5 H (2.5-4.0) gm/dl Albumin/Globulin Ratio 0.5 L (0.9-2) Lipase 61 L (73-393) U/L Imaging Data Attestation: I personally reviewed and interpreted this imaging study as follows: My Impression: Chest X-ray read by me Elevated left tommy-diaphragm. No cardiomegaly. No pulmonary infiltrations. No change since imaging done on 07/16/19. ECG Data Attestation: I personally reviewed and interpreted this ECG as follows: Indication: + chest pain Rate (beats per minute): 81 Rhythm: + normal sinus ECG Intervals/blocks: + Right Bundle branch block ECG Findings: no PACs and no PVCs Comparison ECG Date: from (07/16/19) Change: no significant change Blood Pressure Blood Pressure Findings: Elevated blood pressure Blood Pressure Disposition: further management by hospitalist ADIEL Narrative This is an 84-year-old who presents to the emergency department with substernal chest pain that woke her from sleep. The patient received multiple doses of sublingual nitroglycerin and a dose of IV fentanyl with no relief of her symptoms. The pain seemed to subside on its own while here in the emergency department. She did have some associated dyspnea. She had no associated EKG changes. Patient denies ever having symptoms like this in the past. The patient does have risk factors for heart disease. In fact, she just had a stroke and now resides at [facility]. I discussed the case with the hospitalist and they will evaluate for further management. Impression & Plan Substernal chest pain Discharge Plan Visit Data *Final* Discharge Date/Time: 10/27/19 06:19 Chief Complaint: Chest Pain Stated Complaint: CHEST PAIN ED Provider: Vanesa Feliz Discharge Problem: Substernal chest pain Patient Disposition: Admitted As Inpatient Discharge Instructions Interventions: ED Discharge Assessment Last Done: 10/27/19 06:19 The scribe's documentation has been prepared under my direction and personally reviewed by me in its entirety. I confirm that the note above accurately reflects all work, treatment, procedures, and medical decision making performed by me.
--- NOTE | 2019-10-28 01:27 | Billing Data ---
Date of Service October 28, 2019 Coding Level of Care Code 01603 Initial Inpt Care Lvl 3
[2019-10-28] MEDS: NITROGLYCERIN 2% OINTMENT 30GM TUBE EXT SCH ×2 (04:21→13:32)
[2019-10-28] MEDS: METOPROLOL TARTRATE 25 MG TAB PO SCH ×2 (07:59→20:22)
[2019-10-28] MEDS: ACETAMINOPHEN 500 MG TAB PO SCH ×3 (07:59→20:36)
[2019-10-28] MEDS: PANTOprazole 40 MG TAB PO SCH (07:59)
[2019-10-28] MEDS: CLOPIDOGREL BISULFATE 75 MG TAB PO SCH (07:59)
[2019-10-28] MEDS: GABAPENTIN 100 MG CAP PO SCH ×4 (07:59→20:36)
[2019-10-28] MEDS: HEPARIN SOD 5,000 UNIT/0.5 ML VIAL SQ SCH ×2 (08:00→20:22)
[2019-10-28] MEDS: ISOSORBIDE MONO EXTENDED REL 60 MG TABCR PO SCH (08:00)
[2019-10-28] MEDS: EZETIMIBE 10 MG TABLET PO SCH (08:00)
[2019-10-28] MEDS: AMLODIPINE BESYLATE 5 MG TAB PO SCH (08:00)
[2019-10-28] MEDS: POTASSIUM CHLORIDE 20 MEQ TABCR PO SCH (08:00)
[2019-10-28] MEDS ORDERED: metOLazone 5 MG TABLET PO SCH (08:30)
[2019-10-28 08:35] LABS: BUN Creatinine Ratio 34.5 (10-20); Calcium 8.9 mg/dl (8.5-10.1); Creatinine Clr Calc Pharmacy 22.8 ml/min; Est GFR (African American) 27.7; Est GFR (Non-African American) 23.9; Potassium 4.5 mmol/L (3.5-5.1)
[2019-10-28 08:51] LABS: Hematocrit (blood only) 38.8 % (37-47); Mean Corpuscular Hemoglobin 29.9 pg (25-34); Mean Corpuscular Hgb Conc 30.9 g/dL (32-36); Mean Corpuscular Volume 96.5 fL (80-100); Mean Platelet Volume 9.4 fL (7.4-10.4); Platelet Count 293 K/uL (130-400); RDW Coefficient of Variation 16.2 % (11.5-14.5); RDW Standard Deviation 57.9 fL (36.4-46.3); Red Blood Count 4.02 M/uL (4.2-5.4); White Blood Count 25.62 K/uL (4.8-10.8)
[2019-10-28] MEDS ORDERED: FUROSEMIDE 40 MG TAB PO SCH (09:00)
[2019-10-28 10:18] LABS: Basophils # (auto) 0.06 K/uL (0-0.2); Basophils % (auto) 0.2 %; Eosinophils % (auto) 2.3 %; Immature Granulocytes # (auto) 0.13 K/uL (0.00-0.02); Immature Granulocytes % (auto) 0.5 %; Lymphocytes # (auto) 4.36 K/uL (1.2-3.4); Monocytes # (auto) 1.67 K/uL (0.11-0.59); Monocytes % (auto) 6.5 %; Neutrophils % (auto) 73.5 %
--- NOTE | 2019-10-28 10:29 | Hospitalist Progress Note ---
Date of Service October 28, 2019 Assessment & Plan (1) Change in mental status: Once patient was seen, stroke alert was called. Ct scan of head was ordered. Given this occurred in the AM, unable to assess exact time that her mental status changed. Patient not a candidate for tPA at this time. D/W Dr. Melissa Goetz from [facility]. cT SCAN WAS NEGATIVE, MRI of head and MRA of head and neck did not show evidence of a new stroke. Informed family. Family reports she is back to her baseline. (2) Substernal chest pain: Anastasia is a 84-year-old female with a past medical history of chronic kidney disease, glucose intolerance without diabetes, chronic cerebral ischemia, CVA, hyperlipidemia, CHF, GERD, osteoarthritis, and depression who is a resident of [facility] who presented with approximately 12 hours of sternal chest pain and several days of right shoulder pain after falling in his bed multiple times. Substernal chest pain Appears non cardiac in nature. will consult cardio. Follow clinically. Patient and her daughter report they would not want "heroic interventions "but would like more information before deciding what to do if her symptoms were cardiac in origin Hypokalemia appears to have resolved. 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 Titrate if needed. Hyperlipidemia Continue Zetia 10 mg every morning Statin intolerant Type 2 diabetes mellitus Medical history reports patient on sliding scale insulin at [facility], patient and her daughter deny this. 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 Patient appeared to have a change in mental status from the previous day. Patient states she feels different and "off". She states that she feels numb all over. Patient does not elaborate. Review of Systems Review of Systems: Unobtainable due to cognitive status Physical Exam Physical Exam: General: A&O to name. Patient appears lethargic. HEENT: Atraumatic, normocephalic. Pulm: CTAB A&P. Cardiac: Trace systolic murmur, Radial pulses intact and symmetrical. Abdominal: Nontender, nondistended, soft. BS present. Neuro: Difficulty to assess neuro exam as patient is not following commands. Her Right side is 0/5. Left upper extremity is weak, 2/5. Sensory: Light touch, pinprick intact in upper and lower extremities, qualitatively decreased on the right. Results & Data ([facility]) Vital Signs (Past 12 Hours) Vital Signs Temp Pulse Pulse Pulse Resp BP BP 10/28/19 07:26 90 18 10/28/19 07:18 36.6 C 75 19 175/86 H 10/28/19 02:59 36.7 C 65 19 145/61 H 10/28/19 02:45 60 20 10/27/19 23:27 37.1 C 75 18 141/59 H 10/27/19 22:30 81 18 Pulse Ox 10/28/19 07:26 96 10/28/19 07:18 94 10/28/19 02:59 95 10/28/19 02:45 94 10/27/19 23:27 95 10/27/19 22:30 94 PG Care Time/CCT Total # of Minutes Spent Total Time Spent with Patient: Total time spent is greater than 50% in coordination of care (as documented) at patient's floor/unit and/or counseling patient: Prolonged Care Time Prolonged Care Time: Yes Total Prolonged Care Time: 120 Spent from 9:40 to 11 12:10 to 12:30 16:00 to 16:20 Coding Level of Care Code 38274 Subseq Hosp Care Lvl 3 Diagnoses Change in mental status R41.82 Substernal chest pain R07.2 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
--- NOTE | 2019-10-28 10:40 | CT Scan Report ---
CT head/brain wo con CLINICAL HISTORY: change of mental status COMPARISON STUDY: MRI the brain dated 07/18/2019 TECHNIQUE: Axial CT of the brain is performed from the vertex to the skull base. IV contrast was not administered for this examination. A dose lowering technique was utilized adhering to the principles of ALARA. CT DOSE: 614.27 mGy.cm FINDINGS: No intra or extra-axial mass lesions are visualized. There is no CT evidence of acute cortical infarc tion. There is no evidence of midline shift. There is no acute hemorrhage. No calvarial fractures ar e visualized. There are patchy white matter hypodensities likely on a small vessel basis. There is an old left pont ine infarct. There is no evidence of pathologic ventricular dilatation. There is no evidence of acute sinusitis Vertebrobasilar atheromatous calcifications are again evident. IMPRESSION: No acute intracranial findings ACT 112: Negative or not required by law. Electronically signed by: Nate Ribeiro M.D. 10/28/2019 10:39 AM
--- NOTE | 2019-10-28 11:28 | Cardiology Consultation ---
Date of Consultation October 28, 2019 Assessment & Plan (1) Substernal chest pain: (2) Chronic cerebral ischemia: Repeat EKG performed 10/28/2019 12:28 PM revealed sinus rhythm with sinus arrhythmia and first-degree AV block, AR interval 222 ms, right bundle branch block. Unchanged compared to her EKG yesterday, and the right bundle branch block was previously noted in June 2019. Troponin I has been negative x2 and a 3rd troponin level is due to be drawn at 1357 today. Echocardiogram performed yesterday and reviewed independently revealed normal left ventricular wall motion and mild aortic valve vegetation, normal LVEF. At this time, I recommend that we continue her prior to hospital treatment with clopidogrel. Continue her prior to hospital medications including metolazone, metoprolol, furosemide, ezetimibe, amlodipine. Family actually states that she looks better now than what she has recently at the assisted. Blood pressure is improved. Discontinue topical nitrates. Continue subcutaneous heparin for DVT prophylaxis. History of Present Illness Attending Physician: Sumit Alexis History of Present Illness Anastasia Olvera is an 84 year old female seen in cardiology consultation per the request of Dr Alexis for the evaluation of chest pain. The patient's most recent cardiology outpatient visit was in May, with Ryan Marcum PA-C of our practice. The patient's primary architect marine is Dr Rodriguez. The patient was accompanied by her daughter and her niece at the bedside at the time of my interview on 10/28/2019 2:14 PM. She had been admitted from [facility] with generalized fatigue and chest discomfort. Per review of her outpatient cardiology notes she does have a history of chronic chest discomfort. 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 This morning she had been observed by nursing to be more somnolent than usual, and they thought that her right face looked like it was drooping more than her typical baseline. Stroke alert protocol was therefore initiated. Stat CT of the brain revealed no acute intracranial hemorrhage, small vessel disease was noted as well as a old left pontine infarct. Follow-up MRI of the brain revealed chronic small vessel ischemic changes and old lacunar infarct in the left superior raphael. A possible small subgaleal hematoma at the right frontal parietal vertex was noted per the radiology report. MRA of the head and neck was technically limited due to motion artifact. There is a suspected multifocal stenosis of the left posterior cerebral artery. Diminished signal is noted within the right vertebral artery. Cardiology Problem List: 1.Coronary artery disease , s/p cardiac catheterization in 2013 with mild luminal irregularities at that time 2.Diastolic dysfunction 3.Normal LV systolic function. 4.Chronic kidney disease, stage IV, follows with Dr Barrios 5.Hypertension. 6.Dyslipidemia with intolerance to multiple statins. 7.Benign positional vertigo. 8.Mitral regurgitation. 9.Untreated sleep apnea 10.Nocturnal hypoxemia treated with supplemental oxygen therapy. 11.Hiatal hernia 12.Esophageal dysmotility. Allergies Allergy/AdvReac Type Severity Reaction Status Date / Time adhesive tape Allergy Severe BLISTER Verified 10/27/19 03:21 SKIN doxycycline Allergy Severe trouble Verified 10/27/19 03:21 breathing Iodinated Contrast Media Allergy Severe ON PT LIST Verified 10/27/19 03:21 [Iodinated Contrast- Oral and IV Dye] cortisone Allergy Intermediate SWELLING, Verified 10/27/19 03:21 CHILLS, SHAKINESS levofloxacin Allergy Intermediate SHORTNESS Verified 10/27/19 03:21 OF BREATH cephalexin Allergy Mild RASH Verified 10/27/19 03:21 latex Allergy Mild Redness of Verified 10/27/19 03:21 Skin acetaminophen Allergy Unknown UNKNOWN Verified 10/27/19 03:21 Aminoglycosides Allergy Unknown ON PT LIST Verified 10/27/19 03:21 atorvastatin Allergy Unknown ON PT LIST Verified 10/27/19 03:21 bacitracin Allergy Unknown ON PT LIST Verified 10/27/19 03:21 benzonatate Allergy Unknown ON PT LIST Verified 10/27/19 03:21 febuxostat Allergy Unknown ON PT LIST Verified 10/27/19 03:21 indomethacin Allergy Unknown ON PT LIST Verified 10/27/19 03:21 methylprednisolone Allergy Unknown ON PT LIST Verified 10/27/19 03:21 neomycin Allergy Unknown ON PT LIST Verified 10/27/19 03:21 oxycodone Allergy Unknown ON PT LIST Verified 10/27/19 03:21 polymyxin B Allergy Unknown ON PT LIST Verified 10/27/19 03:21 prednisone Allergy Unknown ON PT LIST Verified 10/27/19 03:21 rosuvastatin Allergy Unknown ON PT LIST Verified 10/27/19 03:21 Elpwtap-Kxy-Aby Reductase Allergy Unknown ON PT LIST Verified 10/27/19 03:21 Inhibitor azithromycin AdvReac Intermediate Flushed Verified 10/27/19 03:21 Skin diphenhydramine AdvReac Intermediate Short of Verified 10/27/19 03:21 [From [place]ian[place]] Breath, Puffiness, Redness Home Medications Home Medications Medication Instructions Recorded Confirmed Type isosorbide mononitrate 60 mg PO QAM 01/29/19 10/27/19 History nitroglycerin [Nitrostat] 0.4 mg SUBLINGUAL DIRECTED PRN 01/29/19 10/27/19 History metoprolol tartrate 25 mg tablet 12.5 mg PO BID #60 tab 05/16/19 10/27/19 Rx acetaminophen [Tylenol Extra 1,000 mg PO Q12 07/16/19 10/27/19 History Strength] bisacodyl 10 mg AR DAILY PRN 07/16/19 10/27/19 History clopidogrel 75 mg PO QAM #30 tab 07/19/19 10/27/19 Rx ezetimibe [Zetia] 10 mg PO QAM #30 tab 07/19/19 10/27/19 Rx omega-3 fatty acids-fish oil [Fish 1 g PO BID #60 cap 07/19/19 10/27/19 Rx Oil] acetaminophen 1,000 mg PO UD PRN MDD 3gm/24hr 10/27/19 10/27/19 History amlodipine 10 mg PO DAILY 10/27/19 10/27/19 History carboxymethylcellulose sodium 2 drp OPHTHALMIC (EYE) BID PRN 10/27/19 10/27/19 History [Refresh Tears] furosemide [Lasix] 40 mg PO 3XWK 10/27/19 10/27/19 History gabapentin 100 mg PO TID 10/27/19 10/27/19 History hydromorphone [Dilaudid] 2 mg PO Q12 PRN 10/27/19 10/27/19 History insulin lispro [Humalog U-100 1 sliding scale dose SUBCUT 10/27/19 10/27/19 History Insulin] USEASDIRECTD menthol-zinc oxide [Calmoseptine] 1 applic TOPICAL BID 10/27/19 10/27/19 History metolazone 5 mg PO 3XWK 10/27/19 10/27/19 History potassium chloride 20 meq PO DAILY 10/27/19 10/27/19 History tramadol 50 mg PO Q12 PRN 10/27/19 10/27/19 History Patient History Medical History Borderline diabetes Chronic kidney disease, stage 4 (severe) follows w/ dr. barrios Chronic obstructive pulmonary disease Congestive heart failure Deep vein thrombosis (Resolved) > 10 years ago - LLE after injury - treated w/ AC therapy Diverticular disease GERD (gastroesophageal reflux disease) Hearing deficit [place] History of anxiety History of benign breast biopsy History of depression History of stomach ulcers Hyperlipidemia Hypertension Lumbar degenerative disc disease (Chronic) On home oxygen therapy 2 lpm @ night. daytime PRN. Osteoarthritis Osteoporosis Sleep apnea does not tolerate CPAP - wears oxygen at night 2 lpm Surgical History History of cardiac cath 10 years ago - [facility] - - no stents/angioplasty - follows w/ Dr. Rodriguez History of cataract surgery LEFT on 02/18/19: was given 1mg of Versed History of cholecystectomy History of colonoscopy History of esophagogastroduodenoscopy (EGD) History of tonsillectomy History of tooth extraction History of total abdominal hysterectomy and bilateral salpingo-oophorectomy Removal of ovarian cyst (Resolved 08/01/12) Family History Mother , of liver disease Family history of diabetes mellitus Brother Family history of diabetes mellitus Daughter Family history of diabetes mellitus Sister Family history of diabetes mellitus Father , of an [place] Myocardial infarction Social History Preferred Language: [place] Communication Ability: Effective Ladle Handler Required: No Beliefs That Will Affect Care: None marital status: / Current Living Situation: Long-Term Current Living Situation Comment: family checks in on pt daily current occupational status: retired current occupation: Retired in the late 80s Other Information That Helps Us Care for You: No other: 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 Feels Safe at Home: Yes Safety Concerns: Feels Safe At This Time Smoking Status: Never smoker Second Hand Exposure: No ; Hx Alcohol Use: No Hx Substance Use: No Review of Systems Review of Systems: All systems reviewed & are unremarkable except as noted in HPI & below Physical Exam Physical Exam: Temp Pulse Resp BP Pulse Ox 36.5 C 81 14 132/56 L 97 10/28/19 13:02 10/28/19 13:02 10/28/19 13:02 10/28/19 13:02 10/28/19 13:02 Constitutional: WD/WN, vitals as above Respiratory: normal respiratory effort, lungs clear to auscultation Cardiovascular: RRR, no murmur, no edema Gastrointestinal (Abdomen): normal bowel sounds, soft, nontender, no hepatosplenomegaly Neurologic: Right-sided facial droop noted, patient awake and conversant, right upper and lower hemiparesis noted Results & Data ([facility]) Vital Signs (Past 12 Hours) Vital Signs Temp Pulse Pulse Pulse Resp BP BP 10/28/19 07:26 90 18 10/28/19 07:18 36.6 C 75 19 175/86 H 10/28/19 02:59 36.7 C 65 19 145/61 H 10/28/19 02:45 60 20 10/27/19 23:27 37.1 C 75 18 141/59 H Pulse Ox 10/28/19 07:26 96 10/28/19 07:18 94 10/28/19 02:59 95 10/28/19 02:45 94 10/27/19 23:27 95
--- NOTE | 2019-10-28 12:26 | Magnetic Resonance Report ---
MR ANGIOGRAPHY OF THE [place] NO CONTRAST CLINICAL HISTORY: stroke COMPARISON STUDY: None A 3-D [id number] MR angiographic sequence of the [place] was performed. Both the source and projection images were reviewed. The study is limited from a technical standpoint secondary to motion artifact. There is a suspected focal stenosis of both the proximal and the mid left posterior cerebral artery w ith evidence of a probable distal occlusion. There is diminished signal within the right vertebral artery. This may indicate a stenotic lesion. There are no lesion suspicious for aneurysm. There are no significant stenotic lesions within the anterior circulation. IMPRESSION: 1. Technically limited study 2. Suspected multifocal stenoses of the left posterior cerebral artery 3. Diminished signal within the right vertebral artery. This may indicate a slow flow situation as wo uld be seen in a stenotic lesion. 4. CT angiography is recommended in follow-up. ACT 112: Negative or not required by law. Electronically signed by: Nate Ribeiro M.D. 10/28/2019 12:25 PM
--- NOTE | 2019-10-28 12:26 | Magnetic Resonance Report ---
MR brain wo con CLINICAL HISTORY: 84 years-old Female presenting with stroke, chest pain, dizziness, left facial droo p and slurred speech. TECHNIQUE: Multisequence, multiplanar MR imaging of the brain was performed without the use of intrav enous contrast. IV contrast: None. COMPARISON: Noncontrast CT head performed earlier the same day and brain MR from 07/18/2019. FINDINGS: Localizer images: Unremarkable. Bone marrow signal intensity within the calvarium within normal limits. Subgaleal heterogeneously T1 hyperintense, mildly T2 hypointense collection at the right frontoparietal vertex, possibly hematoma. This is new from prior MR and may not have been included within the field of view on the CT head. Normal midline sagittal structures. Proportional ventricular and sulcal prominence, likely age-relate d parenchymal volume loss. No mass effect or midline shift. No restricted diffusion or hemorrhage. Pe riventricular and subcortical white matter T2/FLAIR hyperintensity, nonspecific but likely indicative of chronic small vessel ischemic change. Old lacunar infarct in the left superior raphael. Few small in farcts in the right cerebellar hemisphere also noted. These are old. No extra-axial fluid collection. T2 skull base flow voids preserved. Bilateral [place] lenses are abse nt. IMPRESSION: 1. Chronic small vessel ischemic change and old lacunar infarct in the left superior raphael. 2. No acute intracranial abnormality. 3. Possible small subgaleal hematoma at the right frontoparietal vertex. Correlate with physical exa m. ACT 112: Negative or not required by law. Electronically signed by: Byron Mccrary M.D. 10/28/2019 12:25 PM
--- NOTE | 2019-10-28 12:29 | Magnetic Resonance Report ---
MR angio neck wo con CLINICAL HISTORY: 84 years-old Female presenting with left facial droop, slurred speech, stroke alert , chest pain and dizziness. TECHNIQUE: MR angiography of the neck was performed without the use of intravenous contrast using 2-D [id number] technique. 3-D volumetric and/or maximum intensity projection (MIP) images were subse quently reconstructed for review. IV contrast: None. Stenosis measurements were based on NASCET-like criteria (distal lumen diameter as the denominator for stenosis measurement). COMPARISON: None. FINDINGS: Localizer images: Unremarkable. The examination was limited by patient intolerance and discomfort. This moderately degrades diagnosti c sensitivity of the acquired sequences. Aortic arch: Possible filling defect within the aortic arch (series 6 image 171), possibly thrombus o r plaque. Innominate artery: Patent. Right subclavian artery: Patent. Right common carotid artery: Patent. Right internal and external carotid arteries: Right carotid bifurcation patent. Right internal and ex ternal carotid arteries widely patent. Left common carotid artery: Patent. Left internal and external carotid arteries: Left carotid bifurcation patent. Left internal and exter nal carotid arteries widely patent. Left subclavian artery: Patent. Vertebral arteries: Not well visualized. Other: Limited intracranial evaluation within normal limits. Soft tissues of the neck normal allowing for the phase of contrast. IMPRESSION: The examination was limited by patient intolerance and discomfort. This moderately degrades diagnosti c sensitivity of the acquired sequences. 1. Possible plaque or thrombus in the aortic arch accounting for the apparent filling defect. Consid er CTA neck for better assessment. 2. Limited evaluation of the vertebral arteries. 3. No gross high-grade stenosis or focal vessel occlusion allowing for these limitations. ACT 112: Negative or not required by law. Electronically signed by: Byron Mccrary M.D. 10/28/2019 12:28 PM
--- NOTE | 2019-10-28 13:09 | XRay Report ---
XR chest 1V portable CLINICAL HISTORY: change of mental status COMPARISON STUDY: October 27, 2019 FINDINGS: The heart is borderline enlarged. There is no failure. There are no pleural effusions. Ther e are minor left basilar opacities, likely atelectatic although a infectious/inflammatory processes c ould appear similar.[ IMPRESSION: Minor left basilar opacities. Although likely atelectatic, an infectious/inflammatory pro cesses could appear similar ACT 112: Negative or not required by law. Electronically signed by: Nate Ribeiro M.D. 10/28/2019 1:07 PM
[2019-10-28] MEDS: LACTATED RINGER'S 1,000 ML IV SCH ×2 (13:32→21:25)
--- NOTE | 2019-10-28 13:47 | Electrocardiogram Report ---
Test Reason : Blood Pressure : / mmHG Vent. Rate : 087 BPM Atrial Rate : 087 BPM P-R Int : 222 ms QRS Dur : 120 ms QT Int : 426 ms P-R-T Axes : 088 -43 037 degrees QTc Int : 512 ms Poor data quality, interpretation may be adversely affected Sinus rhythm with sinus arrhythmia with 1st degree A-V block Left axis deviation Pulmonary disease pattern Right bundle branch block Abnormal ECG When compared with ECG of 27-OCT-2019 02:07, No significant change was found Confirmed by Bill Smith ([id number]) on 10/28/2019 1:47:12 PM Referred By: [facility] Confirmed By:Bill Smith
[2019-10-28 14:13] LABS: Base Excess VBG 1.2 mEq/L; pH VBG 7.39 (7.36-7.41)
[2019-10-29 06:31] LABS: Basophils # (auto) 0.04 K/uL (0-0.2); Basophils % (auto) 0.2 %; Eosinophils # (auto) 0.45 K/uL (0-0.5); Eosinophils % (auto) 2.7 %; Hematocrit (blood only) 35.7 % (37-47); Hemoglobin 11.1 g/dL (12.0-16.0); Immature Granulocytes # (auto) 0.07 K/uL (0.00-0.02); Immature Granulocytes % (auto) 0.4 %; Lymphocytes # (auto) 2.75 K/uL (1.2-3.4); Lymphocytes % (auto) 16.3 %; Mean Corpuscular Hemoglobin 30.5 pg (25-34); Mean Corpuscular Hgb Conc 31.1 g/dL (32-36); Mean Corpuscular Volume 98.1 fL (80-100); Mean Platelet Volume 9.7 fL (7.4-10.4); Monocytes # (auto) 1.01 K/uL (0.11-0.59); Neutrophils # (auto) 12.56 K/uL (1.4-6.5); Neutrophils % (auto) 74.4 %; Platelet Count 230 K/uL (130-400); RDW Coefficient of Variation 16.6 % (11.5-14.5); RDW Standard Deviation 59.5 fL (36.4-46.3); Red Blood Count 3.64 M/uL (4.2-5.4); White Blood Count 16.88 K/uL (4.8-10.8)
[2019-10-29 07:13] LABS: BUN Creatinine Ratio 33.9 (10-20); Calcium 8.6 mg/dl (8.5-10.1); Creatinine Clr Calc Pharmacy 24.1 ml/min; Est GFR (African American) 29.2; Est GFR (Non-African American) 25.2; Potassium 3.7 mmol/L (3.5-5.1)
--- NOTE | 2019-10-29 08:34 | Neurology Consultation ---
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 This has been stable and a recent MRI showed no new stroke or ch anges. She has some mild to moderate chronic ischemia of an old nature also. Etiology of the stroke was likely hypertensive small vessel ischemic disease. Her blood pressure is still not adequately controlled. Patient had an acute change in mental status yesterday. Evaluation revealed no new stroke and no change in neurologic examination today. MR angiography shows multi vessel stenosis in the right vertebral and left [employer]. Her mental status is close to baseline currently. Patient has a history of lumbar spinal stenosis which is not an active or significant problem at this particular time. Recommendations: 1. Continue clopidogrel 75 milligrams daily. 2. Control blood pressure a min for a mean arterial pressure of 95-100. 3. Hemoglobin A1c is 6.9. Tried to lower this closer to 6.0 the a glucose control. 4. PT, OT, and speech therapy as able. 5. Avoid medications that would give her altered mental status. 6. Otherwise, I have no further neurologic testing or treatment recommendations to make at this time. Overall, I spent a total of 75 minutes with this case including review of records, review of MRI films, direct evaluation the patient bedside, and discussing the case with patient and nurse at bedside as well as Dr. Alexis including differential diagnosis and treatment options. History of Present Illness Reason for Consultation: Patient is an 84-year-old, who I was asked to see at the request of Dr. Alexis, for neurologic consultation regarding acute altered mental status and history of significant stroke. Requesting Physician: Dr. Alexis Attending Physician: Sumit Alexis History of Present Illness This patient has a history of hypertension for over 20 years, as well as dyslipidemia and coronary artery disease. She has chronic kidney disease stage 4 for at least 5 years, COPD, congestive heart failure, sleep apnea and borderline diabetes. The patient had been on 81 milligram aspirin tablet daily for many years. She has had problems with her lumbar spine with radicular symptomatology left greater than right leg, occurring for at least a year. Most recent MRI in May of 2019 showed mild diffuse lumbar spinal stenosis. She has received nerve ablation injections from Pain Management in the fall and had some improvement. I 1st saw this patient in late June of 2019 for a left central pontine stroke. She had initially some dysarthria and left facial weakness with right arm greater than right leg weakness. The next day she became markedly worse with right hemiplegia and were speech. A repeat MRI did not show any new issues/hemorrhage. I suspected some edema or extension of infarct. She was discharged on clopidogrel 75+ 81 milligram aspirin. She was at [facility] in [facility] and then transferred to [facility], where she has been since. 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 She ride to the emergency room on October 27 at 0212 with a temperature of 36.4, pulse 80 regular, respiratory 20, blood pressure 167/77, and O2 saturation 96 percent. Exam on admission revealed dysarthria, inability to protrude her tongue, 0/5 strength in the right arm and leg and 4/5 strength in the left arm and leg. Echocardiogram revealed some mild LVH and ejection fraction of 60-65 percent. There was mild aortic regurgitation. Around 10 o'clock in the morning October 28 patient was noted to be very lethargic. A stroke alert was called and she was not a tPA candidate. MRI of the brain showed no new stroke but it showed the old rather large left pontine stroke. There was [id number] old small vessel ischemic changes mild generalized atrophy. I reviewed these films. MR angiography of the head and neck revealed some possible plaque in the aortic arch and multifocal stenosis of the left posterior cerebral artery with significant decreased signal in the right vertebral artery. According to clinicians and family she was back to baseline with her exam and mental status by the afternoon and evening of October 28. Nursing reports no events overnight. She has been in normal sinus rhythm in the 70s. Blood pressure this morning was 169/67. She is very lethargic but arousable to voice. She follows one-step commands and has no complaint of pain, headache, or dizziness. Allergies Allergy/AdvReac Type Severity Reaction Status Date / Time adhesive tape Allergy Severe BLISTER Verified 10/27/19 03:21 SKIN doxycycline Allergy Severe trouble Verified 10/27/19 03:21 breathing Iodinated Contrast Media Allergy Severe ON PT LIST Verified 10/27/19 03:21 [Iodinated Contrast- Oral and IV Dye] cortisone Allergy Intermediate SWELLING, Verified 10/27/19 03:21 CHILLS, SHAKINESS levofloxacin Allergy Intermediate SHORTNESS Verified 10/27/19 03:21 OF BREATH cephalexin Allergy Mild RASH Verified 10/27/19 03:21 latex Allergy Mild Redness of Verified 10/27/19 03:21 Skin acetaminophen Allergy Unknown UNKNOWN Verified 10/27/19 03:21 Aminoglycosides Allergy Unknown ON PT LIST Verified 10/27/19 03:21 atorvastatin Allergy Unknown ON PT LIST Verified 10/27/19 03:21 bacitracin Allergy Unknown ON PT LIST Verified 10/27/19 03:21 benzonatate Allergy Unknown ON PT LIST Verified 10/27/19 03:21 febuxostat Allergy Unknown ON PT LIST Verified 10/27/19 03:21 indomethacin Allergy Unknown ON PT LIST Verified 10/27/19 03:21 methylprednisolone Allergy Unknown ON PT LIST Verified 10/27/19 03:21 neomycin Allergy Unknown ON PT LIST Verified 10/27/19 03:21 oxycodone Allergy Unknown ON PT LIST Verified 10/27/19 03:21 polymyxin B Allergy Unknown ON PT LIST Verified 10/27/19 03:21 prednisone Allergy Unknown ON PT LIST Verified 10/27/19 03:21 rosuvastatin Allergy Unknown ON PT LIST Verified 10/27/19 03:21 Qzrasst-Taf-Lxa Reductase Allergy Unknown ON PT LIST Verified 10/27/19 03:21 Inhibitor azithromycin AdvReac Intermediate Flushed Verified 10/27/19 03:21 Skin diphenhydramine AdvReac Intermediate Short of Verified 10/27/19 03:21 [From Benadryl] Breath, Puffiness, Redness Home Medications Home Medications Medication Instructions Recorded Confirmed Type isosorbide mononitrate 60 mg PO QAM 01/29/19 10/27/19 History nitroglycerin [Nitrostat] 0.4 mg SUBLINGUAL DIRECTED PRN 01/29/19 10/27/19 History metoprolol tartrate 25 mg tablet 12.5 mg PO BID #60 tab 05/16/19 10/27/19 Rx acetaminophen [Tylenol Extra 1,000 mg PO Q12 07/16/19 10/27/19 History Strength] bisacodyl 10 mg OH DAILY PRN 07/16/19 10/27/19 History clopidogrel 75 mg PO QAM #30 tab 07/19/19 10/27/19 Rx ezetimibe [Zetia] 10 mg PO QAM #30 tab 07/19/19 10/27/19 Rx omega-3 fatty acids-fish oil [Fish 1 g PO BID #60 cap 07/19/19 10/27/19 Rx Oil] acetaminophen 1,000 mg PO UD PRN MDD 3gm/24hr 10/27/19 10/27/19 History amlodipine 10 mg PO DAILY 10/27/19 10/27/19 History carboxymethylcellulose sodium 2 drp OPHTHALMIC (EYE) BID PRN 10/27/19 10/27/19 History [Refresh Tears] furosemide [Lasix] 40 mg PO 3XWK 10/27/19 10/27/19 History gabapentin 100 mg PO TID 10/27/19 10/27/19 History hydromorphone [Dilaudid] 2 mg PO Q12 PRN 10/27/19 10/27/19 History insulin lispro [Humalog U-100 1 sliding scale dose SUBCUT 10/27/19 10/27/19 History Insulin] USEASDIRECTD menthol-zinc oxide [Calmoseptine] 1 applic TOPICAL BID 10/27/19 10/27/19 History metolazone 5 mg PO 3XWK 10/27/19 10/27/19 History potassium chloride 20 meq PO DAILY 10/27/19 10/27/19 History tramadol 50 mg PO Q12 PRN 10/27/19 10/27/19 History Patient History Medical History Borderline diabetes Chronic kidney disease, stage 4 (severe) follows w/ dr. mosley Chronic obstructive pulmonary disease Congestive heart failure Deep vein thrombosis (Resolved) > 10 years ago - LLE after injury - treated w/ AC therapy Diverticular disease GERD (gastroesophageal reflux disease) Hearing deficit [place] History of anxiety History of benign breast biopsy History of depression History of stomach ulcers Hyperlipidemia Hypertension Lumbar degenerative disc disease (Chronic) On home oxygen therapy 2 lpm @ night. daytime PRN. Osteoarthritis Osteoporosis Sleep apnea does not tolerate CPAP - wears oxygen at night 2 lpm Surgical History History of cardiac cath 10 years ago - [facility] - ODALYS - no stents/angioplasty - follows w/ Dr. Rodriguez History of cataract surgery LEFT on 02/18/19: was given 1mg of Versed History of cholecystectomy History of colonoscopy History of esophagogastroduodenoscopy (EGD) History of tonsillectomy History of tooth extraction History of total abdominal hysterectomy and bilateral salpingo-oophorectomy Removal of ovarian cyst (Resolved 08/01/12) Family History Mother , of liver disease Family history of diabetes mellitus Brother Family history of diabetes mellitus Daughter Family history of diabetes mellitus Sister Family history of diabetes mellitus Father , of an [place] Myocardial infarction Social History Preferred Language: [place]ic Communication Ability: Impaired Performance Specialist Required: No Beliefs That Will Affect Care: None marital status: / Current Living Situation: Long-Term Current Living Situation Comment: family checks in on pt daily current occupational status: retired current occupation: Retired in the late 80s Other Information That Helps Us Care for You: No other: 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 She does not seem to be in pain or headache. She does not have dizziness. She indicated that she was cold and felt better with blankets back on her. Otherwise a detailed review of systems could not be obtained. Physical Exam Physical Exam: The patient is right-handed. The patient is sleepy when I came into the room but aroused with voice and gentle shaking. She made eye contact and would track horizontally bilaterally. If left alone she would fall back to sleep. She could make some sounds and form yes and no answers to most questions. She was not saying any other words. She could not distinctly form her name but seem to identify her name when given a series of choices. Mood and affect seem normal appropriate otherwise. Memory could not be adequately tested. The discs are sharp with positive venous pulsations bilaterally. There are no exudates, hemorrhages, or blood vessel changes seen. Pupils are 4 mm bilaterally and reactive to light. Extraocular eye muscles are intact without nystagmus. Visual acuity and visual mclain seem normal grossly to confrontation. There are no deficits to sensation in the face in all 3 distributions of the fifth cranial nerve bilaterally. Corneal reflexes are positive bilaterally. Facial symmetry was normal bilaterally but she seemed weak bilaterally. Hearing seems reasonable to voice bilaterally. Palate moves well without asymmetry. There is normal sternocleidomastoid and trapezius (shoulder shrug) strength bilaterally. Tongue is midline but is weak bilaterally. Neck has a full range of motion without discomfort. There are no cervical bruits bilaterally. There are no cranial or ocular bruits. Heart is without murmur. There is a regular rhythm and rate. Cervical, thoracic, and lumbar spine are nontender to palpation. Gait cannot be tested and stance is poor in bed. With outstretched left arm there is no obvious drift. She has no resting tremor obvious abnormal involuntary movements. Motor strength is 0/5 proximally and distally in the right arm and leg. There is decreased tone in these limbs as well. The left arm and leg have reasonable tone and strength is 4/5 diffusely in the arm and 3/5 in the leg. There is edema noted in the distal right upper extremity. Sensory examination is intact to touch and pin throughout all 4 limbs diffusely. Reflexes are 2/4 in the biceps, triceps, brachioradialis, and quadriceps tendons bilaterally. Achilles tendon reflexes seem absent bilaterally. There is no clonus bilaterally. Toes are downgoing with plantar stimulation on the left and upgoing on the right. Results & Data Vital Signs (Past 12 Hours) Vital Signs Temp Pulse Pulse Pulse Resp BP Pulse Ox 10/29/19 07:22 36.4 C L 72 20 169/67 H 100 10/29/19 04:04 37.3 C 85 17 144/64 H 95 10/28/19 23:47 36.9 C 69 16 150/65 H 99 10/28/19 21:48 81 20 97 Diagnostic Findings MR brain wo con CLINICAL HISTORY: 84 years-old Female presenting with stroke, chest pain, dizziness, left facial droop and slurred speech. TECHNIQUE: Multisequence, multiplanar MR imaging of the brain was performed without the use of intravenous contrast. IV contrast: None. COMPARISON: Noncontrast CT head performed earlier the same day and brain MR from 07/18/2019. FINDINGS: Localizer images: Unremarkable. Bone marrow signal intensity within the calvarium within normal limits. Subgaleal heterogeneously T1 hyperintense, mildly T2 hypointense collection at the right frontoparietal vertex, possibly hematoma. This is new from prior MR and may not have been included within the field of view on the CT head. Normal midline sagittal structures. Proportional ventricular and sulcal prominence, likely age-related parenchymal volume loss. No mass effect or midline shift. No restricted diffusion or hemorrhage. Periventricular and subcortical white matter T2/FLAIR hyperintensity, nonspecific but likely indicative of chronic small vessel ischemic change. Old lacunar infarct in the left superior raphael. Few small infarcts in the right cerebellar hemisphere also noted. These are old. No extra-axial fluid collection. T2 skull base flow voids preserved. Bilateral [place] lenses are absent. IMPRESSION: 1. Chronic small vessel ischemic change and old lacunar infarct in the left superior raphael. 2. No acute intracranial abnormality. 3. Possible small subgaleal hematoma at the right frontoparietal vertex. Correlate with physical exam. ACT 112: Negative or not required by law. Electronically signed by: Byron Mccrary M.D. 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
[2019-10-29] MEDS: HEPARIN SOD 5,000 UNIT/0.5 ML VIAL SQ SCH (10:04)
[2019-10-29] MEDS: ACETAMINOPHEN 500 MG TAB PO SCH (10:15)
[2019-10-29] MEDS: METOPROLOL TARTRATE 25 MG TAB PO SCH (10:15)
[2019-10-29] MEDS: GABAPENTIN 100 MG CAP PO SCH ×2 (10:15→13:34)
[2019-10-29] MEDS: CLOPIDOGREL BISULFATE 75 MG TAB PO SCH (10:15)
[2019-10-29] MEDS: PANTOprazole 40 MG TAB PO SCH (10:16)
[2019-10-29] MEDS: AMLODIPINE BESYLATE 5 MG TAB PO SCH (10:16)
[2019-10-29] MEDS: POTASSIUM CHLORIDE 20 MEQ TABCR PO SCH (10:16)
[2019-10-29] MEDS: EZETIMIBE 10 MG TABLET PO SCH (10:16)
[2019-10-29] MEDS: ISOSORBIDE MONO EXTENDED REL 60 MG TABCR PO SCH (10:16)
--- NOTE | 2019-10-29 15:58 | Palliative Care Progress Note ---
Date of Service October 29, 2019 Subjective Received notification that this patient was returning to [facility] today and would possibly need a palliative consult. Patient suffered a significant stroke back in June 2019 and has residual right sided hemiplegia. Her overall condition and functional status is poor. I met with patient and her daughter in room 205. They had just received discharge instructions. Daughter is tearful and overwhelmed. Patient is sleeping soundly and snoring. Rebekah Mcclure states that the goal is "just for her to be comfortable." Kami has been through this with her father/patient's . Kami would like to have hospice care set up once patient returns to [facility]. I will send social media director at [facility] an email regarding patient's wishes. They are welcome to consult me on this patient once she is at [facility], but it seems as though a referral straight to hospice is more appropriate. Rebekah Mcclure agrees. Results & Data Vital Signs (Past 12 Hours) Coding Level of Care Code None
--- NOTE | 2019-11-04 05:53 | Discharge Summary ---
Date of Service October 29, 2019 Admission HPI Per Admitting Provider Anastasia is a 84-year-old female with a past medical history of chronic kidney disease, glucose intolerance without diabetes, chronic cerebral ischemia, CVA, hyperlipidemia, CHF, GERD, osteoarthritis, and depression who is a resident of [facility] who presented with approximately 12 hours of sternal chest pain and several days of right shoulder pain after falling in his bed multiple times. She reports her shoulder pain has been going on for 3 days after she sustained multiple falls when she rolled out of bed. She is paralyzed on her right side from her stroke. This afternoon around 4-5 o'clock she also developed substernal chest pain which was not associated with diaphoresis or shortness of breath. She has had intermittent lightheadedness and dizziness for 1 week. Her chest pain was not improved with aspirin or 4 doses of nitro. She has had mild nausea for the past week, few episodes of emesis. She is currently breathing on 2 L of nasal cannula and is not short of breath, she is on baseline 2 L. She reports she has congestive heart failure which causes swelling in her extremities and for which she is on Lasix, last echo in 06/2019 showed an EF of 55 to 60% with mild to moderate aortic regurgitation and mild concentric LVH. Allergies: Extensive. See EMR Past medical history: Reviewed. Includes prediabetes, CKD, chronic cerebral ischemia, HLD, CVA, CHF, GERD, OA, depression Past surgical history: Cholecystectomy, dental extraction, hysterectomy with salpingo-oophorectomy Family history: Diabetes, CA in her father. EMR reviewed. Social history: No current or former tobacco use. No current or former alcohol use. No recreational drug use. Presents from [facility]. CODE STATUS: DNR/DNI Principal Diagnosis chest pain Discharge Exam General: A&O to name. Patient appears lethargic. HEENT: Atraumatic, normocephalic. Pulm: CTAB A&P. Cardiac: Trace systolic murmur, Radial pulses intact and symmetrical. Abdominal: Nontender, nondistended, soft. BS present. Neuro: Difficulty to assess neuro exam as patient is not following commands. Her Right side is 0/5. Left upper extremity is weak, 2/5. Sensory: Light touch, pinprick intact in upper and lower extremities, qualitatively decreased on the right Discharge Data Allergies Allergy/AdvReac Type Severity Reaction Status Date / Time adhesive tape Allergy Severe BLISTER Verified 10/27/19 03:21 SKIN doxycycline Allergy Severe trouble Verified 10/27/19 03:21 breathing Iodinated Contrast Media Allergy Severe ON PT LIST Verified 10/27/19 03:21 [Iodinated Contrast- Oral and IV Dye] cortisone Allergy Intermediate SWELLING, Verified 10/27/19 03:21 CHILLS, SHAKINESS levofloxacin Allergy Intermediate SHORTNESS Verified 10/27/19 03:21 OF BREATH cephalexin Allergy Mild RASH Verified 10/27/19 03:21 latex Allergy Mild Redness of Verified 10/27/19 03:21 Skin acetaminophen Allergy Unknown UNKNOWN Verified 10/27/19 03:21 Aminoglycosides Allergy Unknown ON PT LIST Verified 10/27/19 03:21 atorvastatin Allergy Unknown ON PT LIST Verified 10/27/19 03:21 bacitracin Allergy Unknown ON PT LIST Verified 10/27/19 03:21 benzonatate Allergy Unknown ON PT LIST Verified 10/27/19 03:21 febuxostat Allergy Unknown ON PT LIST Verified 10/27/19 03:21 indomethacin Allergy Unknown ON PT LIST Verified 10/27/19 03:21 methylprednisolone Allergy Unknown ON PT LIST Verified 10/27/19 03:21 neomycin Allergy Unknown ON PT LIST Verified 10/27/19 03:21 oxycodone Allergy Unknown ON PT LIST Verified 10/27/19 03:21 polymyxin B Allergy Unknown ON PT LIST Verified 10/27/19 03:21 prednisone Allergy Unknown ON PT LIST Verified 10/27/19 03:21 rosuvastatin Allergy Unknown ON PT LIST Verified 10/27/19 03:21 Kqcfxbo-Kgy-Ciz Reductase Allergy Unknown ON PT LIST Verified 10/27/19 03:21 Inhibitor azithromycin AdvReac Intermediate Flushed Verified 10/27/19 03:21 Skin diphenhydramine AdvReac Intermediate Short of Verified 10/27/19 03:21 [From Benadryl] Breath, Puffiness, Redness Consultations 10/27/19 03:53 ED Decision to Admit Stat 10/28/19 12:08 Consult Cardiology Routine 10/29/19 07:24 Consult Neurology Routine 10/29/19 11:56 Consult Palliative Care Routine Ordered Studies 10/28/19 10:17 CT head/brain wo con Stat 10/28/19 10:36 CT angio head w con Stat CT angio neck with con Stat 10/28/19 10:37 MR brain wo con Stat 10/28/19 10:42 MR angio head wo con Urgent MR angio neck wo con Urgent Hospital Course (1) Change in mental status: Once patient was seen, stroke alert was called. Ct scan of head was ordered. Given this occurred in the AM, unable to assess exact time that her mental status changed. Patient not a candidate for tPA at this time. D/W Dr. Melissa Goetz from [facility]. cT SCAN WAS NEGATIVE, MRI of head and MRA of head and neck did not show evidence of a new stroke. Informed family. Family reports she is back to her baseline. On day of discharge, patient had returned to her baseline. She still has significant dementia and poor quality of life. Family will like to discuss with [facility] care goals of care. (2) Substernal chest pain: Anastasia is a 84-year-old female with a past medical history of chronic kidney disease, glucose intolerance without diabetes, chronic cerebral ischemia, CVA, hyperlipidemia, CHF, GERD, osteoarthritis, and depression who is a resident of [facility] who presented with approximately 12 hours of sternal chest pain and several days of right shoulder pain after falling in his bed multiple times. Substernal chest pain Appears non cardiac in nature. Appreciate input from cardio. No further interventions required Follow clinically. Patient and her daughter report they would not want "heroic interventions "but would like more information before deciding what to do if her symptoms were cardiac in origin Hypokalemia appears to have resolved. 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 Titrate if needed. Hyperlipidemia Continue Zetia 10 mg every morning Statin intolerant Type 2 diabetes mellitus Medical history reports patient on sliding scale insulin at [facility], patient and her daughter deny this. 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: (4) Stroke: (5) Chronic obstructive pulmonary disease: (6) Sleep apnea: (7) Hypertension: (8) Hyperlipidemia: (9) Congestive heart failure: (10) History of depression: (11) Borderline diabetes: (12) GERD (gastroesophageal reflux disease): (13) Chronic kidney disease, stage 4 (severe): Total Time Total Time Spent Total Time Spent (In Minutes): 34 Total Time Includes: Examination of the Patient, Discharge Planning and Medication Reconciliation Discharge Plan Discharge Items Patient Disposition: Transfer [facility] Reason For Visit: CHEST PAIN Discharge Diagnosis: chest pain Activity: Resume your previous activity Non-emergency contact: Primary Care Provider Call non-emergency contact if: you have any medication questions Follow-up/Referrals: [facility] [Primary Care Provider] - Diet: Heart Healthy Diet Texture: Pureed (blended smooth) Liquid Consistency: [place] thick Addtl Attending Provider Instructions: You have been hospitalized for an acute medical problem. During your stay at [facility], we have made an effort to correct the problem that brought you to the hospital while keeping you as comfortable as possible. Medications were used to bring your condition under control and your discharge instructions will include directions for any medications you should take after leaving the hospital. Please make sure you see your Primary Care Provider as part of your follow up plan. Will recommend discussion with palliative care team at [facility] to discuss transitioning to hospice in the future. Recommend followup with PCP in 1-2 weeks/ Pending Studies at Discharge: No Stand-Alone Forms: My [facility], Smoking Cessation Skilled Items Patient informed of condition?: No DNR: Yes (DNR/DNI) Discharge Level of Care: Skilled Communicable Disease: No Discharge Prognosis: Stable Lines: None Urinary Catheter: No Medications and DC Order Prescriptions: Continued metoprolol tartrate 25 mg tablet 12.5 mg PO BID Qty: 60 RF: 5 acetaminophen [Tylenol Extra Strength] 500 mg Tablet 1,000 mg PO Q12 RF: 0 bisacodyl 10 mg Suppository 10 mg MN DAILY PRN (Reason: Constipation) RF: 0 clopidogrel 75 mg Tablet 75 mg PO QAM Qty: 30 RF: 0 ezetimibe [Zetia] 10 mg Tablet 10 mg PO QAM Qty: 30 RF: 0 Fish Oil 340-1,000 mg Capsule 1 g PO BID Qty: 60 RF: 0 isosorbide mononitrate 30 mg Tablet Extended Release 24 Hr 60 mg PO QAM RF: 0 nitroglycerin [Nitrostat] 0.4 mg Tablet, Sublingual 0.4 mg sublingual DIRECTED PRN (Reason: Chest Pain) RF: 0 acetaminophen 500 mg Tablet 1,000 mg PO UD MDD 3gm/24hr PRN (Reason: Fever Or Pain) RF: 0 amlodipine 10 mg Tablet 10 mg PO DAILY RF: 0 furosemide [Lasix] 40 mg Tablet 40 mg PO 3XWK RF: 0 gabapentin 100 mg Capsule 100 mg PO TID RF: 0 metolazone 5 mg Tablet 5 mg PO 3XWK RF: 0 tramadol 50 mg Tablet 50 mg PO Q12 PRN (Reason: Moderate Pain (Scale Score 5-6)) RF: 0 Refresh Tears 0.5 % Drops 2 drp OPHTHALMIC (EYE) BID PRN (Reason: Dry Eyes) RF: 0 Calmoseptine 0.44-20.6 % Ointment 1 applic TOPICAL BID RF: 0 potassium chloride 20 mEq Tablet Extended Release 20 meq PO DAILY RF: 0 insulin lispro [Humalog U-100 Insulin] 100 unit/mL Solution 1 sliding scale dose SUBCUT USEASDIRECTD RF: 0 Discontinued hydromorphone [Dilaudid] 2 mg Tablet 2 mg PO Q12 PRN (Reason: Severe Pain (Scale Score 7-10)) RF: 0 Discharge Orders: Discharge Order (Routine); Ordered 10/29/19 Ordered By: Sumit Alexis Admission Data Admit Date/Time: 10/27/19 06:01 Attending Provider: Sumit Alexis Admit Provider: Byron Sorensen Primary Care Provider: [facility] Other Providers: Giovanny Puri ; [facility] Denson ; Danilo Duffy III ; Katelynn Fung ; [place] Other Interventions: Discharge Summary Assessment (RN) Last Done: 10/29/19 13:20 DC Date/Time DO NOT enter until pt leaves facility: 10/29/19 14:29 Coding Level of Care Code D/C Day Management >30 mins Diagnoses Change in mental status R41.82 Substernal chest pain R07.2 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
--- NOTE | 2019-11-05 06:37 | Coding Query ---
CHEST PAIN To promote full compliance with coding requirements relating to patient care physician participation is requested in all cases of kelly machine operator uncertainty. Please assist us with the question(s) below: Please list a more specific chest pain diagnosis or cause of chest pain if known by placing an X within the parenthesis (x): ( x) Atypical Chest Pain ( ) Chest Wall Pain ( ) Midsternal Chest Pain ( ) Musculoskeletal Chest Pain ( ) Pleuritic Chest Pain ( ) Substernal Chest Pain ( ) Costochondral Chest Pain ( ) Other (please Specify) ( ) Unable to Determine Thank you [facility]
== END 2019-10-29 14:29 | DRG 313 ==
LOC: ED 02:04 → SUATTDRO 06:01 → 2E 06:01